=== PATIENT | female | born 1960 | race Caucasian/White ===

== ENCOUNTER 2017-03-06 23:59 | Emergency (ER) | payer OTHER ==
[~2017-03-06 23:59] MED LIST: FAMOTIDINE 20 MG/2 ML VIAL ONE; methylPREDNISolone SOD SUCCI 125 MG/2 ML VIAL ONE
== END 2017-03-07 01:50 | disposition home or self-care (01) ==
LOC: EC 23:59
DX: L27.0 Generalized skin eruption due to drugs and medicaments taken internally (principal); R00.2 Palpitations; T39.315A Adverse effect of propionic acid derivatives, initial encounter; Z88.8 Allergy status to other drugs, medicaments and biological substances
CPT/HCPCS: 96374; 96375; 99283

== ENCOUNTER → 2018-01-20 | Outpatient (CLI) | payer OTHER ==
[2018-01-20 10:53] LABS: Albumin 4.1 g/dL (3.5-5.0); Bilirubin, Delta 0.3 mg/dL (0.0-0.2); Bilirubin,Unconjugated 0.3 mg/dL (0.0-1.1); Total Bilirubin 0.6 mg/dL (0.2-1.3)
[2018-01-20 22:29] LABS: Hemoglobin A1C 5.7 % (4.0-6.0)
== END | disposition home or self-care (01) ==
LOC: LABWHC1 09:45
PROVIDERS: ATTEND Internal Medicine Critical Care Medicine
DX: Z00.00 Encounter for general adult medical examination without abnormal findings (principal); E55.9 Vitamin D deficiency, unspecified; E16.2 Hypoglycemia, unspecified; E06.3 Autoimmune thyroiditis
CPT/HCPCS: 36415; 80061; 80076; 82306; 83036; 84443; 84480

== ENCOUNTER → 2018-01-20 | Outpatient (CLI) | payer OTHER ==
[2018-01-20 10:47] LABS: Basophils # (A) 0.1 k/uL (0-0.2); Basophils % (A) 1 %; Eosinophils # (A) 0.3 k/uL (0-0.7); Eosinophils % (A) 4 %; HCT 43.9 % (34.0-46.0); HGB 14.4 gm/dL (11.4-16.0); Lymphocytes # (A) 1.7 k/uL (1.0-4.8); Lymphocytes % (A) 24 %; MCH 29.8 pg (25.0-35.0); MCHC 32.7 g/dL (31.0-37.0); MCV 91.2 fL (80.0-100.0); Mean Platelet Volume 7.6; Monocytes # (A) 0.5 k/uL (0-1.0); Monocytes % (A) 6 %; Neutrophils # (A) 4.5 k/uL (1.3-7.7); Neutrophils % (A) 63 %; Platelet Count 363 k/uL (150-450); RBC 4.81 m/uL (3.80-5.40); RDW 12.1 % (11.5-15.5); WBC 7.1 k/uL (3.8-10.6)
[2018-01-20 10:54] LABS: Potassium 4.6 mmol/L (3.5-5.1)
== END | disposition home or self-care (01) ==
LOC: LABPAT 09:47
PROVIDERS: ATTEND Orthopaedic Surgery
DX: Z01.812 Encounter for preprocedural laboratory examination (principal); M75.41 Impingement syndrome of right shoulder; Z01.818 Encounter for other preprocedural examination
CPT/HCPCS: 80051; 85025

== ENCOUNTER 2018-01-29 08:27 | Day surgery (SDC) | payer OTHER ==
[2018-01-27 12:12] VITALS: BMI 43.3
--- NOTE | 2018-01-28 16:43 | HP ---
HISTORY AND PHYSICAL Latricia Sevilla is a 57-year-old patient seen with progressive right shoulder pain. Treatment options were discussed. She elected to proceed with right shoulder arthroscopy. Consent regarding the procedure was obtained. PAST MEDICAL HISTORY: Hypothyroidism. PAST SURGICAL HISTORY: Cholecystectomy and hysterectomy. MEDICATIONS: Singular, Synthroid. ALLERGIES: NSAID. SOCIAL HISTORY: Patient denies tobacco use. PHYSICAL EXAMINATION: Evaluation right shoulder flexion is 150 degrees, abduction is 140 degrees, external rotation is 40 degrees with pain and weakness. There is tenderness along the anterior lateral acromion rotator cuff insertion site. Impingement sign is positive at 90 degrees. Drop-arm sign is positive. Distal neurovascular exam is intact. RADIOGRAPHS: Right shoulder radiographs revealed a type 2 anterior acromion, evidence for moderate acromioclavicular joint osteoarthritis. An MRI of the right shoulder revealed impingement with partial rotator cuff tear. IMPRESSION: Right shoulder impingement with partial rotator cuff tear and acromioclavicular joint osteoarthritis. PLAN: Right shoulder arthroscopy, subacromial decompression, possible arthroscopic rotator cuff repair, possible Inés procedure and debridement. Surgery scheduled for 01/29/2018. MMODL / IJN: [id number] /
[~2018-01-29 08:27] MED LIST changes: +DEXAMETHASONE SOD PHOSPHATE 10 MG/ML 1 ML VIAL IV ONE; -FAMOTIDINE 20 MG/2 ML VIAL ONE; +LACTATED RINGERS 1,000 ML IV SCH; +LIDOCAINE 1% 20 ML VIAL (10MG/ML) FOR IV START INTRADERMA PRN; +MIDAZOLAM 2 MG/2 ML VIAL IV PRN; +ONDANSETRON 4 MG/2 ML VIAL IVP ONE; +SCOPOLAMINE 1.5MG/72HR PATCH TRANSDERM ONE; +ceFAZolin IN SWFI 2 GM/20 ML SYRINGE IVP ONE; -methylPREDNISolone SOD SUCCI 125 MG/2 ML VIAL ONE
[2018-01-29 08:54] VITALS: RESP 16
[2018-01-29] MEDS ORDERED: MIDAZOLAM 2 MG/2 ML VIAL ONE (09:48)
[2018-01-29] MEDS ORDERED: fentaNYL (PF) 50 MCG/ML 2 ML AMP ONE (09:48)
[2018-01-29] MEDS ORDERED: PHENYLEPHRINE-0.9% NACL SYG 1 MG/10 ML SYRINGE ONE (09:48)
[2018-01-29] MEDS ORDERED: LIDOCAINE 1% INJ 10MG/ML (20 ML MDV) ONE (09:48)
[2018-01-29] MEDS ORDERED: PROPOFOL 10 MG/ML 20 ML VIAL IV ONE (09:48)
[2018-01-29] MEDS ORDERED: SUCCINYLCHOLINE CHLORIDE 100 MG/5 ML SYR IV ONE (09:48)
[2018-01-29] MEDS ORDERED: ROPIVACAINE 5 MG/ML 30 ML VIAL ONE (09:48)
[2018-01-29] MEDS ORDERED: LIDOCAINE 2%-EPI 1:100,000 20 ML VIAL ONE (09:48)
[2018-01-29] MEDS ORDERED: ePHEDrine SULFATE/0.9% NACL/PF 50 MG/5 ML SYRINGE IV ONE (09:48)
[2018-01-29] MEDS ORDERED: LACTATED RINGERS 1,000 ML IV ONE ×3 (10:41→15:31)
[2018-01-29] MEDS: MORPHINE SULFATE 2 MG/ML SYRINGE IV PRN ×3 (11:28→11:47)
--- NOTE | 2018-01-29 11:32 | P.OP ---
Date of Procedure: 01/29/18 Preoperative Diagnosis: Right shoulder impingement Postoperative Diagnosis: 1. Right shoulder rotator cuff tear 2. Right shoulder impingement 3. Right shoulder partial long head biceps tendon tear 4. Right shoulder superficial labral tear Procedure(s) Performed: 1. Right shoulder arthroscopic rotator cuff repair 2. Right shoulder arthroscopic subacromial decompression 3. Right shoulder arthroscopic biceps tenotomy 4. Right shoulder arthroscopic debridement labral tear Implants: 1-valeris 6.5 peek anchor 1-valeris 5.5 peek anchor Anesthesia: GETA, regional (Interscalene block) Surgeon: Rajeev Bartholomew [employer]1: Keegan Kerr Estimated Blood Loss (ml): 10 Pathology: none sent Condition: stable Disposition: PACU Indications for Procedure: 57-year-old patient seen with progressive right shoulder pain. After treatment options were discussed, she elected to proceed with arthroscopy. Operative Findings: see description of procedure Description of Procedure: Patient underwent a shoulder block by department of anesthesia. The patient was then taken to the operative suite. The patient underwent a general anesthetic by the department of anesthesia. The patient was placed into a lateral position and secured. There was appropriate padding of the bony prominence. Right shoulder was then prepped and draped in normal sterile orthopedic fashion. We placed the extremity in 10 pounds of longitudinal traction. A posterior incision was now made for a posterior working portal site. The trocar and cannula were inserted into the glenohumeral joint. Arthroscopy was initiated. Spinal needle was now inserted anteriorly, to ascertain the anterior working portal site. An incision was now made in that area, a trocar was inserted followed by a probe. There was some superficial tearing of the labrum present. Partial tearing long head biceps tendon with some hyperemia. Mild grade 1 chondromalacia changes. No loose bodies. I performed an arthroscopic biceps tenotomy. I debrided the labral tear down to stable tissue. Residual labrum was stable. Instruments now removed from glenohumeral joint. Utilizing the posterior working portal site, the trocar and cannula were inserted into the subacromial space. Arthroscopy initiated. I made an incision 2 fingerbreadths lateral to the acromion. I introduced my trocar followed by my [employer] ablator. I now began ablating thick subacromial bursal tissue, which exposed the undersurface of the anterior acromion. This was diminished subacromial space. There was a very prominent anterior acromion. A motorized bur was introduced and a subacromial decompression was performed. I also excised some osteophytes off the inferior aspect of the distal clavicle. The AC joint was visualized and noted to be moderately arthritic, not enough toward a Inés procedure. I turned my attention to the rotator cuff. There was a 1.5 cm tear along the anterior aspect of the super spinous. It was freely mobile over the footprint. I debrided the margins on a stable tissue. I abraded the footprint with a motorized bur. I passed 2 everted mattress sutures through good bites of rotator cuff tendon. I went to repair the tendon with a 5.5 lateral anchor and noted very soft bone. We now converted that to a 6.5 anchor which gave us reasonable purchase. We did have a dogear posteriorly. I passed a suture loop through that and then introduced a 5.5 anchor pulling that dogear down and compressing on the footprint nicely. Residual suture limbs were clipped. We had a good stable repair. I injected 1 mL UCT intra-articular. Instruments now removed from the portal sites. All portal sites were approximated with nylon suture. Sterile dressings were applied followed by a shoulder immobilizer. Luis Antonio RAMIREZ assisted with the procedure. The patient was awakened, transferred to a bed, and taken to recovery in stable condition.
[2018-01-29 11:35] VITALS: TEMP 96.9
[2018-01-29] MEDS ORDERED: diphenhydrAMINE 50 MG/ML 1 ML VIAL IVP ONE (11:39)
[2018-01-29] MEDS ORDERED: FAMOTIDINE 20 MG/2 ML VIAL IVP ONE (14:57)
[2018-01-29 15:03] LABS: Glucose,Whole Blood 110 mg/dL (75-99)
[2018-01-29] MEDS ORDERED: ONDANSETRON 4 MG/2 ML VIAL IVP ONE (15:17)
[2018-01-29 16:08] VITALS: BP 176/80; PULSE 58
--- NOTE | 2018-01-29 19:50 | P.ONQ ---
Anesthesiology Proc Note - PNB - Peripheral Nerve Block Performed Right Interscalene Single Time Out Performed: Yes Procedure Start Time: : Procedure Stop Time: :34 Indication: Acute Post-Operative Pain Sedation Type: Sedate with meaningful contact maintained Preparation: Sterile Prep Needle Size: 50mm (2") Needle Gauge: 21 Technique: Ultrasound Injectate: 0.5% Ropivacaine (see comment for volume) (ropi.5% 30cc) Blood Aspirated: No Pain Paresthesia on Injection Noted: No Resistance on Injection: Normal Events: Uneventful and Well Tolerated
== END 2018-01-29 16:45 | disposition home or self-care (01) ==
LOC: OR 08:27
PROVIDERS: ATTEND Orthopaedic Surgery
DX: M75.41 Impingement syndrome of right shoulder (principal); M19.011 Primary osteoarthritis, right shoulder; S46.111A Strain of muscle, fascia and tendon of long head of biceps, right arm, initial encounter; S43.491A Other sprain of right shoulder joint, initial encounter; M94.211 Chondromalacia, right shoulder; X58.XXXA Exposure to other specified factors, initial encounter; E03.9 Hypothyroidism, unspecified; Z79.899 Other long term (current) drug therapy; Z79.890 Hormone replacement therapy; Z88.6 Allergy status to analgesic agent; Z88.8 Allergy status to other drugs, medicaments and biological substances
CPT/HCPCS: 64415; 29822; 29826; 29827; C1713 ×2; C1765; J2250; J1200; J2405; J2001; J3010; J2270; J2795; J2370; J0330; J2704; J0690

== ENCOUNTER 2018-07-27 19:16 | Emergency (ER) | payer OTHER ==
[2018-07-27 19:36] VITALS: BP 165/85; PULSE 68; RESP 18; TEMP 98.1
[2018-07-27] MEDS ORDERED: TOPICAL SKIN ADHESIVE 1 EACH AMP TOPICAL ONE (19:46)
--- NOTE | 2018-07-27 19:55 | ED ---
General Adult HPI - General Chief complaint: Wound/Laceration Stated complaint: finger lac Time Seen by Provider: 07/27/18 19:40 Source: patient, RN notes reviewed Mode of arrival: ambulatory Limitations: no limitations - History of Present Illness Initial comments: Patient's a 58-year-old female presented to the emergency room today with a chief complaint of laceration to the left index finger. Patient does admit that she was cutting a piece of bread with a serrated bread knife earlier today when asked slipped causing this laceration. Patient does admit that she's had some mild bleeding since. Patient states her tetanus is up-to-date. She denies any other complaints or symptoms. - Related Data Home Medications Medication Instructions Recorded Confirmed Levothyroxine Sodium [Synthroid] 125 mcg PO DAILY 11/01/15 01/29/18 Omeprazole/Sodium Bicarbonate 1 each PO BID 11/01/15 01/29/18 [Zegerid 20 mg Capsule] Cholecalciferol (Vitamin D3) 2,000 unit PO DAILY 01/27/18 01/29/18 [Vitamin D3] Montelukast [Singulair] 10 mg PO DAILY 01/27/18 01/29/18 Allergies Allergy/AdvReac Type Severity Reaction Status Date / Time aspirin Allergy Rash/Hives Verified 07/27/18 19:36 NSAIDS (Non-Steroidal Allergy Rash/Hives Verified 07/27/18 19:36 Anti-Inflamma Review of Systems ROS Statement: Those systems with pertinent positive or pertinent negative responses have been documented in the HPI. ROS Other: All systems not noted in ROS Statement are negative. Past Medical History Past Medical History: GERD/Reflux, Thyroid Disorder Additional Past Medical History / Comment(s): sm hiatal hernia, IBS, History of Any Multi-Drug Resistant Organisms: None Reported Past Surgical History: Appendectomy, Cholecystectomy, Hysterectomy Additional Past Surgical History / Comment(s): Rotator cuff right arm Past Anesthesia/Blood Transfusion Reactions: Motion Sickness, Postoperative Nausea & Vomiting (PONV) Past Psychological History: No Psychological Hx Reported Smoking Status: Former smoker Past Alcohol Use History: None Reported Past Drug Use History: None Reported - Past Family History Mother Family Medical History: Cancer Father Family Medical History: Cancer General Exam - General Exam Comments Initial Comments: General: The patient is awake and alert, in no distress, and does not appear acutely ill. Neck: The neck is supple, there is no tenderness or JVD. Musculoskeletal: Full range motion. Sensation intact. Strength 5/5. Neurological: A&O x 3. CN II-XII intact, There are no obvious motor or sensory deficits. Coordination appears grossly intact. Speech is normal. Skin: 1 cm linear laceration to the posterior medial aspect of the left index finger. No active bleeding. Psychiatric: Normal mood and affect. Limitations: no limitations Course Vital Signs 07/27/18 19:35 Temperature 98.1 F Pulse Rate 68 Respiratory 18 Rate Blood Pressure 165/85 O2 Sat by Pulse 95 Oximetry Procedures - Procedures Initial comment: (Finger was cleaned with saline. Wound edges were approximated and closed with skin adhesive. Patient tolerated the procedure well. Medical Decision Making - Medical Decision Making Options were discussed with patient about sutures versus glue. She has opted for glue. Area was cleaned with saline and skin adhesive was applied. She tolerated the procedure well. Patient advised watching for any signs of infection. Advised return for any other concerns. Disposition Clinical Impression: Laceration Disposition: HOME SELF-CARE Condition: Good Instructions: Laceration (ED) Additional Instructions: Please allow the glue to fall off on its own over the next 3-5 days. Please watch for any signs of infection which may include increased pain, swelling, redness, fever or chills. Please return to emergency room for any other concerns. Is patient prescribed a controlled substance at d/c from ED?: No Referrals: Jake Fleton MD [Primary Care Provider] - 1-2 days Time of Disposition: 19:55
== END 2018-07-27 20:18 | disposition home or self-care (01) ==
LOC: EC 19:16
DX: S61.211A Laceration without foreign body of left index finger without damage to nail, initial encounter (principal); K21.9 Gastro-esophageal reflux disease without esophagitis; E07.9 Disorder of thyroid, unspecified; Z87.891 Personal history of nicotine dependence; Z88.6 Allergy status to analgesic agent; Z79.899 Other long term (current) drug therapy; W26.0XXA Contact with knife, initial encounter; Y93.89 Activity, other specified
CPT/HCPCS: 99282

== ENCOUNTER → 2018-11-13 | Outpatient (CLI) | payer OTHER ==
--- NOTE | 2018-11-19 08:48 | MM ---
Reason for exam: additional evaluation requested from prior study. Last mammogram was performed 19 years and 5 months ago. History: Patient is postmenopausal. Family history of breast cancer in mother at age 45 and breast cancer in maternal aunt at age 35. Benign ultrasound-guided cyst aspiration, June 20, 1999. Physical Findings: Nurse did not find any significant physical abnormalities on exam. [facility] Diagnostic Mammo w CAD DOROTHY Bilateral CC and MLO view(s) were taken. Prior study comparison: March 28, 2017, mammogram. March 31, 2012, mammogram. The breast tissue is heterogeneously dense. This may lower the sensitivity of mammography. There is a left upper outer quadrant mass less conspicuous than in 2012. There are benign appearing stable regional upper outer quadrant bilateral calcifications similar to priors dating back to 2011. No suspicious abnormality. No significant new findings when compared with previous films. These results were verbally communicated with the patient and result sheet given to the patient on 11/13/18. ASSESSMENT: Benign, BI-RAD 2 RECOMMENDATION: Routine screening mammogram of both breasts in 1 year.
== END | disposition home or self-care (01) ==
LOC: RADMAMWWP 13:42
PROVIDERS: ATTEND Internal Medicine Critical Care Medicine
DX: R92.8 Other abnormal and inconclusive findings on diagnostic imaging of breast (principal)
CPT/HCPCS: 77066

== ENCOUNTER → 2018-11-18 | Outpatient (CLI) | payer OTHER ==
[2018-11-18 10:30] LABS: Basophils # (A) 0.1 k/uL (0-0.2); Basophils % (A) 1 %; Eosinophils # (A) 0.4 k/uL (0-0.7); Eosinophils % (A) 5 %; HGB 13.7 gm/dL (11.4-16.0); Lymphocytes # (A) 1.8 k/uL (1.0-4.8); Lymphocytes % (A) 25 %; MCH 29.6 pg (25.0-35.0); MCHC 31.8 g/dL (31.0-37.0); MCV 93.2 fL (80.0-100.0); Mean Platelet Volume 7.5; Monocytes # (A) 0.5 k/uL (0-1.0); Monocytes % (A) 7 %; Neutrophils # (A) 4.1 k/uL (1.3-7.7); Neutrophils % (A) 58 %; Platelet Count 418 k/uL (150-450); RBC 4.61 m/uL (3.80-5.40); RDW 12.4 % (11.5-15.5)
[2018-11-18 16:23] LABS: Albumin/Globulin Ratio 1.74 (1.20-2.10); Anion Gap 6.1 mmol/L (4.00-12.00); Calcium 9.2 mg/dL (8.7-10.3); Carbon Dioxide 25.9 mmol/L (21.6-31.8); Globulin 2.3 g/dL (1.6-3.3); Potassium 4.6 mmol/L (3.5-5.5); Total Bilirubin 0.5 mg/dL (0.2-1.2); Total Protein 6.3 g/dL (6.2-8.2)
[2018-11-18 16:31] LABS: T4, Free (Free Thyroxine) 1.9 ng/dL (0.80-1.80)
== END | disposition home or self-care (01) ==
LOC: LABWHC1 08:51
PROVIDERS: ATTEND Internal Medicine Critical Care Medicine
DX: E78.5 Hyperlipidemia, unspecified (principal); E06.3 Autoimmune thyroiditis
CPT/HCPCS: 36415; 80053; 80061; 84439; 84443; 85025

== ENCOUNTER 2018-12-08 11:51 | Emergency (ER) | payer OTHER ==
[2018-12-08 12:12] VITALS: RESP 18
--- NOTE | 2018-12-08 12:33 | ED ---
General Adult HPI - General Chief complaint: Abdominal Pain Stated complaint: abd pain Time Seen by Provider: 12/08/18 12:32 Source: patient, RN notes reviewed Mode of arrival: ambulatory Limitations: no limitations - History of Present Illness Initial comments: 58-year-old female with a past medical history of GERD, thyroid disorder, hiatal hernia, IBS presents to the emergency department for a chief complaint of back and abdominal pain. Patient states she has had low back pain for the past week. She states this is worse with movement. Patient states today it hurt to bend down and put her socks on. Patient denies any fevers or chills. She denies any nausea or vomiting. Patient denies any weakness in the legs or radiating pain into the legs. She denies any bladder or bowel changes but does states she feels like she has pressure over her bladder. She also admits that her stools have been thinner than normal over the past several days. Patient also complains of a lower abdominal pressure. Patient has a history of appendectomy. Patient states his abdominal pain just started today. Patient has no other complaints at this time including shortness of breath, chest pain, abdominal pain, nausea or vomiting, headache, or visual changes. - Related Data Home Medications Medication Instructions Recorded Confirmed Levothyroxine Sodium [Synthroid] 125 mcg PO DAILY 11/01/15 12/08/18 Omeprazole/Sodium Bicarbonate 1 cap PO DAILY 11/01/15 12/08/18 [Zegerid 20 mg Capsule] Cetirizine HCl [Zyrtec] 10 mg PO DAILY 12/08/18 12/08/18 EPINEPHrine (Auto Inject) [Epipen] 0.3 mg IM ONCE PRN 12/08/18 12/08/18 Ergocalciferol (Vitamin D2) 50,000 unit PO FR 12/08/18 12/08/18 [Vitamin D2] Fluticasone Nasal Rosebud [Flonase 1 spray EA NOSTRIL DAILY 12/08/18 12/08/18 Nasal Rosebud] Allergies Allergy/AdvReac Type Severity Reaction Status Date / Time aspirin Allergy Rash/Hives Verified 12/08/18 12:30 NSAIDS (Non-Steroidal Allergy Rash/Hives Verified 12/08/18 12:30 Anti-Inflamma Review of Systems ROS Statement: Those systems with pertinent positive or pertinent negative responses have been documented in the HPI. ROS Other: All systems not noted in ROS Statement are negative. Past Medical History Past Medical History: GERD/Reflux, Thyroid Disorder Additional Past Medical History / Comment(s): sm hiatal hernia, IBS, History of Any Multi-Drug Resistant Organisms: None Reported Past Surgical History: Appendectomy, Cholecystectomy, Hysterectomy Additional Past Surgical History / Comment(s): Rotator cuff right arm Past Anesthesia/Blood Transfusion Reactions: Motion Sickness, Postoperative Nausea & Vomiting (PONV) Past Psychological History: No Psychological Hx Reported Smoking Status: Former smoker Past Alcohol Use History: None Reported Past Drug Use History: None Reported - Past Family History Mother Family Medical History: Cancer Father Family Medical History: Cancer General Exam Limitations: no limitations Course Vital Signs 12/08/18 12/08/18 12:11 16:21 Temperature 98.5 F 97.7 F Pulse Rate 85 70 Respiratory 18 18 Rate Blood Pressure 167/100 181/87 O2 Sat by Pulse 98 94 L Oximetry Medical Decision Making - Medical Decision Making 58-year-old female presents to the emergency department for a chief complaint of back pain and abdominal pain. Back pain has been ongoing for the past week. Patient denies any radiating pain down the legs or weakness in the bilateral legs. She denies any bladder or bowel changes but does like she has pressure over her bladder. Postvoid residual 45 which is minimal. Rectal tone intact. PD pulses 2+ bilaterally. Abdomen has moderate tenderness noted to the lower aspect, no upper abdominal tenderness. CBC and CMP are unremarkable. Urine does not show any evidence of infection. CT of the abdomen and pelvis with contrast shows no acute intra-abdominal process. However there is a grade 1 anterolisthesis of L5 on S1 without pars interarticularis defects as well as mild multilevel degenerative changes. Likely cause of patient's back pain, will be referred to Dr. Barrera. Mild hepatic steatosis and right renal scarring also discussed with patient, no kidney failure evident at this time. Very small hiatal hernia present which patient is aware of. On reevaluation patient is feeling much better. I did discuss these findings with her and she will follow-up with Dr. Barrera for back pain as well as her GI specialist Dr. Galvez for abdominal pain. Discussed returning here if she has any worsening symptoms. - Lab Data Result diagrams: 12/08/18 13:31 12/08/18 13:31 Lab Results 12/08/18 12/08/18 12/08/18 Range/Units 13:31 13:31 13:31 WBC 8.0 (3.8-10.6) k/uL RBC 4.89 (3.80-5.40) m/uL Hgb 15.2 (11.4-16.0) gm/dL Hct 45.0 (34.0-46.0) % MCV 92.0 (80.0-100.0) fL MCH 31.1 (25.0-35.0) pg MCHC 33.8 (31.0-37.0) g/dL RDW 12.4 (11.5-15.5) % Plt Count 393 (150-450) k/uL Neutrophils % 66 % Lymphocytes % 20 % Monocytes % 7 % Eosinophils % 3 % Basophils % 2 % Neutrophils # 5.3 (1.3-7.7) k/uL Lymphocytes # 1.6 (1.0-4.8) k/uL Monocytes # 0.6 (0-1.0) k/uL Eosinophils # 0.2 (0-0.7) k/uL Basophils # 0.1 (0-0.2) k/uL Sodium 141 (137-145) mmol/L Potassium 5.0 (3.5-5.1) mmol/L Chloride 107 (98-107) mmol/L Carbon Dioxide 26 (22-30) mmol/L Anion Gap 8 mmol/L BUN 16 (7-17) mg/dL Creatinine 0.75 (0.52-1.04) mg/dL Est GFR (CKD-EPI)AfAm >90 (>60 ml/min/1.73 sqM) Est GFR (CKD-EPI)NonAf 88 (>60 ml/min/1.73 sqM) Glucose 105 H (74-99) mg/dL Calcium 10.1 (8.4-10.2) mg/dL Total Bilirubin 0.7 (0.2-1.3) mg/dL AST 23 (14-36) U/L ALT 30 (9-52) U/L Alkaline Phosphatase 101 (38-126) U/L Total Protein 7.7 (6.3-8.2) g/dL Albumin 4.5 (3.5-5.0) g/dL Amylase 45 (30-110) U/L Lipase 105 (23-300) U/L Urine Color Light Yellow Urine Appearance Clear (Clear) Urine pH 5.5 (5.0-8.0) Ur Specific Bledsoe 1.007 (1.001-1.035) Urine Protein Negative (Negative) Urine Glucose (UA) Negative (Negative) Urine Ketones Negative (Negative) Urine Blood Negative (Negative) Urine Nitrite Negative (Negative) Urine Bilirubin Negative (Negative) Urine Urobilinogen <2.0 (<2.0) mg/dL Ur Leukocyte Esterase Negative (Negative) Disposition Clinical Impression: Abdominal pain, Anterolisthesis Disposition: HOME SELF-CARE Condition: Good Instructions: Abdominal Pain (ED), Back Pain (ED) Additional Instructions: Take Tylenol [address] or operate machinery while taking Tylenol 3. Please follow up with Dr. Galvez for abdominal pain. Follow-up with Dr. Barrera for back pain. Follow up with her primary care as well. Return to the emergency department if you have any worsening symptoms or symptoms are not resolving. Is patient prescribed a controlled substance at d/c from ED?: No Referrals: Jake Felton MD [Primary Care Provider] - 1-2 days Silvana Galvez MD [STAFF PHYSICIAN] - 1-2 days Yessenia Barrera DO [Doctor of Osteopathic Medicine] - 1-2 days Time of Disposition: 15:57
[2018-12-08] MEDS ORDERED: SODIUM CHLORIDE 0.9% 1,000 ML IV STA (13:01)
[2018-12-08] MEDS ORDERED: ONDANSETRON 4 MG/2 ML VIAL IVP STA (13:02)
[2018-12-08] MEDS ORDERED: MORPHINE SULFATE 4 MG/ML SYRINGE IVP STA (13:02)
[2018-12-08 14:02] LABS: Basophils # (A) 0.1 k/uL (0-0.2); Basophils % (A) 2 %; Eosinophils # (A) 0.2 k/uL (0-0.7); Eosinophils % (A) 3 %; HGB 15.2 gm/dL (11.4-16.0); Lymphocytes # (A) 1.6 k/uL (1.0-4.8); Lymphocytes % (A) 20 %; MCH 31.1 pg (25.0-35.0); MCHC 33.8 g/dL (31.0-37.0); Mean Platelet Volume 7.3; Monocytes # (A) 0.6 k/uL (0-1.0); Monocytes % (A) 7 %; Neutrophils # (A) 5.3 k/uL (1.3-7.7); Neutrophils % (A) 66 %; Platelet Count 393 k/uL (150-450); RBC 4.89 m/uL (3.80-5.40); RDW 12.4 % (11.5-15.5)
[2018-12-08 14:11] LABS: Appearance,Urine Clear (Clear); Bilirubin,Urine Negative (Negative); Blood,Urine Negative (Negative); Color,Urine Light Yellow; Glucose,Urine (UA) Negative (Negative); Ketones,Urine Negative (Negative); Leukocyte Esterase,Urine Negative (Negative); Nitrite,Urine Negative (Negative); PH, Urine 5.5 (5.0-8.0); Protein,Urine Negative (Negative); Specific Gravity,Urine 1.007 (1.001-1.035); Urobilinogen,Urine <2.0 mg/dL (<2.0)
[2018-12-08 14:13] LABS: ALT 30 U/L (9-52); AST 23 U/L (14-36); Albumin 4.5 g/dL (3.5-5.0); Alkaline Phosphatase 101 U/L (38-126); Amylase 45 U/L (30-110); Anion Gap 8 mmol/L; Blood Urea Nitrogen 16 mg/dL (7-17); Calcium 10.1 mg/dL (8.4-10.2); Carbon Dioxide 26 mmol/L (22-30); Chloride 107 mmol/L (98-107); Glucose 105 mg/dL (74-99); Lipase 105 U/L (23-300); Sodium 141 mmol/L (137-145); Total Bilirubin 0.7 mg/dL (0.2-1.3); Total Protein 7.7 g/dL (6.3-8.2)
[2018-12-08] MEDS ORDERED: Acetaminophen-Codeine 300-30mg TAB PO STA (14:55)
--- NOTE | 2018-12-08 14:56 | CT ---
EXAMINATION TYPE: CT abdomen pelvis w con DATE OF EXAM: 12/08/2018 HISTORY: Abdominal pain and back pain for approximately one week CT DLP: 1387.8mGycm Automated Exposure Control for Dose Reduction was Utilized. CONTRAST: CT scan of the abdomen and pelvis is performed with IV Contrast, patient injected with 100 mL of Isov ue 300. COMPARISON: None. FINDINGS: LUNG BASES: No significant abnormality is appreciated. LIVER/GB: Hepatic parenchyma is diffusely hypoattenuated in comparison to that of the spleen, most co mmonly seen in hepatic steatosis. This finding limits evaluation for hepatic masses. No gross evidenc e of hepatic mass is seen. No intrahepatic biliary ductal dilatation. The gallbladder surgically abse nt. PANCREAS: No significant abnormality is seen. SPLEEN: No significant abnormality is seen. ADRENALS: No significant abnormality is seen. KIDNEYS: Cortical scarring is seen of the right upper pole with subsequent minor calyceal dilatation and/or calyceal diverticulum on delayed images. BOWEL: There is a very small hiatal hernia noted. No dilated large or small bowel is seen. No pericol onic or perienteric fat stranding. Appendix is not visualized however no right lower quadrant inflamm atory changes are noted. LYMPH NODES: No greater than 1cm abdominal or pelvic lymph nodes are appreciated. OSSEOUS STRUCTURES: There is grade 1 anterolisthesis of L5 on S1 without pars interarticularis defect s. This may be on a degenerative basis and results in disc uncovering. Minimal degenerative changes o f the remainder the visualized lumbosacral spine are noted. OTHER: Mild atherosclerosis is seen of the abdominal aorta and its branches. There is a very small fa t filled umbilical hernia. IMPRESSION: 1. No acute intra-abdominal process. 2. Mild multilevel degenerative changes of the visualized thoracal lumbar spine in this patient with back pain. There is grade 1 anterolisthesis of L5 on S1 without pars interarticularis defects. 3. Mild hepatic steatosis. 4. Right renal scarring. 5. Very small hiatal hernia.
[2018-12-08] MEDS ORDERED: ACET/COD 300 MG/30 MG STARTER PACK 6 TAB BTL PO STA (15:58)
[2018-12-08 16:22] VITALS: BP 181/87; PULSE 70; TEMP 97.7
== END 2018-12-08 16:22 | disposition home or self-care (01) ==
LOC: EC 11:51
DX: R10.9 Unspecified abdominal pain (principal); M43.17 Spondylolisthesis, lumbosacral region; K76.0 Fatty (change of) liver, not elsewhere classified; K44.9 Diaphragmatic hernia without obstruction or gangrene; K21.9 Gastro-esophageal reflux disease without esophagitis; E07.9 Disorder of thyroid, unspecified; Z79.51 Long term (current) use of inhaled steroids; Z79.899 Other long term (current) drug therapy; Z88.6 Allergy status to analgesic agent; Z87.891 Personal history of nicotine dependence; Z90.49 Acquired absence of other specified parts of digestive tract; Z90.89 Acquired absence of other organs; Z90.710 Acquired absence of both cervix and uterus
CPT/HCPCS: 36415; 93005; 80053; 82150; 83690; 85025; 81003; 74177; 99284; 96360; Q9967

== ENCOUNTER → 2019-04-06 | Outpatient (CLI) | payer OTHER ==
--- NOTE | 2019-04-06 10:29 | US ---
EXAMINATION TYPE: US thyroid st tissue head/neck DATE OF EXAM: 04/06/2019 COMPARISON: NONE CLINICAL HISTORY: E04.9 Goiter. GLAND SIZE: Right Lobe: 6.4 x 3.9 x 6.1 cm Overall Parenchyma: cyst obscures thyroid tissue Left Lobe: 2.7 x 1.1 x 0.7 cm Overall Parenchyma: heterogeneous Isthmus Thickness: 0.3 cm NODULES RIGHT: # of nodules measured on right: 1 1. 6.1 X 3.7 x 5.6 cm anechoic cystic nodule at the mid pole with well-defined margins. This nodul e is wider than tall and shows no intranodular vascularity. No prior LEFT: # of nodules measured on left: 0 ISTHMUS: # of nodules measured in the isthmus: 0 Bilateral neck scanned, no evidence of lymphadenopathy. IMPRESSION: Thyroid gland is diffusely heterogenous and atrophic (large right cyst increases measurements of the right thyroid gland). Findings most commonly related to chronic thyroiditis. The 6 cm cyst appears sm oothly marginated and is likely benign however aspiration with cytology could be performed given its large size versus short-term surveillance.
== END | disposition home or self-care (01) ==
LOC: RADUSWWP 07:39
PROVIDERS: ATTEND Internal Medicine Critical Care Medicine
DX: E03.4 Atrophy of thyroid (acquired) (principal); E04.1 Nontoxic single thyroid nodule
CPT/HCPCS: 76536

== ENCOUNTER 2019-05-11 12:27 | Day surgery (SDC) | payer OTHER ==
[2019-05-11 13:01] VITALS: RESP 16; TEMP 98
[2019-05-11] MEDS ORDERED: ALPRAZolam 0.5 MG TAB PO STA (13:08)
[2019-05-11 14:40] VITALS: BP 138/82; PULSE 69
--- NOTE | 2019-05-11 15:05 | US ---
ULTRASOUND GUIDED FNA THYROID BIOPSY: CLINICAL HISTORY: Large right 6 cm thyroid cyst requested for fine-needle aspiration FINDINGS: The procedure was explained to the patient. The risks, complications, benefits and alternatives were discussed and any questions were answered. Informed consent was obtained. Patient was placed supin e on the ultrasound table and prepped and draped in the usual sterile fashion. Utilizing a 25 gauge needle, single pass was made into the large right thyroid cyst and approximately 44 cc of serous flui d was aspirated and sent to pathology for analysis. There is no solid component. Patient was stable throughout the procedure. Pathology is pending. All elements of maximal barrier technique were utilized. IMPRESSION: 1. Successful ultrasound guided FNA thyroid biopsy.
== END 2019-05-11 14:10 | disposition home or self-care (01) ==
LOC: RADPROMAIN 12:27
PROVIDERS: ATTEND Internal Medicine Endocrinology, Diabetes & Metabolism
DX: E04.1 Nontoxic single thyroid nodule (principal)
CPT/HCPCS: 10005; 88173; 88305

== ENCOUNTER 2020-08-08 16:43 | Emergency (ER) | payer OTHER ==
[2020-08-08] MEDS ORDERED: PANTOPRAZOLE 40 MG/10 ML VIAL IVP STA (17:06)
[2020-08-08] MEDS ORDERED: IOPAMIDOL CONTRAST (ORAL USE) VIAL PO PRN (17:06)
[2020-08-08] MEDS ORDERED: ONDANSETRON 4 MG/2 ML VIAL IVP STA (17:06)
[2020-08-08] MEDS ORDERED: DICYCLOMINE 10 MG/ML 2 ML AMP IM STA (17:06)
[2020-08-08] MEDS ORDERED: SODIUM CHLORIDE 0.9% 1,000 ML IV STA (17:06)
--- NOTE | 2020-08-08 17:11 | ED ---
General Adult HPI - General Chief complaint: Abdominal Pain Stated complaint: abd pain Time Seen by Provider: 08/08/20 16:56 Source: patient, RN notes reviewed Mode of arrival: ambulatory Limitations: no limitations - History of Present Illness Initial comments: Patient is a pleasant 60-year-old female presenting to the emergency Department with complaints of abdominal discomfort. Onset of symptoms was around 4 days ago. Symptoms have been fairly steady since that time. Symptoms are worsened with occasional foods. Discomfort is upper abdomen, epigastric and left upper epigastric. Patient has some mild nausea without vomiting. Patient has had diarrhea around 4 times per day which is not terribly abnormal for her. No dysuria or hematuria. Patient does have history of GERD and hiatal hernia. - Related Data Home Medications Medication Instructions Recorded Confirmed Levothyroxine Sodium [Synthroid] 100 mcg PO DAILY 11/01/15 05/06/19 Omeprazole/Sodium Bicarbonate 1 cap PO DAILY 11/01/15 05/06/19 [Zegerid 20 mg Capsule] EPINEPHrine (Auto Inject) [Epipen] 0.3 mg IM ONCE PRN 12/08/18 05/06/19 Ergocalciferol (Vitamin D2) 50,000 unit PO FR 12/08/18 05/06/19 [Vitamin D2] Fluticasone Nasal [place] [Flonase 1 spray EA NOSTRIL DAILY 12/08/18 05/06/19 Nasal [place]] Montelukast [Singulair] 10 mg PO DAILY 05/06/19 05/11/19 Previous Rx's Medication Instructions Recorded Dicyclomine [Bentyl] 20 mg PO QID PRN #20 tablet 08/08/20 Allergies Allergy/AdvReac Type Severity Reaction Status Date / Time aspirin Allergy Rash/Hives Verified 08/08/20 16:52 NSAIDS (Non-Steroidal Allergy Rash/Hives Verified 08/08/20 16:52 Anti-Inflamma hydromorphone [From Dilaudid] AdvReac Unknown Verified 08/08/20 20:25 Review of Systems ROS Statement: Those systems with pertinent positive or pertinent negative responses have been documented in the HPI. ROS Other: All systems not noted in ROS Statement are negative. Constitutional: Denies: fever Eyes: Denies: eye pain ENT: Denies: ear pain Respiratory: Denies: cough Cardiovascular: Denies: chest pain Endocrine: Denies: fatigue Gastrointestinal: Reports: as per HPI, abdominal pain, nausea, diarrhea. Denies: vomiting Genitourinary: Denies: dysuria Musculoskeletal: Denies: back pain Skin: Denies: rash Neurological: Denies: weakness Past Medical History Past Medical History: GERD/Reflux, Thyroid Disorder Additional Past Medical History / Comment(s): sm hiatal hernia, IBS, History of Any Multi-Drug Resistant Organisms: None Reported Past Surgical History: Appendectomy, Cholecystectomy, Hysterectomy, Tonsil lectomy Additional Past Surgical History / Comment(s): Rotator cuff right arm Past Anesthesia/Blood Transfusion Reactions: Motion Sickness, Postoperative Nausea & Vomiting (PONV) Past Psychological History: Depression Smoking Status: Former smoker Past Alcohol Use History: None Reported Past Drug Use History: None Reported - Past Family History Mother Family Medical History: Cancer Father Family Medical History: Cancer General Exam Limitations: no limitations General appearance: alert, in no apparent distress Head exam: Present: normocephalic Eye exam: Present: normal appearance Neck exam: Present: normal inspection Respiratory exam: Present: normal lung sounds bilaterally Cardiovascular Exam: Present: regular rate, normal rhythm Expanded Peripheral pulses: 2+: Posterior Tibialis (R), Posterior Tibialis (L), Dorsalis Pedis (R), Dorsalis Pedis (L) GI/Abdominal exam: Present: soft, tenderness (Moderate tenderness left upper quadrant), normal bowel sounds. Absent: distended, guarding, rebound, rigid, pulsatile mass Extremities exam: Present: normal inspection Neurological exam: Present: alert Psychiatric exam: Present: normal affect, normal mood Skin exam: Present: normal color Course Vital Signs 08/08/20 08/08/20 08/08/20 16:49 18:30 19:15 Temperature 98.4 F 98.0 F Pulse Rate 94 80 97 Respiratory 18 18 18 Rate Blood Pressure 170/88 173/91 181/94 O2 Sat by Pulse 98 98 100 Oximetry 08/08/20 08/08/20 08/08/20 19:56 20:20 21:00 Temperature Pulse Rate 97 87 89 Respiratory 20 18 18 Rate Blood Pressure 190/118 185/90 153/86 O2 Sat by Pulse 98 99 96 Oximetry EKG Findings - EKG Comments: EKG Findings:: Neuro complex rate of 89. NM 150. QRS 84. QT 366. QTc 445. Normal axis. Normal QRS. No acute ST change. Medical Decision Making - Medical Decision Making Patient reevaluated and resting comfortably in bed. Patient is feeling much better. Abdomen soft and nontender. Patient states she feels the Bentyl helps her and requests a prescription for this. Patient is advised follow-up, including GI follow-up for endoscopy. - Lab Data Result diagrams: 08/08/20 17:25 08/08/20 17:25 Lab Results 08/08/20 08/08/20 08/08/20 Range/Units 17:25 17:25 17:25 WBC 11.6 H (3.8-10.6) k/uL RBC 4.93 (3.80-5.40) m/uL Hgb 15.1 (11.4-16.0) gm/dL Hct 44.8 (34.0-46.0) % MCV 91.0 (80.0-100.0) fL MCH 30.6 (25.0-35.0) pg MCHC 33.6 (31.0-37.0) g/dL RDW 11.7 (11.5-15.5) % Plt Count 449 (150-450) k/uL Neutrophils % 75 % Lymphocytes % 13 % Monocytes % 7 % Eosinophils % 2 % Basophils % 1 % Neutrophils # 8.7 H (1.3-7.7) k/uL Lymphocytes # 1.5 (1.0-4.8) k/uL Monocytes # 0.8 (0-1.0) k/uL Eosinophils # 0.2 (0-0.7) k/uL Basophils # 0.2 (0-0.2) k/uL PT 10.0 (9.0-12.0) sec INR 1.0 (<1.2) APTT 24.7 (22.0-30.0) sec Sodium (137-145) mmol/L Potassium (3.5-5.1) mmol/L Chloride (98-107) mmol/L Carbon Dioxide (22-30) mmol/L Anion Gap mmol/L BUN (7-17) mg/dL Creatinine (0.52-1.04) mg/dL Est GFR (CKD-EPI)AfAm (>60 ml/min/1.73 sqM) Est GFR (CKD-EPI)NonAf (>60 ml/min/1.73 sqM) Glucose (74-99) mg/dL Calcium (8.4-10.2) mg/dL Total Bilirubin (0.2-1.3) mg/dL AST (14-36) U/L ALT (4-34) U/L Alkaline Phosphatase (38-126) U/L Total Protein (6.3-8.2) g/dL Albumin (3.5-5.0) g/dL Amylase (30-110) U/L Lipase (23-300) U/L Urine Color Yellow Urine Appearance Cloudy H (Clear) Urine pH 6.0 (5.0-8.0) Ur Specific [place] 1.027 (1.001-1.035) Urine Protein Trace H (Negative) Urine Glucose (UA) Negative (Negative) Urine Ketones Negative (Negative) Urine Blood Negative (Negative) Urine Nitrite Negative (Negative) Urine Bilirubin Negative (Negative) Urine Urobilinogen 2.0 (<2.0) mg/dL Ur Leukocyte Esterase Trace H (Negative) Urine RBC 4 (0-5) /hpf Urine WBC 4 (0-5) /hpf Ur Squamous Epith Cells 9 H (0-4) /hpf Urine Bacteria Few H (None) /hpf Urine Mucus Occasional H (None) /hpf 08/08/20 Range/Units 17:25 WBC (3.8-10.6) k/uL RBC (3.80-5.40) m/uL Hgb (11.4-16.0) gm/dL Hct (34.0-46.0) % MCV (80.0-100.0) fL MCH (25.0-35.0) pg MCHC (31.0-37.0) g/dL RDW (11.5-15.5) % Plt Count (150-450) k/uL Neutrophils % % Lymphocytes % % Monocytes % % Eosinophils % % Basophils % % Neutrophils # (1.3-7.7) k/uL Lymphocytes # (1.0-4.8) k/uL Monocytes # (0-1.0) k/uL Eosinophils # (0-0.7) k/uL Basophils # (0-0.2) k/uL PT (9.0-12.0) sec INR (<1.2) APTT (22.0-30.0) sec Sodium 138 (137-145) mmol/L Potassium 4.3 (3.5-5.1) mmol/L Chloride 102 (98-107) mmol/L Carbon Dioxide 28 (22-30) mmol/L Anion Gap 8 mmol/L BUN 15 (7-17) mg/dL Creatinine 0.99 (0.52-1.04) mg/dL Est GFR (CKD-EPI)AfAm 71 (>60 ml/min/1.73 sqM) Est GFR (CKD-EPI)NonAf 62 (>60 ml/min/1.73 sqM) Glucose 124 H (74-99) mg/dL Calcium 9.8 (8.4-10.2) mg/dL Total Bilirubin 0.6 (0.2-1.3) mg/dL AST 23 (14-36) U/L ALT 23 (4-34) U/L Alkaline Phosphatase 121 (38-126) U/L Total Protein 7.7 (6.3-8.2) g/dL Albumin 4.4 (3.5-5.0) g/dL Amylase 46 (30-110) U/L Lipase 127 (23-300) U/L Urine Color Urine Appearance (Clear) Urine pH (5.0-8.0) Ur Specific [place] (1.001-1.035) Urine Protein (Negative) Urine Glucose (UA) (Negative) Urine Ketones (Negative) Urine Blood (Negative) Urine Nitrite (Negative) Urine Bilirubin (Negative) Urine Urobilinogen (<2.0) mg/dL Ur Leukocyte Esterase (Negative) Urine RBC (0-5) /hpf Urine WBC (0-5) /hpf Ur Squamous Epith Cells (0-4) /hpf Urine Bacteria (None) /hpf Urine Mucus (None) /hpf Disposition Clinical Impression: Abdominal pain Disposition: HOME SELF-CARE Condition: Stable Instructions (If sedation given, give patient instructions): Abdominal Pain (ED) Additional Instructions: Please follow-up with primary care physician in the next couple days for recheck. Please also follow-up with gastroenterology, consider endoscopy. Return for increased pain, fever or vomiting, worsening or change in symptoms or other concerns. Restriction has been sent to [facility] [facility] Prescriptions: Dicyclomine [Bentyl] 20 mg PO QID PRN #20 tablet PRN Reason: Pain Is patient prescribed a controlled substance at d/c from ED?: No Referrals: Jake Felton MD [Primary Care Provider] - 1-2 days Esau Galvez MD [STAFF PHYSICIAN] - 1-2 days Time of Disposition: 21:16
[2020-08-08 17:56] LABS: Basophils # (A) 0.2 k/uL (0-0.2); Basophils % (A) 1 %; Eosinophils # (A) 0.2 k/uL (0-0.7); Eosinophils % (A) 2 %; HCT 44.8 % (34.0-46.0); HGB 15.1 gm/dL (11.4-16.0); Lymphocytes # (A) 1.5 k/uL (1.0-4.8); Lymphocytes % (A) 13 %; MCH 30.6 pg (25.0-35.0); MCHC 33.6 g/dL (31.0-37.0); Mean Platelet Volume 7.5; Monocytes # (A) 0.8 k/uL (0-1.0); Monocytes % (A) 7 %; Neutrophils # (A) 8.7 k/uL (1.3-7.7); Neutrophils % (A) 75 %; Platelet Count 449 k/uL (150-450); RBC 4.93 m/uL (3.80-5.40); RDW 11.7 % (11.5-15.5); WBC 11.6 k/uL (3.8-10.6)
[2020-08-08 18:01] LABS: Appearance,Urine Cloudy (Clear); Bacteria,Urine Few /hpf; Bilirubin,Urine Negative (Negative); Blood,Urine Negative (Negative); Color,Urine Yellow; Glucose,Urine (UA) Negative (Negative); Ketones,Urine Negative (Negative); Leukocyte Esterase,Urine Trace (Negative); Mucus,Urine Occasional /hpf; Nitrite,Urine Negative (Negative); Protein,Urine Trace (Negative); RBC,Urine 4 /hpf (0-5); Specific Gravity,Urine 1.027 (1.001-1.035); Squamous Epithelial Cell,Urine 9 /hpf (0-4); WBC,Urine 4 /hpf (0-5)
[2020-08-08 18:05] LABS: Partial Thromboplastin Time 24.7 sec (22.0-30.0)
[2020-08-08 18:06] LABS: Albumin 4.4 g/dL (3.5-5.0); Calcium 9.8 mg/dL (8.4-10.2); Potassium 4.3 mmol/L (3.5-5.1); Total Bilirubin 0.6 mg/dL (0.2-1.3); Total Protein 7.7 g/dL (6.3-8.2)
--- NOTE | 2020-08-08 18:43 | CT ---
EXAMINATION TYPE: CT abdomen pelvis w con DATE OF EXAM: 08/08/2020 COMPARISON: 12/08/2018 HISTORY: Upper Abdominal pain with nausea CT DLP: 2011 mGycm Automated exposure control for dose reduction was used. CONTRAST: Performed with IV Contrast, patient injected with 100 mL of Isovue 300. Lung bases are clear. There is no pleural effusion. Heart size is normal. There is no pericardial eff usion. There is small hiatal hernia. Liver spleen stomach pancreas appear normal. There are clips fro m cholecystectomy. The bile ducts are not dilated. There is no adrenal mass. Kidneys have normal size. There is some cortical thinning medial right kidn ey. Ureters are not dilated. Delayed images show normal renal excretion. Bladder distends smoothly. There is no inguinal hernia. There is no free fluid in the pelvis. Appendix is not seen. There is no sign of thickened appendix. There is no mesenteric edema. There is no ascites or free air. There is no bowel obstruction. The lumbar vertebra have normal alignment. Posterior elements are intact. Disc spaces are fairly norm al. There is no compression fracture. The bony pelvis is intact. Hip joints are intact. IMPRESSION: Small hiatal hernia unchanged. No sign of acute abdomen and pelvis. Cortical thinning upper right kid vivian consistent with atrophy or scarring. Unchanged.
[2020-08-08 19:28] VITALS: TEMP 98
[2020-08-08] MEDS ORDERED: HYDROmorphone 1 MG/ML 1 ML SYRINGE IVP STA (19:28)
[2020-08-08 20:24] VITALS: RESP 18
[2020-08-08 21:05] VITALS: BP 153/86; PULSE 89
== END 2020-08-08 21:40 | disposition home or self-care (01) ==
LOC: EC 16:43
DX: R10.9 Unspecified abdominal pain (principal); Z87.891 Personal history of nicotine dependence; R11.0 Nausea; R19.7 Diarrhea, unspecified; Z88.6 Allergy status to analgesic agent; Z88.5 Allergy status to narcotic agent; K21.9 Gastro-esophageal reflux disease without esophagitis; E07.9 Disorder of thyroid, unspecified; K58.0 Irritable bowel syndrome with diarrhea; Z79.890 Hormone replacement therapy; Z79.899 Other long term (current) drug therapy; Z90.49 Acquired absence of other specified parts of digestive tract; Z98.890 Other specified postprocedural states
CPT/HCPCS: 36415; 93005; 80053; 82150; 83690; 85025; 85610; 85730; 81001; 74177; 99284; 96374; 96375 ×2; 96372; 96361 ×4; J0500; J2405; J1170; C9113; Q9967

== ENCOUNTER → 2020-08-18 | Outpatient (CLI) | payer OTHER ==
[2020-08-18 11:29] LABS: Basophils # (A) 0.1 k/uL (0-0.2); Basophils % (A) 1 %; Eosinophils # (A) 0.2 k/uL (0-0.7); Eosinophils % (A) 1 %; HCT 42.3 % (34.0-46.0); HGB 14.4 gm/dL (11.4-16.0); Lymphocytes # (A) 2.2 k/uL (1.0-4.8); Lymphocytes % (A) 18 %; MCH 31.2 pg (25.0-35.0); MCV 91.6 fL (80.0-100.0); Mean Platelet Volume 7.5; Monocytes # (A) 0.5 k/uL (0-1.0); Monocytes % (A) 4 %; Neutrophils % (A) 73 %; Platelet Count 457 k/uL (150-450); RBC 4.61 m/uL (3.80-5.40); RDW 12.2 % (11.5-15.5); WBC 12.4 k/uL (3.8-10.6)
[2020-08-18 16:26] LABS: Albumin 4.1 g/dL (3.80-4.90); Albumin/Globulin Ratio 1.52 (1.60-3.17); Anion Gap 8.4 mmol/L (4.00-12.00); BUN/Creat Ratio 17.78 Ratio (12.00-20.00); Calcium 9.3 mg/dL (8.7-10.3); Carbon Dioxide 26.6 mmol/L (21.6-31.8); Globulin 2.7 g/dL (1.6-3.3); Potassium 4.7 mmol/L (3.5-5.5); Total Bilirubin 0.5 mg/dL (0.3-1.2); Total Protein 6.8 g/dL (6.2-8.2)
[2020-08-18 16:37] LABS: T4, Free (Free Thyroxine) 1.5 ng/dL (0.80-1.80)
== END | disposition home or self-care (01) ==
LOC: LABWHC1 09:22
PROVIDERS: ATTEND Internal Medicine Critical Care Medicine
DX: E06.3 Autoimmune thyroiditis (principal); E55.9 Vitamin D deficiency, unspecified
CPT/HCPCS: 36415; 80053; 82306; 84439; 84443; 85025

== ENCOUNTER 2020-12-13 14:34 | Emergency (ER) | payer OTHER ==
[2020-12-13] MEDS ORDERED: ONDANSETRON ODT 4 MG TAB PO STA (15:10)
[2020-12-13] MEDS ORDERED: MORPHINE SULFATE 4 MG/ML SYRINGE IM STA (15:10)
--- NOTE | 2020-12-13 15:59 | XR ---
EXAMINATION TYPE: XR shoulder complete LT DATE OF EXAM: 12/13/2020 COMPARISON: NONE HISTORY: Pain TECHNIQUE: Shoulder examined in 3 views FINDINGS: The humeral head articulates with the glenoid. The acromio-clavicular junction is normal. There appears to be avulsion which is nondisplaced of the greater tuberosity. Clinical correlation re commended. A follow up study can be performed 7-10 days from acute trauma for continued pain. IMPRESSION: 1. Suspected nondisplaced avulsion of the greater tuberosity left shoulder.
[2020-12-13 16:29] VITALS: RESP 16; TEMP 97.6
[2020-12-13] MEDS ORDERED: ACET/COD 300 MG/30 MG STARTER PACK 6 TAB BTL PO STA (16:32)
[2020-12-13 17:01] LABS: Glucose,Whole Blood 150 mg/dL (75-99)
--- NOTE | 2020-12-13 17:02 | ED ---
General Adult HPI - General Chief complaint: Extremity Injury, Upper Stated complaint: Fall-Left Shoulder Injury Time Seen by Provider: 12/13/20 14:41 Source: patient Mode of arrival: wheelchair Limitations: no limitations - History of Present Illness Initial comments: 60-year-old female with a past medical history of GERD, thyroid disorder presents to the emergency room for a chief complaint of left shoulder pain. Patient states that she fell today injuring her left arm. Patient states she just tripped and fell on her outstretched arm. States she felt a crack in her left shoulder. Patient denies hitting her head. She does not take blood thinners. She did not have a loss of consciousness. Patient denies any difficulty moving the fingers.Patient has no other complaints at this time including shortness of breath, chest pain, abdominal pain, nausea or vomiting, headache, or visual changes. - Related Data Home Medications Medication Instructions Recorded Confirmed Levothyroxine Sodium [Synthroid] 100 mcg PO DAILY 11/01/15 12/13/20 Omeprazole/Sodium Bicarbonate 1 cap PO DAILY 11/01/15 12/13/20 [Zegerid 20 mg Capsule] Ergocalciferol (Vitamin D2) 50,000 unit PO FR 12/08/18 12/13/20 [Vitamin D2] Fluticasone Nasal [place] [Flonase 2 spray EA NOSTRIL DAILY 12/08/18 12/13/20 Nasal [place]] Montelukast [Singulair] 10 mg PO DAILY 05/06/19 12/13/20 Dicyclomine [Bentyl] 20 mg PO QID PRN 12/13/20 12/13/20 Previous Rx's Medication Instructions Recorded HYDROcodone/APAP 5-325MG [[place] 1 tab PO Q6HR PRN #10 tab 12/13/20 5-325] Allergies Allergy/AdvReac Type Severity Reaction Status Date / Time aspirin Allergy Rash/Hives Verified 12/13/20 16:25 NSAIDS (Non-Steroidal Allergy Rash/Hives Verified 12/13/20 16:25 Anti-Inflamma hydromorphone [From Dilaudid] AdvReac Unknown Verified 12/13/20 16:25 Review of Systems ROS Statement: Those systems with pertinent positive or pertinent negative responses have been documented in the HPI. ROS Other: All systems not noted in ROS Statement are negative. Past Medical History Past Medical History: GERD/Reflux, Thyroid Disorder Additional Past Medical History / Comment(s): sm hiatal hernia, IBS, History of Any Multi-Drug Resistant Organisms: None Reported Past Surgical History: Appendectomy, Cholecystectomy, Hysterectomy, Tonsillectomy Additional Past Surgical History / Comment(s): Rotator cuff right arm Past Anesthesia/Blood Transfusion Reactions: Motion Sickness, Postoperative Nausea & Vomiting (PONV) Past Psychological History: Depression Smoking Status: Former smoker Past Alcohol Use History: None Reported Past Drug Use History: None Reported - Past Family History Mother Family Medical History: Cancer Father Family Medical History: Cancer General Exam Limitations: no limitations General appearance: alert, in no apparent distress Head exam: Present: atraumatic Eye exam: Present: normal appearance, PERRL, EOMI. Absent: scleral icterus ENT exam: Present: normal exam, mucous membranes moist Neck exam: Present: normal inspection, full ROM. Absent: tenderness Respiratory exam: Present: normal lung sounds bilaterally. Absent: respiratory distress Cardiovascular Exam: Present: regular rate, normal rhythm, normal heart sounds GI/Abdominal exam: Present: soft, normal bowel sounds. Absent: distended, tenderness Extremities exam: Present: tenderness (Tenderness to proximal humerus near shoulder joint.), normal capillary refill (Capillary refill less than 2 seconds, radial pulse 2+ in the left upper extremity.), other (Sensation intact left upper exam, agricultural service technician strength 5 out of 5.). Absent: full ROM (Patient has pain with movement of the left shoulder, currently holding it against body. Full range motion of the elbow hand and wrist.), pedal edema, joint swelling, calf tenderness Neurological exam: Present: alert Course Vital Signs 12/13/20 12/13/20 12/13/20 14:35 16:28 17:19 Temperature 98.0 F 97.6 F Pulse Rate 68 52 L 52 L Respiratory 18 16 16 Rate Blood Pressure 166/101 110/62 105/65 O2 Sat by Pulse 100 99 99 Oximetry 12/13/20 18:19 Temperature 97.6 F Pulse Rate 73 Respiratory 16 Rate Blood Pressure 116/73 O2 Sat by Pulse 99 Oximetry - Reevaluation(s) Reevaluation #1: 12/13/20 18:22 Patient requesting [facility] referral as she has arty had established care with them. Medical Decision Making - Medical Decision Making HPI physical exam is documented. Neurovascular status intact left upper extremity. X-ray was obtained. There is a suspected nondisplaced avulsion of the greater tuberosity of the left shoulder. Patient was placed in a sling and given Tylenol 3 for home. Will follow up with orthopedics. Will return here for any worsening symptoms. Patient did have a reaction to the morphine. She felt very nauseous and lightheaded. This did resolve. Patient requesting [place] for home as this has been manageable in the past - Lab Data Lab Results 12/13/20 Range/Units 16:59 POC Glucose (mg/dL) 150 H (75-99) mg/dL POC Glu Group Burner Machine ID Arianne Dill Disposition Clinical Impression: Fracture of greater tuberosity of humerus Disposition: HOME SELF-CARE Condition: Good Instructions (If sedation given, give patient instructions): Arm Fracture in Adults (ED) Additional Instructions: Please take [place] for pain. Follow-up with your doctor in one to 2 days. Return to the emergency room for any worsening symptoms. Prescriptions: HYDROcodone/APAP 5-325MG [[place] 5-325] 1 tab PO Q6HR PRN #10 tab PRN Reason: Pain Is patient prescribed a controlled substance at d/c from ED?: Yes When asked, does pt state using other controlled substances?: No If prescribed controlled substance>3 days was MAPS reviewed?: Prescribed <3 Days If opioid is for acute pain is fill amount 7 days or less?: Yes If Rx opioid, was Start Talking consent form obtained?: Yes Referrals: Jake Felton MD [Primary Care Provider] - 1-2 days Rajeev Bartholomew DO [Family Provider] - 1-2 days Time of Disposition: 16:31
[2020-12-13] MEDS ORDERED: ONDANSETRON 4 MG/2 ML VIAL IM STA (17:30)
[2020-12-13 18:48] VITALS: BP 110/72; PULSE 67
== END 2020-12-13 18:48 | disposition home or self-care (01) ==
LOC: EC 14:34
DX: S42.252A Displaced fracture of greater tuberosity of left humerus, initial encounter for closed fracture (principal); T40.2X5A Adverse effect of other opioids, initial encounter; R11.0 Nausea; R42 Dizziness and giddiness; F32.9 Major depressive disorder, single episode, unspecified; K21.9 Gastro-esophageal reflux disease without esophagitis; K58.9 Irritable bowel syndrome, unspecified; E07.9 Disorder of thyroid, unspecified; Z79.890 Hormone replacement therapy; Z79.899 Other long term (current) drug therapy; Z88.6 Allergy status to analgesic agent; Z88.5 Allergy status to narcotic agent; Z87.891 Personal history of nicotine dependence; W01.0XXA Fall on same level from slipping, tripping and stumbling without subsequent striking against object, initial encounter
CPT/HCPCS: 96372 ×2; 99284; 36415; 73030; J2270; J2405

== ENCOUNTER → 2021-02-12 | Outpatient (CLI) | payer OTHER ==
--- NOTE | 2021-02-12 22:24 | MR ---
EXAMINATION TYPE: MR shoulder LT wo con DATE OF EXAM: 02/12/2021 COMPARISON: Radiographs 02/07/2021. HISTORY: Left shoulder pain, S/P fall TECHNIQUE: Multiplanar, multisequence imaging of the left shoulder is performed without contrast. FINDINGS: The study is degraded by motion artifact. Rotator Cuff: There is moderate to high grade partial-thickness tear of the supraspinatus tendon ante rior fibers at the footprint. There is moderate tendinosis of the subscapularis tendon with suggestio n of partial thickness tear of the cranial fibers. The subscapularis, infraspinatus and teres minor t endons are grossly intact. Mild atrophy of the supraspinatus and subscapularis muscles. No significan t muscular edema. Acromioclavicular Joint: Mild to moderate osteoarthritis. Glenohumeral Joint: Moderate osteoarthritis. Labrum: Diminutive size and irregularity of the glenoid labrum, suggestive of chronic tear. Biceps Tendon: The long head of biceps is in normal location within bicipital groove. Bone marrow signal: Mild impacted fracture of the humerus surgical neck with associated moderate pulm onary edema. Other: No additional significant abnormality is appreciated. IMPRESSION: Subacute impacted fracture of the left humeral surgical neck. Moderate to high-grade partial thickness tear of the supraspinatus tendon anterior fibers. Moderate grade partial-thickness tear of the subscapularis tendon cranial fibers. Associated mild atr ophy.
== END | disposition home or self-care (01) ==
LOC: RADMRIMAIN 19:16
PROVIDERS: ATTEND Orthopaedic Surgery
DX: M75.112 Incomplete rotator cuff tear or rupture of left shoulder, not specified as traumatic (principal)

== ENCOUNTER → 2021-04-06 | Outpatient (CLI) | payer OTHER ==
[2021-04-06 12:46] LABS: Basophils # (A) 0.1 k/uL (0-0.2); Basophils % (A) 2 %; Eosinophils # (A) 0.2 k/uL (0-0.7); Eosinophils % (A) 3 %; HCT 44.5 % (34.0-46.0); HGB 14.8 gm/dL (11.4-16.0); Lymphocytes % (A) 28 %; MCH 30.9 pg (25.0-35.0); MCHC 33.2 g/dL (31.0-37.0); MCV 93.2 fL (80.0-100.0); Mean Platelet Volume 7.5; Monocytes # (A) 0.4 k/uL (0-1.0); Monocytes % (A) 6 %; Neutrophils # (A) 4.3 k/uL (1.3-7.7); Neutrophils % (A) 60 %; Platelet Count 406 k/uL (150-450); RBC 4.78 m/uL (3.80-5.40); RDW 12.7 % (11.5-15.5); WBC 7.3 k/uL (3.8-10.6)
[2021-04-06 12:57] LABS: Potassium 4.6 mmol/L (3.5-5.1)
== END | disposition home or self-care (01) ==
LOC: LABPAT 12:08
PROVIDERS: ATTEND Orthopaedic Surgery
DX: Z01.812 Encounter for preprocedural laboratory examination (principal); M75.42 Impingement syndrome of left shoulder
CPT/HCPCS: 80051; 85025

== ENCOUNTER 2021-04-12 05:55 | Day surgery (SDC) | payer OTHER ==
[2021-04-09 09:28] VITALS: BMI 43.0
--- NOTE | 2021-04-11 17:33 | HP ---
HISTORY AND PHYSICAL DATE OF SURGERY: 04/12/2021 Latricia Sevilla is a 60-year-old patient seen with progressive left shoulder pain. We discussed options for treatment. She elected to proceed with arthroscopy. Consent was obtained. PAST MEDICAL HISTORY: Hypothyroidism. PAST SURGICAL HISTORY: Cholecystectomy, hysterectomy. DAILY MEDICATIONS: Synthroid, Singulair. ALLERGIES: NSAIDS. SOCIAL HISTORY: She denies tobacco use. PHYSICAL EVALUATION OF THE LEFT SHOULDER: Flexion is 90, abduction 75. External rotation is 30 with pain and weakness. Tenderness along the anterolateral acromion and rotator cuff insertion site. Impingement is positive at 90. Cross-body adduction sign is negative. Drop-arm sign positive. Distal neurovascular exam intact. RADIOGRAPHS: Radiographs of the left shoulder revealed a healed tuberosity fracture. Left shoulder MRI revealed rotator cuff tear as well as a healing tuberosity fracture. IMPRESSION: 1. Left shoulder impingement with rotator cuff tear. 2. History of left shoulder tuberosity fracture. 3. Hypothyroidism. PLAN: Left shoulder arthroscopy with subacromial decompression, arthroscopic rotator cuff repair and debridement. MMODL / IJN: [id number] /
[~2021-04-12 05:55] MED LIST changes: -DEXAMETHASONE SOD PHOSPHATE 10 MG/ML 1 ML VIAL IV ONE; +DEXAMETHASONE SOD PHOSPHATE 4 MG/ML 1 ML VIAL IV ONE; +LIDOCAINE 1% (10MG/ML) FOR IV START INTRADERMA PRN; -LIDOCAINE 1% 20 ML VIAL (10MG/ML) FOR IV START INTRADERMA PRN; -SCOPOLAMINE 1.5MG/72HR PATCH TRANSDERM ONE; -ceFAZolin IN SWFI 2 GM/20 ML SYRINGE IVP ONE
[2021-04-12 06:31] VITALS: RESP 16; TEMP 97.8
[2021-04-12] MEDS ORDERED: SCOPOLAMINE 1.5MG/72HR PATCH TRANSDERM ONE (07:02)
[2021-04-12] MEDS ORDERED: ePHEDrine SULFATE/0.9% NACL/PF 50 MG/5 ML SYRINGE IV ONE (07:24)
[2021-04-12] MEDS ORDERED: LIDOCAINE 1% INJ 10MG/ML (20 ML MDV) ONE (07:24)
[2021-04-12] MEDS ORDERED: MIDAZOLAM 2 MG/2 ML VIAL ONE (07:24)
[2021-04-12] MEDS ORDERED: ROPIVACAINE 5 MG/ML 30 ML VIAL ONE (07:24)
[2021-04-12] MEDS ORDERED: PROPOFOL 10 MG/ML 20 ML VIAL IV ONE (07:24)
[2021-04-12] MEDS ORDERED: SUCCINYLCHOLINE CHLORIDE 100 MG/5 ML SYR IV ONE (07:24)
--- NOTE | 2021-04-12 09:01 | P.OP ---
Date of Procedure: 04/12/21 Preoperative Diagnosis: Left shoulder impingement Postoperative Diagnosis: 1. Left shoulder rotator cuff tear 2. Left shoulder impingement 3. Left shoulder acromioclavicular joint osteoarthritis 4. Left shoulder partial long head biceps tendon tear 5. Left shoulder superficial labral tear Procedure(s) Performed: 1. Left shoulder arthroscopic rotator cuff repair 2. Left shoulder arthroscopic subacromial decompression 3. Left shoulder arthroscopic Inés procedure 4. Left shoulder arthroscopic biceps tenotomy 5. Left shoulder arthroscopic debridement labral tear Implants: 15.5 Arthrex swivel lock anchor Anesthesia: GETA, regional (Interscalene block) Surgeon: Rajeev Bartholomew Steam Flattener #1: Justin Graham Estimated Blood Loss (ml): 8 Pathology: none sent Condition: stable Disposition: PACU Indications for Procedure: 60-year-old patient seen with progressive left shoulder pain. After treatment options were discussed, she elected to proceed with arthroscopy. Operative Findings: See description of procedure Description of Procedure: Patient underwent an interscalene block by department of anesthesia. The patient was then taken to the operative suite. The patient underwent a general anesthetic by the department of anesthesia. The patient was placed into a lateral position and secured. There was appropriate padding of the bony prominence. Left shoulder was then prepped and draped in normal sterile orthopedic fashion. We placed the extremity in 10 pounds of longitudinal traction. A posterior incision was now made for a posterior working portal site. The trocar and cannula were inserted into the glenohumeral joint. Arthroscopy was initiated. Spinal needle was now inserted anteriorly, to ascertain the anterior working portal site. An incision was now made in that area, a trocar was inserted followed by a probe. There was some superficial tearing of the superior and anterior labrum. There were grade 1 chondromalacia changes of the humeral head. There was hyperemia and partial tearing of the long head biceps tendon. I performed a arthroscopic biceps tenotomy. I debrided the superficial labral tear getting down to stable labral tissue. The residual labrum was probed and found be stable. Instruments now removed from glenohumeral joint. Utilizing the posterior working portal site, the trocar and cannula were inserted into the subacromial space. Arthroscopy initiated. I made an incision 2 fingerbreadths lateral to the acromion. I introduced my trocar followed by my ArthroCare ablator. I now began ablating thick subacromial bursal tissue, which exposed the undersurface of the anterior acromion. There was diminished subacromial space. There was a very prominent anterior acromion. A motorized bur was introduced and a subacromial decompression was performed. I also excised some osteophytes off the inferior aspect of the distal clavicle. The AC joint was visualized and noted to be fairly arthritic. The motorized bur was introduced in the anterior portal site and a Inés procedure was performed without difficulty, decompressing the AC joint nicely. I turned my attention to the rotator cuff. There was a 1.5 cm rotator cuff tear. I debrided the margins getting down to stable tendon tissue. I introduced my motorized bur and abraded the footprint area, getting some petechial bleeding. I now with the assistance of Justin RAMIREZ passed 2 everted mattress sutures utilizing Arthrex fiber tape through good bites of rotator cuff tendon. I now punched a hole in the footprint area for insertion of an anchor. I now passed all 4 limbs of suture through the eyelet of a 5.5 Arthrex swivel lock anchor. I placed the eyelet into the pre-punch hole. I held that in position while Justin RAMIREZ tension all the sutures and deployed the anchor with good fixation noted. All residual suture limbs were now clipped. We had good compression of the tendon along the entire footprint. Instruments now removed from the portal sites. All portal sites were approximated with nylon suture. Sterile dressings were applied followed by a shoulder sling. Justin RAMIREZ assisted in this complex case. The patient was awakened, transferred to a bed, and taken to recovery in stable condition.
[2021-04-12 11:01] VITALS: BP 108/72; PULSE 68
--- NOTE | 2021-04-13 13:59 | P.ANPRN ---
Procedure Note - Anesthesia - Nerve Block Performed Left Interscalene Single Time Out Performed: Yes ([id number]) Date of Procedure: 04/12/21 Procedure Start Time: 06:47 Procedure Stop Time: 06:51 Location of Patient: PreOp Indication: Acute Post-Operative Pain, Requested by Surgeon Specifically requested for management of pain by DrHeidy: Rajeev Bartholomew Sedation Type: Sedate with meaningful contact maintained Preparation: Sterile Prep Position: Supine Catheter: None Needle Types: Pajunk Needle Gauge: 21 Ultrasound used to visualize needle placement: Yes Ultrasound used to observe medication spread: Yes Injectate: 0.5% Ropivacaine (see comment for volume) (30cc) Blood Aspirated: No Pain Paresthesia on Injection Noted: No Resistance on Injection: Normal Image Stored and Saved: Yes Events: Uneventful and Well Tolerated
== END 2021-04-12 11:24 | disposition home or self-care (01) ==
LOC: OR 05:55
PROVIDERS: ATTEND Orthopaedic Surgery
DX: M75.102 Unspecified rotator cuff tear or rupture of left shoulder, not specified as traumatic (principal); M25.812 Other specified joint disorders, left shoulder; M19.012 Primary osteoarthritis, left shoulder; S46.112A Strain of muscle, fascia and tendon of long head of biceps, left arm, initial encounter; S43.432A Superior glenoid labrum lesion of left shoulder, initial encounter; X58.XXXA Exposure to other specified factors, initial encounter; M25.712 Osteophyte, left shoulder; E03.9 Hypothyroidism, unspecified; Z87.81 Personal history of (healed) traumatic fracture; K21.9 Gastro-esophageal reflux disease without esophagitis; Z79.890 Hormone replacement therapy; Z79.899 Other long term (current) drug therapy; Z88.6 Allergy status to analgesic agent; Z88.5 Allergy status to narcotic agent; Z88.8 Allergy status to other drugs, medicaments and biological substances; M94.212 Chondromalacia, left shoulder
CPT/HCPCS: 64415; 76942; 29826; 29827; 29824; C1713 ×2; J2250; J0690; J2405; J2001; J2795; J0330; J2704; J1790

== ENCOUNTER 2021-04-15 01:33 | Emergency (ER) | payer OTHER ==
--- NOTE | 2021-04-15 02:02 | ED ---
Extremity Problem HPI - General Chief complaint: Extremity Problem,Nontraumatic Stated complaint: RT leg swelling/numbness Time Seen by Provider: 04/15/21 01:44 Source: patient, RN notes reviewed Mode of arrival: wheelchair Limitations: no limitations - History of Present Illness Initial comments: 60-year-old white female presents to the emergency room with her complaining of right lower extremity swelling since 10:00 tonight. Patient states that the pain feels like a tightness and worse in the calf. There is positive distal pedal pulses. Patient states that she had left rotator cuff surgery with Dr. Kilpatrick on and no complications. Patient denies shortness of breath or cough. Patient states she took off her compression s tockings and her daughter who is a nurse told her that she might have a blood clot. Patient has a history of IBS and hiatal hernia. Patient denies smoking or alcohol use. Patient states took her pain medications at 2215 this evening. MD Complaint: extremity swelling (Right lower extremity) -: hour(s) (4) Location: right, lower extremity History of Same: No Radiation: none Severity scale (1-10): 1 Quality: other (Tight and tingling) Consistency: constant Improves with: nothing Worsens with: palpation Associated Symptoms: denies other symptoms - Related Data Home Medications Medication Instructions Recorded Confirmed Levothyroxine Sodium [Synthroid] 100 mcg PO DAILY 11/01/15 04/12/21 Ergocalciferol (Vitamin D2) 50,000 unit PO MO 12/08/18 04/12/21 [Vitamin D2] Fluticasone Nasal [place] [Flonase 2 spray EA NOSTRIL BID PRN 12/08/18 04/12/21 Nasal [place]] Montelukast [Singulair] 10 mg PO HS 05/06/19 04/12/21 Dicyclomine [Bentyl] 20 mg PO QID PRN 12/13/20 04/12/21 Acetaminophen [Tylenol Extra 1,000 mg PO DIRECTED PRN 04/09/21 04/12/21 Strength] Omeprazole/Sodium Bicarbonate 1 each PO BID PRN 04/09/21 04/12/21 [Zegerid 20 mg Capsule] Previous Rx's Medication Instructions Recorded Ondansetron [Zofran ODT] 4 mg PO Q8HR PRN #15 tab 12/13/20 HYDROcodone/APAP 7.5-325MG [[place] 1 each PO Q6HR PRN #24 tab 04/12/21 7.5] Allergies Allergy/AdvReac Type Severity Reaction Status Date / Time aspirin Allergy Rash/Hives Verified 04/15/21 01:38 morphine Allergy Blood Verified 04/15/21 01:38 pressure and heart rate dropped after injection NSAIDS (Non-Steroidal Allergy Rash/Hives, Verified 04/15/21 01:38 Anti-Inflamma facial swelling and redness hydromorphone [From Dilaudid] AdvReac made pt Verified 04/15/21 01:38 anxious, scared, felt like heart racing, dizziness. steroids Allergy elevated Uncoded 04/15/21 01:38 blood sugar Review of Systems ROS Statement: Those systems with pertinent positive or pertinent negative responses have been documented in the HPI. ROS Other: All systems not noted in ROS Statement are negative. Past Medical History Past Medical History: GERD/Reflux, Thyroid Disorder Additional Past Medical History / Comment(s): sm hiatal hernia, IBS, History of Any Multi-Drug Resistant Organisms: None Reported Past Surgical History: Appendectomy, Cholecystectomy, Hysterectomy, Orthopedic Surgery Additional Past Surgical History / Comment(s): Rotator cuff right arm and lt shoulder Past Anesthesia/Blood Transfusion Reactions: Motion Sickness, Postoperative Nausea & Vomiting (PONV) Past Psychological History: Depression Smoking Status: Never smoker Past Alcohol Use History: None Reported Past Drug Use History: None Reported - Past Family History Mother Family Medical History: Cancer Father Family Medical History: Cancer General Exam Limitations: no limitations General appearance: alert, in no apparent distress Head exam: Present: atraumatic, normocephalic, normal inspection Eye exam: Present: normal appearance, PERRL, EOMI. Absent: scleral icterus, conjunctival injection, periorbital swelling ENT exam: Present: normal exam, normal oropharynx, mucous membranes moist Neck exam: Present: normal inspection, full ROM. Absent: tenderness, meningismus, lymphadenopathy, thyromegaly Respiratory exam: Present: normal lung sounds bilaterally. Absent: respiratory distress, wheezes, rales, rhonchi, stridor, chest wall tenderness, accessory muscle use, decreased breath sounds Cardiovascular Exam: Present: regular rate, normal rhythm, normal heart sounds. Absent: systolic murmur, diastolic murmur, rubs, gallop, clicks GI/Abdominal exam: Present: soft, normal bowel sounds. Absent: distended, tenderness, guarding, rebound, rigid Left Shoulder Exam: Present: other (gauze and taped dressing with sling in place) Neurosensory exam: Present: 2-point discrimination Vascular: Present: normal capillary refill, radial pulse. Absent: vascular compromise Right Lower Leg exam: Present: tenderness, swelling, Homans' sign. Absent: laceration, ecchymosis, deformity, crepitus, erythema Ankle exam: Present: tenderness, swelling. Absent: abrasion, laceration, ecchymosis, deformity, crepitus, dislocation, erythema Neurovascular tendon exam: Present: no vascular compromise. Absent: pulse deficit, abnormal cap refill, motor deficit, sensory deficit, tendon deficit, extremity cold to touch, pallor, foot drop Back exam: Present: normal inspection, full ROM. Absent: tenderness, CVA tenderness (R), CVA tenderness (L), muscle spasm, paraspinal tenderness, vertebral tenderness, rash noted Neurological exam: Present: alert, oriented X3, CN II-XII intact Psychiatric exam: Present: normal affect, normal mood Skin exam: Present: warm, dry, intact, normal color. Absent: rash Course Vital Signs 04/15/21 01:35 Temperature 97.5 F L Pulse Rate 89 Respiratory 20 Rate Blood Pressure 164/90 O2 Sat by Pulse 97 Oximetry Medical Decision Making - Medical Decision Making Patient has positive distal pedal pulses on the right. Foot is warm and pink. Patient has minimal discomfort 110 pain. Patient denies any shortness of breath or chest pain. Ultrasound of the right lower extremity reveals no DVT there is no popliteal cyst. This is likely lymphedema. patient will be discharged home with follow-up to primary care doctor in 1 week. Case discussed with Dr. Goldsmith who was agreeable to this plan of care. Disposition Clinical Impression: Lymphedema Disposition: HOME SELF-CARE Condition: Good Instructions (If sedation given, give patient instructions): Lymphedema (ED) Additional Instructions: Elevate leg at home, wear compression stockings, follow-up with primary care doctor in 1 week Is patient prescribed a controlled substance at d/c from ED?: No Referrals: Jake Felton MD [Primary Care Provider] - 1-2 days Time of Disposition: 03:12
[2021-04-15] MEDS ORDERED: ENOXAPARIN 100 MG/ML SYRINGE SQ STA (02:16)
--- NOTE | 2021-04-15 02:55 | US ---
EXAM: US Duplex Right Lower Extremity Veins CLINICAL HISTORY: ITS.REASON US Reason: pain TECHNIQUE: Real-time duplex ultrasound scan of the right lower extremity veins integrating B-mode two-dimensional vascular structure, Doppler spectral analysis, color flow Doppler imaging and compression. COMPARISON: No relevant prior studies available. FINDINGS: Deep veins: No DVT in the visualized common femoral, femoral, proximal deep femoral or popliteal veins. The veins demonstrate normal color flow, are normally compressible, with normal phasic flow and/or augmentation response. Superficial veins: No thrombus in the visualized great saphenous vein. Soft tissues: No popliteal cyst. IMPRESSION: No DVT.
[2021-04-15 03:56] VITALS: BP 161/90; PULSE 86; RESP 18; TEMP 97.7
== END 2021-04-15 03:20 | disposition home or self-care (01) ==
LOC: EC 01:33
DX: I89.0 Lymphedema, not elsewhere classified (principal); F32.9 Major depressive disorder, single episode, unspecified; E07.9 Disorder of thyroid, unspecified; K21.9 Gastro-esophageal reflux disease without esophagitis; Z90.89 Acquired absence of other organs; Z90.49 Acquired absence of other specified parts of digestive tract; Z90.710 Acquired absence of both cervix and uterus
CPT/HCPCS: 99283

== ENCOUNTER → 2022-05-02 | Outpatient (CLI) | payer OTHER ==
--- NOTE | 2022-05-03 10:33 | USB ---
Reason for Exam: Additional evaluation requested from prior study. Additional evaluation requested from abnormal screening. Last mammogram was performed 3 year(s) and 6 month(s) ago. Patient History: Menarche at age 12. First Full-Term at age 22. Left ovary removed at age 42. Right ovary removed at age 42. Hysterectomy at age 42. Postmenopausal. Benign Ultrasound-Guided Cyst Aspiration. Maternal aunt had breast cancer, age 35. Mother had breast cancer, age 45. Risk Values: Domi 5 year model risk: 3.0%. NCI Lifetime model risk: 12.4%. Prior Study Comparison: 03/31/2012 Screening Mammogram, Unknown. 03/28/2017 Screening Mammogram, Unknown. 11/13/2018 Bilateral Diagnostic Mammogram, [facility]. Tissue Density: There are scattered fibroglandular densities. Findings: Analyzed By CAD. Mammogram There is persistent rounded densities within the inner upper left breast. There is an area of increased density identified on the current craniocaudal exaggerated lateral view which is persistent on compression.. Technique: Method: Targeted. Findings: The upper outer quadrant of the left breast, the axilla of the left breast and the retroareolar of the left breast were scanned. There is a hypoechoic oval measuring 0.7 x 0.3 x 0.5 cm 3:00 position 5 cm from the nipple may correspond with the mammographic abnormality. There is a 12:00 hypoechoic area with good through transmission measuring 0.7 x 0.6 x 0.4 cm. This may correlate with the mammogram. Short-term follow-up recommended. Overall Assessment: Probably benign, BI-RAD 3 Assessment: MG diagnostic mammo w CAD DOROTHY - Bilateral: Incomplete: need additional imaging evaluation, BI-RAD 0 - Left. US breast workup limited LT - Left: Probably benign, BI-RAD 3. Management: Diagnostic Mammogram of the left breast in 6 months. Diagnostic Breast Ultrasound of the left breast in 6 months. A clinical breast exam by your physician is recommended on an annual basis and results should be correlated with mammographic findings. Results were given to the patient verbally at the time of exam. Electronically signed and approved by: Garth Frausto D.O. Radiologis
== END | disposition home or self-care (01) ==
LOC: RADMAMWWP 14:20
PROVIDERS: ATTEND Internal Medicine Critical Care Medicine
DX: R92.8 Other abnormal and inconclusive findings on diagnostic imaging of breast (principal); Z78.0 Asymptomatic menopausal state; Z80.3 Family history of malignant neoplasm of breast
CPT/HCPCS: 77066

== ENCOUNTER 2022-08-03 23:14 | Emergency (ER) | payer OTHER ==
[2022-08-03 23:31] VITALS: BP 189/95; PULSE 102; RESP 22; TEMP 98
--- NOTE | 2022-08-04 00:31 | XR ---
EXAMINATION TYPE: XR lumbar spine 2 or 3V DATE OF EXAM: 08/03/2022 COMPARISON: NONE HISTORY: Pain TECHNIQUE: 3 views FINDINGS: There is some subluxation deformity at L4-5 and L5-S1. No acute fracture seen. Sacroiliac j oints are intact. No compression fracture. There is 5% depression of the superior endplate of L3 whic h is likely old. IMPRESSION: There is first degree L4-5 and L5-S1 spondylolisthesis with likely L5 spondylolysis. No a cute fracture seen.
[2022-08-04] MEDS ORDERED: ORPHENADRINE 30 MG/ML 2 ML VIAL IM STA (00:44)
--- NOTE | 2022-08-04 00:46 | ED ---
Back Pain HPI - General Chief Complaint: Back Pain/Injury Stated Complaint: Fall Time Seen by Provider: 08/04/22 00:35 Source: patient, family, RN notes reviewed, old records reviewed Limitations: no limitations - History of Present Illness Initial Comments: 61-year-old female presents ambulatory with complaints of low back pain after falling while dancing tonight. States landed onto her butt and then fell onto her back. She states that she does have history of bulging disks in her lumbar spine. She states she did take Tylenol which has improved her pain to a 5 out of 10. She denies any injury. She did not hit her head. Complaint: back injury, fall -: hour(s) (4) Severity scale (1-10): 8 Quality: other (tight) Consistency: constant Improves With: immobilization Worsens With: movement, walking, other (bending) Context: other (fell while dancing onto buttocks) Associated Symptoms: denies other symptoms Treatments Prior to Arrival: acetaminophen - Related Data Home Medications Medication Instructions Recorded Confirmed Levothyroxine Sodium [Synthroid] 100 mcg PO DAILY 11/01/15 04/12/21 Ergocalciferol (Vitamin D2) 50,000 unit PO MO 12/08/18 04/12/21 [Vitamin D2] Fluticasone Nasal [place] [Flonase 2 spray EA NOSTRIL BID PRN 12/08/18 04/12/21 Nasal [place]] Montelukast [Singulair] 10 mg PO HS 05/06/19 04/12/21 Dicyclomine [Bentyl] 20 mg PO QID PRN 12/13/20 04/12/21 Acetaminophen [Tylenol Extra 1,000 mg PO DIRECTED PRN 04/09/21 04/12/21 Strength] Omeprazole/Sodium Bicarbonate 1 each PO BID PRN 04/09/21 04/12/21 [Zegerid 20 mg Capsule] Previous Rx's Medication Instructions Recorded Ondansetron [Zofran ODT] 4 mg PO Q8HR PRN #15 tab 12/13/20 HYDROcodone/APAP 7.5-325MG [[place] 1 each PO Q6HR PRN #24 tab 04/12/21 7.5] Cyclobenzaprine [Flexeril] 5 mg PO TID PRN #15 tablet 08/04/22 Lidocaine 5% Patch [Lidoderm] 1 patch TOPICAL DAILY 14 Days #14 08/04/22 patch Allergies Allergy/AdvReac Type Severity Reaction Status Date / Time aspirin Allergy Rash/Hives Verified 08/03/22 23:31 morphine Allergy Blood Verified 08/03/22 23:31 pressure and heart rate dropped after injection NSAIDS (Non-Steroidal Allergy Rash/Hives, Verified 08/03/22 23:31 Anti-Inflamma facial swelling and redness hydromorphone [From Dilaudid] AdvReac made pt Verified 08/03/22 23:31 anxious, scared, felt like heart racing, dizziness. steroids Allergy elevated Uncoded 08/03/22 23:31 blood sugar Review of Systems ROS Statement: Those systems with pertinent positive or pertinent negative responses have been documented in the HPI. ROS Other: All systems not noted in ROS Statement are negative. Past Medical History Past Medical History: GERD/Reflux, Thyroid Disorder Additional Past Medical History / Comment(s): sm hiatal hernia, IBS, History of Any Multi-Drug Resistant Organisms: None Reported Past Surgical History: Appendectomy, Cholecystectomy, Hysterectomy, Orthopedic Surgery Additional Past Surgical History / Comment(s): Rotator cuff right arm and lt shoulder Past Anesthesia/Blood Transfusion Reactions: Motion Sickness, Postoperative Nausea & Vomiting (PONV) Past Psychological History: Depression Smoking Status: Never smoker Past Alcohol Use History: None Reported Past Drug Use History: None Reported - Past Family History Mother Family Medical History: Cancer Father Family Medical History: Cancer General Exam Limitations: no limitations General appearance: alert, in no apparent distress Head exam: Present: atraumatic, normocephalic Eye exam: Present: normal appearance. Absent: scleral icterus, conjunctival injection, periorbital swelling ENT exam: Present: mucous membranes moist Neck exam: Present: normal inspection. Absent: tenderness, meningismus Respiratory exam: Absent: respiratory distress, accessory muscle use Cardiovascular Exam: Present: tachycardia Back exam: Present: normal inspection, tenderness (Lumbar sacral spine), muscle spasm, paraspinal tenderness (Lumbar sacral spine). Absent: CVA tenderness (R), CVA tenderness (L), rash noted Expanded Back exam: Absent: saddle anesthesia Neurological exam: Present: alert, oriented X3, normal gait Psychiatric exam: Present: normal affect, normal mood Skin exam: Present: warm, dry, normal color. Absent: cyanosis, diaphoretic, petechiae, pallor Course Vital Signs 08/03/22 23:25 Temperature 98 F Pulse Rate 102 H Respiratory 22 Rate Blood Pressure 189/95 O2 Sat by Pulse 97 Oximetry Medical Decision Making - Medical Decision Making Patient fell onto her coccyx while dancing this evening. She is complaining of low back pain radiating down her thighs. She is ambulatory with no focal neurological deficits. She denies any bowel or bladder incontinence. No saddle anesthesia. X-ray shows first-degree L4 5 and L5-S1 spondylolisthesis with a likely L5 spondylosis. No acute fractures are seen. Patient was given a shot of Decadron Norflex and a Lidoderm patch. She was prescribed Flexeril and Lidoderm patches to be taken in addition to her Tylenol at home. She is agreeable to this plan of care. Case discussed with Dr. Goldsmith Disposition Clinical Impression: Acute low back pain Disposition: HOME SELF-CARE Condition: Good Instructions (If sedation given, give patient instructions): Acute Low Back Pain (ED) Additional Instructions: Continue Tylenol and Lidoderm patches for pain. Follow-up with the primary care doctor next week. You can also use ice or heat for pain relief. Return to the emergency room with any new or concerning symptoms. Prescriptions: Cyclobenzaprine [Flexeril] 5 mg PO TID PRN #15 tablet PRN Reason: Muscle Spasm Lidocaine 5% Patch [Lidoderm] 1 patch TOPICAL DAILY 14 Days #14 patch Is patient prescribed a controlled substance at d/c from ED?: No Referrals: Jake Felton MD [Primary Care Provider] - 1-2 days Time of Disposition: 01:33
[2022-08-04] MEDS ORDERED: LIDOCAINE 5% PATCH TOPICAL STA (01:31)
[2022-08-04] MEDS ORDERED: DEXAMETHASONE SOD PHOSPHATE 10 MG/ML 1 ML VIAL IM STA (01:32)
[2022-08-04] MEDS ORDERED: LIDOCAINE 5% PATCH TOPICAL SCH (09:00)
== END 2022-08-04 01:58 | disposition home or self-care (01) ==
LOC: EC 23:14
DX: M54.50 Low back pain, unspecified (principal); K21.9 Gastro-esophageal reflux disease without esophagitis; E07.9 Disorder of thyroid, unspecified; Z88.6 Allergy status to analgesic agent; Z88.5 Allergy status to narcotic agent; Z88.8 Allergy status to other drugs, medicaments and biological substances; Z79.899 Other long term (current) drug therapy; Z79.890 Hormone replacement therapy; W19.XXXA Unspecified fall, initial encounter; Y93.41 Activity, dancing; Y92.89 Other specified places as the place of occurrence of the external cause
CPT/HCPCS: 72100; 99283; 96372; J1100; J2360

== ENCOUNTER → 2022-08-23 | Outpatient (CLI) | payer OTHER ==
--- NOTE | 2022-08-24 03:42 | MR ---
EXAMINATION TYPE: MR lumbar spine wo con DATE OF EXAM: 08/23/2022 COMPARISON: None HISTORY: Low back pain since 08-03-22 due to fall. Multiplanar multi echo imaging of the lumbar spine performed without contrast. There is normal alignment of the vertebra. There is 20% biconcave compression deformity of L3 vertebr al body. There is abnormal increased signal within the body on the STIR images. There is decreased si gnal on the T1 images. There is horizontal line through the body consistent with an acute fracture li ne. There is no paraspinal mass. The sacroiliac joints are intact. No lumbar disc herniation. No spinal stenosis. The lumbar nerve roots appear normal. The neural yumiko flynn appear well maintained. IMPRESSION: Exam shows evidence of an acute compression fracture of the L3 vertebral body which is a change bassam red to 08/08/2020 CT scan and not clearly present on the plain x-ray of 08/03/2022.
== END | disposition home or self-care (01) ==
LOC: RADMRIMAIN 21:00
PROVIDERS: ATTEND Nurse Practitioner Family
DX: S32.030A Wedge compression fracture of third lumbar vertebra, initial encounter for closed fracture (principal)
CPT/HCPCS: 72148

== ENCOUNTER → 2022-09-10 | Outpatient (CLI) | payer OTHER ==
--- NOTE | 2022-09-11 19:55 | CT ---
EXAMINATION TYPE: CT lumbar spine wo con CT DLP: 1820.4 mGycm, Automated exposure control for dose reduction was used. DATE OF EXAM: 09/10/2022 3:50 PM COMPARISON: MRI lumbar spine 08/23/2022. CLINICAL INDICATION:Female, 62 years old with history of M48.50XA COLLAPSED VERTEBRAE; COLLAPSED VERT EBRAE TECHNIQUE: Multiple axial images were obtained from the midportion of T11 through the sacroiliac annamarie nts. Soft tissue and bone windows in coronal and sagittal planes were obtained and reviewed. FINDINGS: Alignment: There are 5 lumbar type vertebral bodies. There is grade I anterolisthesis of L5 on S1. Bone: No demonstration of vertebral compression fracture of th spinal canal e L3 vertebral body 25% h eight loss is acute on prior MRI and 08/23/2022. Mild position of 2 to 3 mm. Discs: T12-L1: No spinal canal or neural foraminal stenosis is identified. L1-L2: No spinal canal or neural foraminal stenosis is identified. L2-L3: No spinal canal or neural foraminal stenosis is identified. L3-L4: Disc bulging without significant spinal canal or neural foraminal stenosis. L4-L5: Disc bulging without significant spinal canal or neural foraminal stenosis. L5-S1: No spinal canal or neural foraminal stenosis is identified. Other: Right nonobstructing renal calculus measuring 3 mm. IMPRESSION: 2. Stable height loss of L3 vertebral body compression fracture with at least mild spinal canal steno sis.
== END | disposition home or self-care (01) ==
LOC: RADCTMAIN 15:03
PROVIDERS: ATTEND Orthopaedic Surgery
DX: M48.50XA Collapsed vertebra, not elsewhere classified, site unspecified, initial encounter for fracture (principal); M48.061 Spinal stenosis, lumbar region without neurogenic claudication
CPT/HCPCS: 72131

== ENCOUNTER → 2022-09-12 | Outpatient (CLI) | payer OTHER ==
[2022-09-12 18:56] LABS: INR 0.99 (0.90-1.11); Prothrombin Time 10.9 sec (9.9-11.9)
[2022-09-12 19:07] LABS: Basophils # (A) 0.08 X 10*3/uL (0.00-0.10); Eosinophils # (A) 0.26 X 10*3/uL (0.04-0.35); Eosinophils % (A) 3.3 %; HCT 44.4 % (37.2-46.3); HGB 14.9 g/dL (12.0-15.0); Immature Grans, Automated 0.1 %; Lymphocytes # (A) 2.26 X 10*3/uL (0.90-5.00); Lymphocytes % (A) 28.8 %; MCH 31.2 pg (27.0-32.0); MCHC 33.6 g/dL (32.0-37.0); MCV 92.9 fL (80.0-97.0); Mean Platelet Volume 10.7 fL (9.5-12.2); Monocytes # (A) 0.74 X 10*3/uL (0.20-1.00); Monocytes % (A) 9.4 %; NRBC Per 100 WBC 0 /100 WBCS (0.0-0.0); Neutrophils # (A) 4.49 X 10*3/uL (1.80-7.70); Neutrophils % (A) 57.4 %; Platelet Count 387 X 10*3/uL (140-440); RBC 4.78 X 10*6/uL (4.10-5.20); RDW 12.3 % (11.5-14.5); WBC 7.84 X 10*3/uL (4.50-10.00)
[2022-09-12 22:24] LABS: African American GFR (CKD) 90.9 (60.0-200.0); Anion Gap 14.9 mmol/L (10.00-18.00); BUN/Creat Ratio 14.63 Ratio (12.00-20.00); Blood Urea Nitrogen 11.7 mg/dL (9.0-27.0); Calcium 9.6 mg/dL (8.7-10.3); Carbon Dioxide 23.1 mmol/L (20.0-27.5); Non-African American GFR(CKD) 78.5 (60.0-200.0); Potassium 4.8 mmol/L (3.5-5.5)
== END | disposition home or self-care (01) ==
LOC: LABPAT 13:30
PROVIDERS: ATTEND Orthopaedic Surgery
DX: Z01.818 Encounter for other preprocedural examination (principal); S32.030A Wedge compression fracture of third lumbar vertebra, initial encounter for closed fracture; X58.XXXA Exposure to other specified factors, initial encounter
CPT/HCPCS: 80048; 85025; 85610; 93005

== ENCOUNTER 2022-09-19 10:50 | Day surgery (SDC) | payer OTHER ==
[2022-09-16 11:50] VITALS: BMI 43.9
[~2022-09-19 10:50] MED LIST changes: +ACETAMINOPHEN TAB 500 MG TAB PO PRN; +GABAPENTIN 300 MG CAP PO PRN; +HYDROmorphone 0.5 MG/0.5 ML SYRINGE IVP PRN; -LIDOCAINE 1% (10MG/ML) FOR IV START INTRADERMA PRN; -MIDAZOLAM 2 MG/2 ML VIAL IV PRN; +ONDANSETRON 4 MG/2 ML VIAL IVP PRN; +TRANEXAMIC ACID IN NACL,ISO-OS 1,000 MG in SALINE 1 100ML.BAG IVPB PRN
[2022-09-19] MEDS: LIDOCAINE 1%-EPI 1:100,000 20 ML VIAL SQ ONE ×2 (12:00→12:05)
[2022-09-19] MEDS ORDERED: IOPAMIDOL M200 10 ML VIAL MISCELLANE ONE ×2 (12:05→12:35)
[2022-09-19] MEDS ORDERED: BUPIVACAINE (PF) 0.5% 30 ML VIAL SQ ONE ×2 (12:05→12:35)
[2022-09-19] MEDS ORDERED: FAMOTIDINE 20 MG/2 ML VIAL IVP ONE (12:11)
[2022-09-19] MEDS ORDERED: SUCCINYLCHOLINE CHLORIDE 200 MG/10 ML VIAL IV ONE (12:31)
[2022-09-19] MEDS ORDERED: fentaNYL (PF) 50 MCG/ML 2 ML AMP ONE (12:31)
[2022-09-19] MEDS ORDERED: LIDOCAINE 2% INJ 20 MG/ML (2 ML VIAL) ONE (12:31)
[2022-09-19] MEDS ORDERED: ROCURONIUM 10 MG/ML (5 ML VIAL) IV ONE (12:31)
[2022-09-19] MEDS ORDERED: MIDAZOLAM 2 MG/2 ML VIAL ONE (12:31)
[2022-09-19] MEDS ORDERED: PROPOFOL 10 MG/ML 20 ML VIAL IV ONE (12:31)
--- NOTE | 2022-09-19 12:42 | P.HPOR ---
History of Present Illness H&P Date: 09/12/22 .D:Date: 09/12/22 : 12:25pm .T:Title: [facility] History and Physical Date of :[birth year] Age: 62 year Height: 5' Weight: 220 lbs BP:128/87 BMI: 42.97 kg/m2 Occupation: Retired VAS: 3 CHIEF COMPLAINT: recheck low back and review lumbar MRI DOI:08/03/2022 DOS: None Duration of current treatment regiment: N/A HISTORY: Xrays No new xrays taken in office Trauma or injury yes Work-Related No Pain description dull, aching. Location posterior Activity Modification yes Hand Dominance right TREATMENTS COMPLETED: 6 weeks of PT completed? Month and Year of last PT date? Current yes How many visits: 1 Did it help: No Physician recommended home exercise completed? Duration of HEP course: None No, cannot complete as exercises exacerbate her symptoms. Medications yes List: Tylenol ES and Flexeril both without relief of her symptoms. Lidoderm patches with mild relief of her symptoms. Alternative interventions Chiropractic: No Massage therapy: No R.I.C.E: yes heat and ice without relief. Brace: No Injections No RFA: No SUBJECTIVE: Ms. Sevilla returns to the office for a recheck of their low back pain. Since the time of the last appointment the patient reports no improvements to her pain. Overall the patient has seen a progressive increase in symptoms since their onset. Ms. Sevilla symptoms are exacerbated with standing, ambulation, and any weightlifting, due to this they notes that it is increasingly difficult for Ms. Sevilla to complete many of their daily tasks. Patient is having severe sleep disturbances as well due to their ongoing pain and associated symptoms. Regarding treatments, the patient has previously trialed all abovementioned treatment modalities without relief of her symptoms. Patient denies trialing any other modalities at this time. Otherwise the patient denies any f/c/sob/cp, no incision concerns, no bladder or bowel retention/incontinence, no perineal numbness/tingling, and ambulates independently. HISTORY: Ms. Sevilla last returned to the office on 08/28/2022 for a recheck of their low back pain and to review her MRI. Since the time of the last appointment the patient reports some mild improvements to her pain Patient reports continued lumbar pain ongoing since 08/03/2022 after a FFS. In addition to their lumbar pain, they do report that it radiates into the bilateral aspects of the groin withoutnumbness and tingling. Overall the patient has seen a progressive increase in symptoms since their onset. Ms. Sevilla symptoms are exacerbated with prolonged standing and ambulation, due to this they notes that it is increasingly difficult for Ms. Sevilla to complete many of their daily tasks. Patient is having severe sleep disturbances as well due to their ongoing pain and associated symptoms. Regarding treatments, the patient has previously trialed all abovementiond treatment modalities without relief of her symptoms. Patient denies trialing any other modalities at this time. Otherwise the patient denies any f/c/sob/cp, no incision concerns, no bladder or bowel retention/incontinence, no perineal numbness/tingling, and ambulates independently. Ms. Sevilla was last seen on 08/12/2022 regarding an evaluation of low back pain. Patient states on 08/03/2022 she was attending a wedding and was out on the dance floor doing the "Twist" when she had a fall. Patient reports low back pain that radiates across back and into bilateral groin area. Patient states her symptoms are exacerbated with prolonged walking, sitting, sitting to standing position or when bending over. Patient reports that her left leg anne. She states she also has stiffness when waking up and when sitting for periods of time. Patient has trialed ice and heat therapy. She denies trialing any other modalities at this time. She is currently taking Tylenol and using lidocaine patches for pain management. Otherwise patient denies any f/c/sob/cp, no bladder or bowel retention/incontinence, no perineal numbness/tingling, and ambulates independently. The patients' past social, medical, family, surgical history, as well as review of systems, have been reviewed. Please refer to the Neurosurgery History and Physical form that has been scanned in to our electronic medical record system. 16 points review of systems completed and as stated in HPI, all other systems r eviewed are negative. Social History: Reviewed, see appropriate section of the chart for details. P3 Social History: Smoking: never a smoker P3 Alcohol: occasional alcohol P3 Family History: Reviewed, see appropriate section of the chart for details. P2 Past Medical History: Reviewed, see appropriate section of the chart for details. [id number] Medications: Rx: Singulair Ref: 0 Rx: Synthroid Ref: 0 Rx: VITAMIN D 1000IU ORAL , Ref: 0 Rx: ZEGRID 20mg ORAL , Ref: 0 Rx: cyclobenzaprine 5 mg tablet Ref: 0 Rx: lidocaine 5 % topical patch Ref: 0 Rx: TylenoL Ref: 0 P1 PHYSICAL EXAMINATION: General: Awake, alert, appropriate for age, in no acute distress. HEENT: No unusual neck masses around region of lateral neck triangle, thyroid, supraclavicular groove Heart: Regular rate and rhythm, normal S1, S2 and no murmur/gallop. Lungs: Clear to auscultation bilaterally with no use of accessory muscles. Extremities: Skin warm and dry without acute lesions, coloration, temperature, skin intact, no tenderness or erythema Integument: Hairy patches: ABSENT Dorsal skin dimples: ABSENT Cafe au lait spots: ABSENT Surgical incisions: NONE Palpation: Please see Pain drawing on Intake sheet for further detail. Midline spinal tenderness: No E6 Cervical Tenderness: No E6 Paralumbar tenderness: No E6 Parathoracic tenderness: No E6 Buttocks tenderness: No E6 Sacroiliac Tenderness: No POSTURAL and MUSCULO-SKELETAL EVALUATION: Coronal Balance: NEUTRAL Recumbent testing: Patient is able to lay flat on back Sagittal Balance: NEUTRAL Shoulder Profile: LEVEL Pelvic Girdle: LEVEL Neck ROM: UNRESTRICTED Lumbar ROM: RESTRICTED Shoulder ROM: Symmetrical Hip ROM: Symmetrical Knee ROM: Symmetrical Hands: Normal appearance, symmetrical Feet: Normal appearance, Symmetrical VASCULAR STATUS : LEFT RIGHT Wrist Pulses INTACT INTACT Pedal Pulses (Dors. pedis & post.tibialis) INTACT INTACT Color NORMAL NORMAL Edema Absent Absent NEUROLOGIC EXAMINATION: Mental Status:Awake and alert, fully oriented, with normal attention, concentration and memory, and fluent, appropriate speech. Cranial Nerves: I: Olfactory not tested. II: Visual acuity normal, no visual field deficit noted with confrontation. III,IV: Normal pupillary reflexes & intact extraocular movements without nystagmus. V,: Intact symmetrical facial sensation. VII: Intact symmetrical facial motor movement VIII: Hearing intact. IX,X: Intact gag, swallow, & normal voice. XI: Sternocleidomastoid, trapezius function intact. XII: Tongue midline with normal movements. L'hermitte's Sign: Negative / absent Spurling'Sign: Absent bilaterally. Cubital percussion test: Absent bilaterally. Flowers-Tinel sign - Carpal region: Absent bilaterally. Straight Leg Raising: Absent bilaterally. Crossed straight leg raise: negative O8 MOTOR EXAM (0-5/5, N/T) UPPER EXTREMITY Shoulder Abduction Biceps Triceps Wrist Extension Hand Intrinsics Rod Pointer Right 5/5 5/5 5/5 5/5 5/5 5/5 Left 5/5 5/5 5/5 5/5 5/5 5/5 LOWER EXTREMITY Hip Flexion Knee Extension Knee Flexion DF PF EHL FHL Right 5/5 5/5 5/5 4+/5 4+/5 4+/5 4+/5 Left 5/5 5/5 5/5 4+/5 4+/5 4+/5 4+/5 REFLEXES(0-4/2, NT)Upper ExtremityLower Extremity Right 2 2 Left 2 2 Pathological Reflexes RIGHT LEFT Flowers's Absent Absent Clonus Absent Absent Babinski Absent Absent # Indicates mechanical impairment Muscle appearance: Symmetrical, without signs of atrophy or dystrophy. Rectal Tone:Deferred Sensory system (0-4, N/T) Test type RU MIK RL LL Joint-Position 2 2 2 2 Vibration 2 2 2 2 Pain & LT sense 2 2 2 2 Dermatomal Deficit: None None None None Gait and Functional Evaluation: Ambulatory aids: Independent Romberg's test: Intact bilaterally Toe heel walk / heel-toe walk intact while maintaining satisfactory balance? No Squatting/straightening w/o assistance to a min of 60 degree knee flexion? No Single leg stance: intact Trendelenburg sign negative bilaterally Hand and finger dexterity intact bilaterally? yes Disdiadochokinesis examination negative bilaterally? yes RADIOGRAPHIC STUDIES: XRay taken on 08/12/22 of Lumbar Spine and Pelvis: moderate multilevel spondylitic change, with preserved alignment. There is a compression deformity of L3, this does look chronic. Grade 1 spondylolisthesis L4-L5, L5-S1. L5 spondylolysis. Multilevel diminished disc height. CT scan from 09/10/2022 of Lumbar Spine without contrast: This demonstrates the acute L3 VCF with 25% compression in superior endplate. The fracture translates posteriorly, but does not involve the posterior elements and there is no retropulsion. There is segmental kyphosis due to the fracture of approx 5 deg. No other fractures noted. There is Grade I spondylolisthesis noted at L5-S1 incidentally and is partially reduced on supine film. No other lesions or fractures. MRI scan from 08/23/2022 of Lumbar Spine: Images Reviewed in office with the patient. L1-2 Mild spondylosis L2-3 Mild spondylosis L3-4 Mild spondylosis L4-5 Grade I spondylolisthesis, stable, mild foraminal stenosis and central stenosis with mild facet overgrowth L5-S1 Grade I, mobile spondylolisthesis partially reduced on this supine film. There is moderate to severe b/l foraminal stenosis with moderate central stenosis. Alignment: PI: NA LL: 48deg Coronal alignment: Maintained Fracture: Acute L3 vertebral compression fracture with superior endplace settling. Compression about 30%. Edema noted on STIR through L3 body showing acute fracture. No extension through posterior elements. No retropulsion. Lesion: None IMPRESSION: It was my pleasure to have seen and examined Latricia. I reviewed the patient's clinical syndrome, physical findings, and imaging studies during the appointment today. It is my impression that the patient has a diagnosis of. 1. Acute L3 VCF, 25% compression 2. L5-S1 grade I spondylolisthesis 3. Mechanical low back pain I outlined the natural course history without intervention and various inter ventional options. PLAN: Based on my findings I suggest the following course of action: - I discussed treatment options with the patient, including operative and non- operative options, and they have elected to proceed with the following surgical procedure: lumbar (L3) Kyphoplasty The indications, risks, benefits, and alternatives to surgery were discussed with the patient at length. Specifically (but not limited to) the risks of infection, stiffness, recurrence of symptoms, need for revision surgery, local numbness, neurovascular injury, and blood clots were discussed. The patient's questions were answered. The decision to proceed was made. Consent will be obtained for the procedure. -Advised patient to continue with supplements, health maintenance, and home exercise programs. Patient expressed understanding and will continue with these modalities. - Ambulate daily - Take medications as directed - Ice and rest for pain and swelling control. Follow- up: 2 weeks post-procedure Patient Education: (Informational booklet, instructions, etc) given at today's appointment: Yes .ED:Patient Education: Y Plan at next visit: review tests and progress Medications Reviewed: YES In our visit today Ms. Sevilla and I have had a chance to go over my understanding of the patient's current condition, the natural course history without intervention and various interventional options. Questions were invited and answered, and the patient wishes to proceed as outlined above. I will be sure to keep you updated afterMs. Sevilla returns here for further follow-up. Thank you again for your referral. Please do not hesitate to contact me if you have any further questions. Signed and authenticated by: Timi Hoyos [facility] [address] [address] This message is confidential, intended only for the named recipient(s) and may contain information that is privileged or exempt from disclosure under applicable law. If you are not the intended recipient(s), you are notified that the dissemination, distribution or copying of this information is strictly prohibited. If you received this message in error, please notify the sender then delete this message. Patient verbalizes understanding of the information discussed. The above note was initiated by Timi Fuchs, physician recording assistant track and field coach for Dr. Timi Maynard. This note has been reviewed by Dr. Maynard, who has made his personal changes and impressions for this document. # SIGNED BY Timi Maynard (GOO)09/13/2022 08:03AM Past Medical History Past Medical History: GERD/Reflux, Thyroid Disorder Additional Past Medical History / Comment(s): Small hiatal hernia, IBS. History of Any Multi-Drug Resistant Organisms: None Reported Past Surgical History: Appendectomy, Cholecystectomy, Hysterectomy, Orthopedic Surgery Additional Past Surgical History / Comment(s): Bilateral rotator cuff repair. Past Anesthesia/Blood Transfusion Reactions: Motion Sickness, Postoperative Nausea & Vomiting (PONV) Past Psychological History: Depression Additional Psychological History / Comment(s): Depression has been much better since taking a Vitamin D Supplement. Smoking Status: Former smoker Past Alcohol Use History: Occasional Additional Past Alcohol Use History / Comment(s): Quit smoking 41 yrs ago. Past Drug Use History: None Reported - Past Family History Mother Family Medical History: Cancer Father Family Medical History: Cancer Medications and Allergies Home Medications Medication Instructions Recorded Confirmed Type Levothyroxine Sodium [Synthroid] 100 mcg PO QAM 11/01/15 09/19/22 History Ergocalciferol (Vitamin D2) 50,000 unit PO MO 12/08/18 09/19/22 History [Vitamin D2] Fluticasone Nasal [place] [Flonase 2 spray EA NOSTRIL BID PRN 12/08/18 09/19/22 History Nasal [place]] Montelukast [Singulair] 10 mg PO HS 05/06/19 09/16/22 History Acetaminophen [Tylenol Extra 1,000 mg PO DIRECTED PRN 04/09/21 09/19/22 History Strength] Omeprazole/Sodium Bicarbonate 1 each PO BID PRN 04/09/21 09/19/22 History [Zegerid 20 mg Capsule] Cyclobenzaprine [Flexeril] 5 mg PO TID PRN #15 tablet 08/04/22 09/16/22 Rx Lidocaine 5% Patch [Lidoderm] 1 patch TOPICAL DAILY 14 Days #14 08/04/22 09/19/22 Rx patch Allergies Allergy/AdvReac Type Severity Reaction Status Date / Time aspirin Allergy Rash/Hives Verified 09/19/22 11:13 morphine Allergy Blood Verified 09/19/22 11:13 pressure and heart rate dropped after injection NSAIDS (Non-Steroidal Allergy Rash/Hives, Verified 09/19/22 11:13 Anti-Inflamma facial swelling and redness hydromorphone [From Dilaudid] AdvReac made pt Verified 09/19/22 11:13 anxious, scared, felt like heart racing, dizziness. Physical Examination Osteopathic Statement: *. No significant issues noted on an osteopathic structural exam other than those noted in the History and Physical/Consult.
--- NOTE | 2022-09-19 13:41 | P.OP ---
Date of Procedure: 09/19/22 Preoperative Diagnosis: 1. L3 VCF, 35% 2. LBP Postoperative Diagnosis: 1. L3 VCF, 35% 2. LBP Procedure(s) Performed: 1. L3 kyphoplasty with biopsy ([id number]) Implants: Cherry cement Anesthesia: GETA Surgeon: Timi Maynard Surgical Scheduler #1: Brittany Fish (was present and assisted in all aspects of the case) Estimated Blood Loss (ml): 5 IV fluids (ml): 200 Urine output (ml): 0 Pathology: other (L3 vertebral body) Condition: stable Disposition: PACU Indications for Procedure: Ms. Sevilla returns for her treatment for low back pain. Since the time of the last appointment the patient reports no improvements to her pain. Overall the patient has seen a progressive increase in symptoms since their onset. Ms. Sevilla symptoms are exacerbated with standing, ambulation, and any weightlifting, due to this they notes that it is increasingly difficult for Ms. Sevilla to complete many of their daily tasks. Patient is having severe sleep disturbances as well due to their ongoing pain and associated symptoms. Regarding treatments, the patient has previously trialed all abovementioned treatment modalities without relief of her symptoms. Patient denies trialing any other modalities at this time. Otherwise the patient denies any f/c/sob/cp, no incision concerns, no bladder or bowel retention/incontinence, no perineal numbness/tingling, and ambulates independently. Description of Procedure: The patient was seen and examined in the preoperative area. All preoperative protocols were followed. Informed consent was obtained risks and benefits of the procedure were discussed at length. Risks including bleeding infection damage to the surrounding tissue and risk of reoperation were discussed with the patient. Risk of anesthesia up to and including was a discussed with the patient. These are outlined in the risk review. They were willing to accept these risks and all of the risks of surgery. The patient was given a weight- based dose of antibiotics in the form of 2 g Ancef. The patient was seen and evaluated by the anesthesia team who deemed them fit for surgery. The site was marked, the patient was willing to proceed with the procedure. The patient was transferred to the operative suite by the Department of anesthesia. They were then drifted off to sleep by the department anesthesia and GETA was performed. The patient tolerated this well. Once confirmation of lines and ventilation the patient was transferred to a [prone James table very carefully]. All bony prominences including wrists, elbows, axilla, chest, hips, and thighs, and feet were padded very well. Special attention was paid to the genitalia and these were padded accordingly. SCDs were placed on bilateral lower extremities and were connected. Arms were well padded and placed [on arm boards up and out in the 90/90 position]. Once in position, again we confirmed good ventilation capabilities and that lines were running appropriately. The patient's lumbar spine was then exposed. 1010s were placed outlining the incision site. Standard alcohol was used to clean the incision site and allowed to dry. C-arm was used to biomark the patient and confirm level for incision which was marked with a skin marker. Operative briefing was performed with all teams and everyone in agreement to proceed. The patient was then prepped and draped in a normal sterile fashion. Timeout was then performed and all parties were in agreement with the procedure to be performed. 18-gauge spinal needle was used to localize the L3 pedicles bilaterally. Local was then used to anesthetize the area and a skin neck was made. Jamshidi's were then passed through the pedicles on L3 bilaterally using biplanar fluoroscopy once the anterior within the vertebral body the drill was used to create a path followed by curette a biopsy needle was then used to biopsy L3 vertebral body bilaterally. We then placed the balloon and inflated it under AP and lateral fluoroscopy which confirmed good placement as well as reduction of the superior endplate. The balloon was then removed bilaterally and we placed cement then bilaterally under pulsed lateral fluoroscopy. Patient was stable throughout this process. Once we had good fill of cement the Jamshidi's removed and final AP and lateral fluoroscopy confirmed good placement of cement as well as good fi ll and reduction of fracture. The wounds were irrigated and then closed with a simple stitch and glue are dressed sterilely with Band-Aids. The patient was transferred back to their hospital bed atraumatically. Patient was then awakened and extubated by the department of anesthesia having tolerated the procedure very well with no complications. They were transferred to the postoperative care unit in stable condition.
[2022-09-19 13:52] VITALS: TEMP 97.1
[2022-09-19] MEDS ORDERED: MEPERIDINE 50 MG/ML SYRINGE IVP ONE ×2 (14:10→14:19)
[2022-09-19 14:31] VITALS: RESP 16
[2022-09-19] MEDS ORDERED: diphenhydrAMINE 50 MG/ML 1 ML VIAL IVP ONE ×2 (15:11→16:00)
[2022-09-19] MEDS ORDERED: diphenhydrAMINE 50 MG/ML 1 ML VIAL ONE ×2 (15:11→16:00)
--- NOTE | 2022-09-19 15:12 | FL ---
EXAMINATION TYPE: FL guidance operating room, XR lumbar spine 2 or 3V DATE OF EXAM: 09/19/2022 FLUOROSCOPY Fluoroscopy time of 1 minute 5 seconds was used during lumbar vertebroplasty. 5 image/s document/s t he procedure.
[2022-09-19 16:10] VITALS: BP 140/85; PULSE 75
== END 2022-09-19 16:51 | disposition home or self-care (01) ==
LOC: OR 10:50
PROVIDERS: ATTEND Orthopaedic Surgery
DX: S32.030A Wedge compression fracture of third lumbar vertebra, initial encounter for closed fracture (principal); G47.9 Sleep disorder, unspecified; M43.16 Spondylolisthesis, lumbar region; M47.816 Spondylosis without myelopathy or radiculopathy, lumbar region; K21.9 Gastro-esophageal reflux disease without esophagitis; E03.9 Hypothyroidism, unspecified; F32.A Depression, unspecified; Z90.49 Acquired absence of other specified parts of digestive tract; Z90.89 Acquired absence of other organs; Z90.710 Acquired absence of both cervix and uterus; Z87.891 Personal history of nicotine dependence; Z86.59 Personal history of other mental and behavioral disorders; Z80.9 Family history of malignant neoplasm, unspecified; Z79.899 Other long term (current) drug therapy; X58.XXXA Exposure to other specified factors, initial encounter
CPT/HCPCS: 86900; 86901; 86850; 88307; 88311; 72100; 22514; C1713; J2250; J0330; J1200; J1100; J2175; J0690; J2405; J3010; J2704; Q9966; J2001

== ENCOUNTER → 2022-10-30 | Outpatient (CLI) | payer OTHER ==
[2022-10-30 13:15] VITALS: BP 139/66; PULSE 84; RESP 18; TEMP 98.6
--- NOTE | 2022-10-30 14:26 | P.PAINPG ---
PQRS Measure Charge Sheet Comment: HISTORY OF PRESENT ILLNESS: 62 yr old female as a referral from Dr Maynard presents today w severe and chronic LBP secondary to spondylosis, DDD and facet arthropathy without myelopathy for evaluation. Pt states pain level is at 7 /10 in intensity, constant, localized in the lower lumbar spine, sore in character w shooting pain towards the BL glutes. Pain is provoked by standing/ walking for periods of 5- 10 min. Pain is alleviated by medications (Tylenol excess, Flexeril), lidocaine patches, heat, 1 session of PT but patient stopped due to the excessive out of pocket cost, chiropractic treatments in the past which are ineffective, home exercise regimen as tolerated, use of a lumbar support brace, IFC unit use, TENS unit use, sitting and rest. PMH: GERD, Hypothyroidism, IBS, HH, MDD PSH: L3 Kyphoplasty (2021), R Cuff of RUE Repair, L RCT Repair, Appendectomy, Cholecystectomy, Hysterectomy SH: Negative x3 FH: Mo- CA. Fa- CA. All: See list Meds: See list REVIEW OF ORGAN SYSTEMS: CONSTITUTIONAL: No fevers or chills. No recent weight loss. NEUROLOGICAL: + numbness and tingling along the distal extremities. No seizure disorders or headaches. MUSCULOSKELETAL: + pain PSYCHIATRIC: Denies current depression or suicidal thoughts. Physical Examinations : Constitutional : Cooperative , not in acute distress . Neurologic : Cranial nerve II to XII intact. No focal neurological deficits. Psychiatric : alert & oriented x 3. Matching mood & appropriate affect. Judgment & insight intact. Musculoskeletal : Cervical Spine Motor strength in the deltoid and biceps: Normal right side. Normal Left side Motor strength biceps and the wrist extensors: Normal right side . Normal left side Motor strength in the triceps muscle: Normal right side. Normal left side Deep tendon reflexes: Normal at the biceps. Normal at Brachioradialis. Normal at triceps Vertebral body tenderness to deep palpation over Cervical facet loading test: positive bilaterally Spurling test: positive bilaterally Neck distraction test: positive bi laterally Ishaan sign: positive bilaterally Lumbar spine Motor strength lower extremities ,thigh and legs 5/5 Right side , 5/5 Left side Deep tendon reflexes : Normal Knee Jerk. Normal Ankle Jerk Vertebral body tenderness over L5 Lumbar facet Loading Test: positive Right / positive Left Range of motion of the lumbar spine Flexion 30 degrees, extension 10 degrees Straight Leg Raise test: Left/ Right positive at degree Richard test: positive right / positive left. Severe tenderness over the Sacroiliac joint on the Right / Left sides Gaenslen test: positive bilaterally Seated flexion test: positive bilaterally. Sacral spine : Severe tenderness over the Sacroiliac joint: right side / left side Range of motion: Flexion of the lumbar spine <60 degrees Range of motion: Extension of the lumbar spine <20 degrees Gaenslen's Test positive Josh's Test positive Richard test: positive right side / left side Thigh Thrust Test Sacral Thrust Test Imaging: CT without contrast of the lumbar spine from 09/10/22 reviewed Assessment/ Plan : Lumbar DDD Recommendation of interlaminar PANKAJ L5-S1 #1. Patient may need a series of injections, up to 3 within a six-month timeframe, optimal pain relief. Risks, benefits of procedure discussed and patient verbalized understanding. Denies aspirin or anti- coagulant use or medical history of diabetes. Protocol for discontinuation/ continuation of medications marisela procedure discussed. All questions answered. I have spent greater than 30 minutes on patient care today. Dr Burgess was available by phone for the evaluation of this patient. The time was used to review the medical records including relevant urine studies and Prescription history (MAPs), review of the available imaging, evaluation and examination of the patient, coordination of care with the medical staff and if applicable referring physicians, as well as creation of the medical record - Pain Location Lower Back Non-Pharmacological Interventions: Heat, Home Exercise, Inactivity, Position/Reposition, Sitting, Stretching, TENS Unit Pharmacological Interventions: PRN Medication PQRS Narrative: Smoking Status Never smoker Home Medications: Ambulatory Orders Levothyroxine Sodium [Synthroid] 100 mcg PO QAM 11/01/15 Ergocalciferol (Vitamin D2) [Vitamin D2] 50,000 unit PO MO 12/08/18 Fluticasone Nasal [place] [Flonase Nasal [place]] 2 spray EA NOSTRIL BID PRN 12/08/18 Montelukast [Singulair] 10 mg PO HS 05/06/19 Acetaminophen [Tylenol Extra Strength] 1,000 mg PO DIRECTED PRN 04/09/21 Omeprazole/Sodium Bicarbonate [Zegerid 20 mg Capsule] 1 each PO BID PRN 04/09/21 Cyclobenzaprine [Flexeril] 5 mg PO TID PRN #15 tablet 08/04/22 Lidocaine 5% Patch [Lidoderm] 1 patch TOPICAL DAILY 14 Days #14 patch 08/04/22 Cyclobenzaprine [Flexeril] 5 mg PO TID #45 tablet 09/19/22 cefaDROXiL [Duricef] 500 mg PO Q12HR 3 Days #6 cap 09/19/22 traMADol HCL 50 mg PO Q6H PRN 7 Days #28 tab 09/19/22 Controlled Substance Measures - Controlled Substance Measures Is patient prescribed a controlled substance at discharge?: No
== END ==
LOC: PNWHC3 12:49
PROVIDERS: ATTEND Specialist
DX: M51.36 Other intervertebral disc degeneration, lumbar region (principal); Z88.6 Allergy status to analgesic agent; Z88.5 Allergy status to narcotic agent
CPT/HCPCS: 99211

== ENCOUNTER → 2022-11-05 | Outpatient (CLI) | payer OTHER ==
--- NOTE | 2022-11-05 10:46 | MM ---
Reason for Exam: Follow-up at short interval from prior study. Last screening mammogram was performed 6 month(s) ago. Patient History: Menarche at age 12. First Full-Term at age 22. Left ovary removed at age 42. Right ovary removed at age 42. Hysterectomy at age 42. Postmenopausal. Benign Ultrasound-Guided Cyst Aspiration. Maternal aunt had breast cancer, age 35. Mother had breast cancer, age 45. Risk Values: Domi 5 year model risk: 3.0%. NCI Lifetime model risk: 12.4%. Prior Study Comparison: 03/28/2017 Screening Mammogram, Unknown. 11/13/2018 Bilateral Diagnostic Mammogram, [facility]. 05/02/2022 Bilateral MG diagnostic mammo w CAD D[facility], [facility]. Tissue Density: Left: The breast tissue is heterogeneously dense. This may lower the sensitivity of mammography. Findings: Analyzed By CAD. Stable chronic nodularity. No suspicious calcifications seen. Overall Assessment: Incomplete: need additional imaging evaluation, BI-RAD 0 Management: Diagnostic Breast Ultrasound of the left breast. A clinical breast exam by your physician is recommended on an annual basis and results should be correlated with mammographic findings. This exam should not preclude additional follow-up of suspicious palpable abnormalities. Results were given to the patient verbally at the time of exam. Electronically signed and approved by: Lan Wright M.D. Radiologis
--- NOTE | 2022-11-05 11:31 | USB ---
Reason for Exam: Follow-up at short interval from prior study. Patient History: Menarche at age 12. First Full-Term at age 22. Left ovary removed at age 42. Right ovary removed at age 42. Hysterectomy at age 42. Postmenopausal. Benign Ultrasound-Guided Cyst Aspiration. Maternal aunt had breast cancer, age 35. Mother had breast cancer, age 45. Risk Values: Domi 5 year model risk: 3.0%. NCI Lifetime model risk: 12.4%. Technique: Method: Targeted. Prior Study Comparison: 03/28/2017 Screening Mammogram, Unknown. 11/13/2018 Bilateral Diagnostic Mammogram, [facility]. 05/02/2022 Bilateral MG diagnostic mammo w CAD D[facility], [facility]. Findings: The upper outer quadrant of the left breast, the axilla of the left breast and the retroareolar of the left breast were scanned. Simple appearing cyst at the 12:00 location left breast 5 cm from the nipple is again noted and measures 4 x 3 mm and is more cystic on today's study. No solid masses are present.. Overall Assessment: Benign, BI-RAD 2 Management: Screening Mammogram of both breasts in 6 months. A clinical breast exam by your physician is recommended on an annual basis and results should be correlated with mammographic findings. This exam should not preclude additional follow-up of suspicious palpable abnormalities. Results were given to the patient verbally at the time of exam. Electronically signed and approved by: Lan Wright M.D. Radiologis
== END | disposition home or self-care (01) ==
LOC: RADUSWWP 10:17
PROVIDERS: ATTEND Internal Medicine Critical Care Medicine
DX: R92.8 Other abnormal and inconclusive findings on diagnostic imaging of breast (principal); Z80.3 Family history of malignant neoplasm of breast; Z78.0 Asymptomatic menopausal state; Z98.890 Other specified postprocedural states
CPT/HCPCS: 77061; 77065

== ENCOUNTER → 2022-12-11 | Outpatient (CLI) | payer OTHER ==
[2022-12-11 14:57] VITALS: BP 134/89; PULSE 85; RESP 18; TEMP 98.3
--- NOTE | 2022-12-11 15:09 | P.PAINPG ---
PQRS Measure Charge Sheet Comment: A 62 yr old female with a history of severe and chronic low back pain secondary to lumbar DDD and spondylosis with facet arthropathy without myelopathy presents today for LBP. Pain level is provoked at 8 /10 in intensity, constant, localized in the lumbar spine, crushing/ tingling in character w shooting towards the RLE. Pain is provoked by standing/ walking for periods of 5 min or more. Pain is alleviated with PT x 6 wks in Aug 2022, home exercise regimen, heat & ice as tolerated, medications (Tyl Arth, Flexeril, Lidoderm), sitting and rest. Pt can not take NSAIDs due to a past anaphylactic reaction, Dilaudid due to tachycardia side effect, or Morphine due to hypotension side effect. Interventional pain procedures completed include Denies Patient is currently on Tylenol Arthritis, Lidoderm 5% & Flexeril from Dr Maynard Patient denies any side effects of the medication(s), denies excessive d rowsiness or sleepiness, denies suicidal ideation and reports that the current pain medication is helping to control the pain and improve activities of daily living. Patient denies any motor or sensory deficits. Patient denies any fever or night sweats, denies any change in the bowel movements or urination. Physical Examination: -Constitutional: Cooperative. Not in acute distress . - Neurologic: Cranial nerve II to XII intact. No focal neurological deficits. - Psychatric: Alert & oriented x 3. Matching mood & appropriate affect. Judgment and insight intact. - Musculoskeletal: Cervical spine: Muscle bulk/ tone/ strength in the bilateral upper extremities normal Vertebral body tenderness to palpation over Spurling test positive Distraction test positive Facet loading test positive Thoracic spine Muscle bulk / tone/ strength in the bilateral paraspinal muscles normal Vertebral body tender to palpation over Facet loading test positive Lumbar spine: Motor bulk/ tone/ strength lower extremities , thigh and legs : 5/5 Deep tendon reflexes : Normal Knee Jerk. Normal Ankle Jerk . Vertebral body tenderness to palpation over L5 Lumbar Facet Loading Test positive Straight Leg Raise: positive at 30 degrees right side/ left side Gaenslen's Test positive Sacral spine : Severe tenderness over the Sacroiliac joint: right side / left side Range of motion: Flexion of the lumbar spine <60 degrees Range of motion: Extension of the lumbar spine <20 degrees Gaenslen's Test positive Richard test: positive right side / left side Thigh Thrust Test Sacral Thrust Test Assessment and plan: Chronic low back pain secondary to lumbar degenerative disc disease, spondylosis with facet arthropathy without myelopathy Recommendation of PANKAJ interlaminar L5-S1. May need a series of injections, up to 3 within a 6 mo period, for optimal pain relief. Risks, benefits of procedure discussed and pt verbalized understanding. Denies anticoagulant use or medical history of diabetes. All patient questions answered I have spent less than 30 minutes on patient care today. Dr Burgess was available by phone for the evaluation of this patient. The time was used to review the medical records including relevant urine studies and Prescription history (MAPs), review of the available imaging, evaluation and examination of the patient, coordination of care with the medical staff and if applicable referring physicians, as well as creation of the medical record PQRS Narrative: Smoking Status Never smoker Hx Alcohol Use (MH) Yes Home Medications: Ambulatory Orders Levothyroxine Sodium [Synthroid] 100 mcg PO QAM 11/01/15 Ergocalciferol (Vitamin D2) [Vitamin D2] 50,000 unit PO MO 12/08/18 Fluticasone Nasal [place] [Flonase Nasal [place]] 2 spray EA NOSTRIL BID PRN 12/08/18 Montelukast [Singulair] 10 mg PO HS 05/06/19 Acetaminophen [Tylenol Extra Strength] 1,000 mg PO DIRECTED PRN 04/09/21 Omeprazole/Sodium Bicarbonate [Zegerid 20 mg Capsule] 1 each PO BID PRN 04/09/21 Cyclobenzaprine [Flexeril] 5 mg PO TID PRN #15 tablet 08/04/22 Lidocaine 5% Patch [Lidoderm] 1 patch TOPICAL DAILY 14 Days #14 patch 08/04/22 Cyclobenzaprine [Flexeril] 5 mg PO TID #45 tablet 09/19/22 cefaDROXiL [Duricef] 500 mg PO Q12HR 3 Days #6 cap 09/19/22 traMADol HCL 50 mg PO Q6H PRN 7 Days #28 tab 09/19/22 Controlled Substance Measures - Controlled Substance Measures Is patient prescribed a controlled substance at discharge?: No
== END ==
LOC: PNWHC3 12:14
PROVIDERS: ATTEND Specialist
DX: M47.816 Spondylosis without myelopathy or radiculopathy, lumbar region (principal); M51.36 Other intervertebral disc degeneration, lumbar region; Z88.6 Allergy status to analgesic agent; Z88.5 Allergy status to narcotic agent
CPT/HCPCS: 99211

== ENCOUNTER → 2023-02-18 | Outpatient (CLI) | payer OTHER ==
--- NOTE | 2023-02-19 15:40 | BD ---
EXAMINATION TYPE: Axial Bone Density DATE OF EXAM: 02/18/2023 CLINICAL HISTORY: 62 years old Female. ICD-10 CODE: M85.88 Height: 59 Weight: 229 FRAX RISK QUESTIONS: History of Fracture in Adulthood: yes, L-3 fx with bone cement 2021, lt shoulder 2020 Secondary Osteoporosis: no Rheumatoid Arthritis: no RISK FACTORS HISTORY OF: Spine Fracture: yes, L3 When: 2021 Surgery to Spine: yes When: 2021 Family History of Osteoporosis: no Active: yes Diet low in dairy products/other sources of calcium: no Postmenopausal woman: yes Lost more than 2 inches in height since high school: no Frequent falls: no Poor Health: no MEDICATIONS: Thyroid Medications: yes Which medication: Synthroid How Lon+ years Additional Medications: yes vit d, singular, reflux, IBS meds, reflux EXAM MEASUREMENTS: Bone mineral densitometry was performed using the [employer] System. Bone mineral density as measured about the Lumbar spine is: ----- L1-L4(G/cm2): 1.093 T Score Values are as follows: ----- L1: -2.9 ----- L2: -3.0 ----- L3: 6.1 ----- L4: -3.4 ----- L1-L4: -0.7 Z Score Values are as follows: ----- L1: -2.5 ----- L2: -2.7 ----- L3: 6.4 ----- L4: -3.1 ----- L1-L4: -0.4 Bone mineral density has: Increased 19.2% since study of: 03/03/2012 Bone mineral density about the R hip (g/cm2): 0.808 Bone mineral density about the L hip (g/cm2): 0.792 T Score values are as follows: -----R Neck: -2.5 -----L Neck: -2.4 -----R Total: -1.6 -----L Total: -1.7 Z Score values are as follows: -----R Neck: -1.9 -----L Neck: -1.7 -----R Total: -1.3 -----L Total: -1.4 Bone mineral density has: Decreased -8.2% since study of: 03/03/2012 FRAX%s: The graph provided illustrates a 17.8% chance for a major osteoporotic fx and a 3.4% chance f or the hips probability for fx in 10 years time. IMPRESSION: Osteopenia (T Score between -2.5 and -1). There is slightly increased risk of fracture and the patient may be considered for treatment. Re-Screen 2-5 years. NOTE: T-SCORE=SD OF THE YOUNG ADULT MEAN.
== END | disposition home or self-care (01) ==
LOC: RADBDWWP 15:40
PROVIDERS: ATTEND Internal Medicine Critical Care Medicine
DX: M48.56XA Collapsed vertebra, not elsewhere classified, lumbar region, initial encounter for fracture (principal); M81.0 Age-related osteoporosis without current pathological fracture; M85.89 Other specified disorders of bone density and structure, multiple sites
CPT/HCPCS: 77080

== ENCOUNTER 2023-03-09 12:55 | Emergency (ER) | payer OTHER ==
[2023-03-09] MEDS ORDERED: LIDOCAINE 5% PATCH TOPICAL STA (13:22)
[2023-03-09] MEDS ORDERED: ACETAMINOPHEN TAB 500 MG TAB PO STA (13:22)
[2023-03-09] MEDS ORDERED: CYCLOBENZAPRINE 10 MG TAB PO STA (13:22)
--- NOTE | 2023-03-09 14:07 | CT ---
EXAMINATION TYPE: CT thoracic spine wo con CT DLP: 1446.2 mGycm, Automated exposure control for dose reduction was used. DATE OF EXAM: 03/09/2023 1:58 PM COMPARISON: None. CLINICAL INDICATION:Female, 62 years old with history of fall, pain; PHH, Fall, pain. History of L3 Fracture TECHNIQUE: Axial images of the thoracic spine were obtained without contrast. Coronal and sagittal re formats were performed. FINDINGS: The thoracic vertebral bodies have preserved heights and alignment. Mild multilevel degene rative disc disease with disc space narrowing, endplate sclerosis, and anterior osteophytosis, and va cuum disc disease. I do not see any evidence of extradural defects nor significant spinal canal narrowing at any thoraci c vertebral body level. Small hiatal hernia. Nonobstructive right renal calculus measuring up to 3 mm. Please refer to dedicated CT lumbar spine the same day for findings. IMPRESSION: 1. No acute fracture of the thoracic spine. 2. Mild multilevel degenerative disease. 3. No spinal canal or neural foraminal stenosis is identified.
--- NOTE | 2023-03-09 14:09 | ED ---
General Adult HPI - General Chief complaint: Fall Stated complaint: Fall/prev back fracture Time Seen by Provider: 03/09/23 13:00 Source: patient, RN notes reviewed, old records reviewed Mode of arrival: wheelchair Limitations: no limitations - History of Present Illness Initial comments: Patient is a 62-year-old female with past medical history remarkable for GERD, thyroid disorder, prior back injuries as well as back surgery including cement injections who follows up with Dr. Maynard who presents to the emergency Department complaining of a trip and fall in the parking lot at [employer]. Patient states she was going down an incline when she lost her balance and fell onto her left side. Is having some back spasming as well as midline lumbar spine pain. Is concerned regarding her lumbar spine. Presents for further evaluation at this time. Denies any abdominal pain, chest pain, shortness of breath. Denies hitting her head or experiencing loss of consciousness. She is not on blood thinners. Denies any paresthesias or paralysis. Denies any urinary or bowel incontinence or retention. Denies any other acute complaints at this time. Denies any saddle anesthesias. Denies any other acute complaints at this time. Presents for further evaluation of this time. - Related Data Home Medications Medication Instructions Recorded Confirmed Levothyroxine Sodium [Synthroid] 100 mcg PO QAM 11/01/15 12/11/22 Ergocalciferol (Vitamin D2) 50,000 unit PO MO 12/08/18 12/11/22 [Vitamin D2] Fluticasone Nasal [place] [Flonase 2 spray EA NOSTRIL BID PRN 12/08/18 12/11/22 Nasal [place]] Montelukast [Singulair] 10 mg PO HS 05/06/19 12/11/22 Acetaminophen [Tylenol Extra 1,000 mg PO DIRECTED PRN 04/09/21 12/11/22 Strength] Omeprazole/Sodium Bicarbonate 1 each PO BID PRN 04/09/21 12/11/22 [Zegerid 20 mg Capsule] Previous Rx's Medication Instructions Recorded Cyclobenzaprine [Flexeril] 5 mg PO TID PRN #15 tablet 08/04/22 Lidocaine 5% Patch [Lidoderm] 1 patch TOPICAL DAILY 14 Days #14 08/04/22 patch Cyclobenzaprine [Flexeril] 5 mg PO TID #45 tablet 09/19/22 cefaDROXiL [Duricef] 500 mg PO Q12HR 3 Days #6 cap 09/19/22 traMADol HCL 50 mg PO Q6H PRN 7 Days #28 tab 09/19/22 Allergies Allergy/AdvReac Type Severity Reaction Status Date / Time aspirin Allergy Rash/Hives Verified 03/09/23 13:02 morphine Allergy Blood Verified 03/09/23 13:02 pressure and heart rate dropped after injection NSAIDS (Non-Steroidal Allergy Rash/Hives, Verified 03/09/23 13:02 Anti-Inflamma facial swelling and redness hydromorphone [From Dilaudid] AdvReac made pt Verified 03/09/23 13:02 anxious, scared, felt like heart racing, dizziness. Review of Systems ROS Statement: Those systems with pertinent positive or pertinent negative responses have been documented in the HPI. Review of Systems: CONST: Denies fever EYES: Denies blurry vision ENT: Denies nasal congestion C/V: Denies Chest pain RESP: Denies shortness of breath GI: Denies abdominal pain : Denies dysuria SKIN: Denies rash. MSK: Endorses lumbar spine pain, back pain NEURO: Denies headache ROS Other: All systems not noted in ROS Statement are negative. Past Medical History Past Medical History: GERD/Reflux, Thyroid Disorder Additional Past Medical History / Comment(s): Small hiatal hernia, IBS. History of Any Multi-Drug Resistant Organisms: None Reported Past Surgical History: Appendectomy, Back Surgery, Cholecystectomy, Hysterectomy, Orthopedic Surgery Additional Past Surgical History / Comment(s): Bilateral rotator cuff repair. Past Anesthesia/Blood Transfusion Reactions: Motion Sickness, Postoperative Nausea & Vomiting (PONV) Past Psychological History: Depression Smoking Status: Former smoker Past Alcohol Use History: Rare Past Drug Use History: None Reported - Past Family History Mother Family Medical History: Cancer Father Family Medical History: Cancer General Exam - General Exam Comments Initial Comments: General: Appears in mild distress secondary to back pain. HEAD: Normal with no signs of head trauma. EYES: EOMI ENT: Hearing grossly intact RESPIRATORY: No respiratory distress C/V: Regular rate and rhythm. S1 and S2 auscultated. Peripheral pulses 2+ and intact throughout. ABD: Abd is soft, nontender, nondistended EXT: Normal range of motion, no obvious deformity no midline cervical tenderness to palpation. Some inferior thoracic as well as lumbar spine tenderness to palpation as well as paraspinal muscle tenderness to palpation on the left. No obvious deformities palpated. SKIN: No rashes or lesions observed on exposed skin. NEURO: Alert and oriented 4. No saddle anesthesias. No focal sensory or strength deficits. Neurovascular intact throughout. Limitations: no limitations Course Vital Signs 03/09/23 03/09/23 12:57 15:05 Temperature 98.4 F 97.6 F Pulse Rate 70 72 Respiratory 20 14 Rate Blood Pressure 159/88 128/68 O2 Sat by Pulse 97 98 Oximetry Medical Decision Making - Medical Decision Making Was pt. sent in by a medical professional or institution (, PA, CLINICAL EVALUATOR, urgent care, hospital, or care home...) When possible be specific @ -No Did you speak to anyone other than the patient for history (EMS, parent, family, police, friend...)? What history was obtained from this source @ -No Did you review nursing and triage notes (agree or disagree)? Why? @ -I reviewed and agree with nursing and triage notes Were old charts reviewed (outside hosp., previous admission, EMS record, old EKG, old radiological studies, urgent care reports/EKG's, care home records)? Report findings @ -Previous visit to Dr. Maynard's office from August of last year was reviewed. Differential Diagnosis (chest pain, altered mental status, abdominal pain women, abdominal pain men, vaginal bleeding, weakness, fever, dyspnea, syncope, headache, dizziness, GI bleed, back pain, seizure, CVA, palpatations, mental health, musculoskeletal)? @ -Muscle strain, muscle sprain, traumatic injury to the lumbar spine, traumatic injury to the thoracic spine, cauda equina syndrome this list is not all-inclusive. EKG interpreted by me (3pts min.). @ -None done X-rays interpreted by me (1pt min.). @ -None done CT interpreted by me (1pt min.). @ -CT imaging of the thoracic and lumbar spine reveals no obvious acute traumatic injury. Chronic findings present including degenerative disease, as well as stable vertebral augmentation of the L3 vertebral spine with the known pression fracture. U/S interpreted by me (1pt. min.). @ -None done What testing was considered but not performed or refused? (CT, X-rays, U/S, labs)? Why? @ -None What meds were considered but not given or refused? Why? @ -None Did you discuss the management of the patient with other professionals (professionals i.e. , ASHLEY, CLINICAL EVALUATOR, lab, RT, psych nurse, nursing home social worker, core driller helper, teacher, environmental conservation officer, hospice case manager)? Give summary @ -No Was smoking cessation discussed for >3mins.? @ -No Was critical care preformed (if so, how long)? @ -No Were there social determinants of health that impacted care today? How? (Homelessness, low income, unemployed, alcoholism, drug addiction, transportation, low edu. Level, literacy, decrease access to med. care, fpc, rehab)? @ -No Was there de-escalation of care discussed even if they declined (Discuss DNR or withdrawal of care, Hospice)? DNR status @ -No What co-morbidities impacted this encounter? (DM, HTN, Smoking, COPD, CAD, Cancer, CVA, ARF, Chemo, Hep., AIDS, mental health diagnosis, sleep apnea, m orbid obesity)? @ -History of prior lumbar compression fracture with spent injection Was patient admitted / discharged? Hospital course, mention meds given and ro torres martinez, prescriptions, significant lab abnormalities, going to OR and other pertinent info. @ -Based on the patient's presentation and physical exam, I'm concerned for muscle strain or spasm to the patient's spine but does have a significant lumbar spine surgery and injury history. We will obtain CT imaging or lumbar spine. She recently medically treated with lidocaine patch, as well as oral Flexeril and Tylenol. She was in agreement this plan. Vital signs within acceptable limits. No concern for cauda equina syndrome at this time as she has no red flag symptoms. CT imaging negative for any acute injury or process. On reevaluation, patient is feeling improved. We did discuss her imaging. I do believe she likely experienced a muscle spasms in the back strain. Patient already has muscle relaxers at home as well as lidocaine patches and does not require any more. She does follow up with Dr. Maynard in the next week. I believe it is safe for her to be discharged at this time with strict return precautions. She expressed understanding was in agreement with this plan. I instructed the patient to follow up with their PCP in the next 1-3 days. I explained that the patient should return to the emergency department if they experience any worsening symptoms. Strict return precautions were discussed with the patient. The patient expressed understanding of these instructions. I answered all questions that the patient had. The patient was discharged home in good condition with their prescriptions and follow up information. Undiagnosed new problem with uncertain prognosis? @ -No Drug Therapy requiring intensive monitoring for toxicity (Heparin, Nitro, Insulin, Cardizem)? @ -No Were any procedures done? @ -No Diagnosis/symptom? @ -Fall, lumbar strain Acute, or Chronic, or Acute on Chronic? @ -Acute Uncomplicated (without systemic symptoms) or Complicated (systemic symptoms)? @ -Uncomplicated Side effects of treatment? @ -none Exacerbation, Progression, or Severe Exacerbation] @ -no Poses a threat to life or bodily function? @ -no Disposition Clinical Impression: Fall, Lumbar strain Disposition: HOME SELF-CARE Condition: Good Instructions (If sedation given, give patient instructions): Fall Prevention for Older Adults (ED), Low Back Strain (ED) Is patient prescribed a controlled substance at d/c from ED?: No Referrals: Jake Felton MD [Primary Care Provider] - 1-2 days Timi Maynard DO [Doctor of Osteopathic Medicine] - 1-2 days Time of Disposition: 14:35
--- NOTE | 2023-03-09 14:13 | CT ---
EXAMINATION TYPE: CT lumbar spine wo con CT DLP: 1165.8 mGycm, Automated exposure control for dose reduction was used. DATE OF EXAM: 03/09/2023 1:58 PM COMPARISON: CT lumbar spine 09/10/2022, lumbar spine radiograph 09/19/2022. CLINICAL INDICATION:Female, 62 years old with history of fall, pain; PHH, Fall, pain. History of L3 Fracture TECHNIQUE: Multiple axial images were obtained from the midportion of T11 through the sacroiliac annamarie nts. Soft tissue and bone windows in coronal and sagittal planes were obtained and reviewed. FINDINGS: Alignment: There are 5 lumbar type vertebral bodies. Similar grade 1 anterolisthesis of L5 on S1. Bone: Postsurgical vertebral augmentation changes of L3 compression fracture. No significant change in height loss with approximately 1 mm retropulsion which is unchanged. No evidence of acute fracture identified. Remaining vertebral bodies demonstrate normal heights. Discs: T12-L1: No spinal canal or neural foraminal stenosis is identified. L1-L2: No spinal canal or neural foraminal stenosis is identified. L2-L3: No spinal canal or neural foraminal stenosis is identified. L3-L4: There is 1 mm of retropulsion without significant central canal stenosis. The neural foramen a re patent bilaterally. L4-L5: Mild broad-based disc bulge with mild effacement of the anterior thecal sac. Bilateral facet arthropathy. Mild bilateral neural foraminal stenosis. L5-S1: Grade 1 anterolisthesis of L5 on S1 redemonstrated with uncovering of the disc. Bilateral face t arthropathy. No significant central canal stenosis. Mild bilateral neural foraminal stenosis. Other: Postcholecystectomy changes. Nonobstructive 3 mm right renal calculus. IMPRESSION: 1. No acute fracture of the lumbar spine. 2. Redemonstration of compression fracture of the L3 vertebral spine status post vertebral augmentati on. 3. Similar grade 1 anterolisthesis of L5 on S1. 4. Mild multilevel degenerative disc disease.
[2023-03-09 15:07] VITALS: BP 128/68; PULSE 72; RESP 14; TEMP 97.6
== END 2023-03-09 15:19 | disposition home or self-care (01) ==
LOC: EC 12:55
DX: S39.012A Strain of muscle, fascia and tendon of lower back, initial encounter (principal); K21.9 Gastro-esophageal reflux disease without esophagitis; E07.9 Disorder of thyroid, unspecified; Z79.890 Hormone replacement therapy; Z79.899 Other long term (current) drug therapy; Z87.891 Personal history of nicotine dependence; Z88.5 Allergy status to narcotic agent; Z88.6 Allergy status to analgesic agent; Z88.8 Allergy status to other drugs, medicaments and biological substances; W01.0XXA Fall on same level from slipping, tripping and stumbling without subsequent striking against object, initial encounter; Y92.481 Parking lot as the place of occurrence of the external cause
CPT/HCPCS: 72128; 72131; 99285

== ENCOUNTER → 2023-04-01 | Outpatient (CLI) | payer OTHER ==
--- NOTE | 2023-04-02 08:51 | MR ---
EXAMINATION TYPE: MR lumbar spine wo con DATE OF EXAM: 04/01/2023 COMPARISON: 08/23/2022 MRI lumbar spine HISTORY: Lower back pain, BLE radiculopathy S/P fall. Hx surgery. CONTRAST: 0 mL intravenous Gadavist. TECHNIQUE: Multiplanar, multisequence images of the lumbar spine were acquired. FINDINGS: L5-S1: There is mild grade 1 spondylolisthesis of L5 into S1. Some disc uncovering is present. No the josé sac contact is evident. Facet hypertrophy is present. Neural foramen are patent. L4-L5: No significant disc bulge or disc herniation. No spinal canal stenosis. No foraminal stenosi s. Facet hypertrophy is present. L3-L4: There is a severe superior endplate compression deformity with 50% loss of vertebral body heig ht. This is old without increased signal on T2-weighted sequences. No posterior wall displacement is evident. No spinal canal stenosis. Findings appear to be present on prior examination. No significant disc bulge or disc herniation. No foraminal stenosis. L2-L3: No significant disc bulge or disc herniation. No spinal canal stenosis. No foraminal stenosi s. L1-L2: No significant disc bulge or disc herniation. No spinal canal stenosis. No foraminal stenosi s. T12-L1: No significant disc bulge or disc herniation. No spinal canal stenosis. No foraminal stenos is. IMPRESSION: 1. Old compression deformity L3. 2. Minimal grade 1 spondylolisthesis of L4 anteriorly on L5.
== END | disposition home or self-care (01) ==
LOC: RADMRIMAIN 11:17
PROVIDERS: ATTEND Orthopaedic Surgery
DX: M43.16 Spondylolisthesis, lumbar region (principal)
CPT/HCPCS: 72148

== ENCOUNTER 2023-04-21 11:14 | Emergency (ER) | payer OTHER ==
--- NOTE | 2023-04-21 12:27 | ED ---
General Adult HPI - General Chief complaint: Recheck/Abnormal Lab/Rx Stated complaint: Rib pain, DAMIAN Time Seen by Provider: 04/21/23 12:06 Source: patient Mode of arrival: ambulatory Limitations: no limitations - History of Present Illness Initial comments: This patient is a 63-year-old woman who presents with complaint of right-sided chest wall pain. The patient states that Friday she had been reaching into a bin to get a frozen turkey and she felt something pop at the base of her ribs on the right side. She states that since that time when she moves or she presses the chest wall, or occasionally with deep breath she has sharp pain. She states when she remains still there is not really much pain. She attempted to go to her physical therapy today but was unable to do anything so she presents here to see if there is an injury. No fever or chills. No cough or dyspnea. -: days(s) Location: chest Quality: aching Consistency: constant Improves with: none Worsens with: movement, other Associated Symptoms: denies other symptoms Treatments Prior to Arrival: none - Related Data Home Medications Medication Instructions Recorded Confirmed Levothyroxine Sodium [Synthroid] 100 mcg PO QAM 11/01/15 12/11/22 Ergocalciferol (Vitamin D2) 50,000 unit PO MO 12/08/18 12/11/22 [Vitamin D2] Fluticasone Nasal [place] [Flonase 2 spray EA NOSTRIL BID PRN 12/08/18 12/11/22 Nasal [place]] Montelukast [Singulair] 10 mg PO HS 05/06/19 12/11/22 Acetaminophen [Tylenol Extra 1,000 mg PO DIRECTED PRN 04/09/21 12/11/22 Strength] Omeprazole/Sodium Bicarbonate 1 each PO BID PRN 04/09/21 12/11/22 [Zegerid 20 mg Capsule] Previous Rx's Medication Instructions Recorded Cyclobenzaprine [Flexeril] 5 mg PO TID PRN #15 tablet 08/04/22 Lidocaine 5% Patch [Lidoderm] 1 patch TOPICAL DAILY 14 Days #14 08/04/22 patch Cyclobenzaprine [Flexeril] 5 mg PO TID #45 tablet 09/19/22 cefaDROXiL [Duricef] 500 mg PO Q12HR 3 Days #6 cap 09/19/22 traMADol HCL 50 mg PO Q6H PRN 7 Days #28 tab 09/19/22 HYDROcodone/APAP 5-325MG [[place] 1 tab PO Q4HR PRN 3 Days #15 tab 04/21/23 5-325] Allergies Allergy/AdvReac Type Severity Reaction Status Date / Time aspirin Allergy Rash/Hives Verified 04/21/23 11:33 morphine Allergy Blood Verified 04/21/23 11:33 pressure and heart rate dropped after injection NSAIDS (Non-Steroidal Allergy Rash/Hives, Verified 04/21/23 11:33 Anti-Inflamma facial swelling and redness hydromorphone [From Dilaudid] AdvReac made pt Verified 04/21/23 11:33 anxious, scared, felt like heart racing, dizziness. Review of Systems ROS Statement: Those systems with pertinent positive or pertinent negative responses have been documented in the HPI. ROS Other: All systems not noted in ROS Statement are negative. Constitutional: Denies: fever, chills, weakness Respiratory: Denies: cough, dyspnea, wheezes, hemoptysis Cardiovascular: Reports: as per HPI, chest pain. Denies: palpitations, edema, syncope Gastrointestinal: Denies: abdominal pain, nausea, vomiting, diarrhea Genitourinary: Denies: dysuria, hematuria Musculoskeletal: Denies: back pain Skin: Denies: rash Past Medical History Past Medical History: GERD/Reflux, Thyroid Disorder Additional Past Medical History / Comment(s): Small hiatal hernia, IBS. History of Any Multi-Drug Resistant Organisms: None Reported Past Surgical History: Appendectomy, Back Surgery, Cholecystectomy, Hysterectomy , Orthopedic Surgery Additional Past Surgical History / Comment(s): Bilateral rotator cuff repair. Past Anesthesia/Blood Transfusion Reactions: Motion Sickness, Postoperative Nausea & Vomiting (PONV) Past Psychological History: Depression Smoking Status: Former smoker Past Alcohol Use History: Rare Past Drug Use History: None Reported - Past Family History Mother Family Medical History: Cancer Father Family Medical History: Cancer General Exam Limitations: no limitations General appearance: alert, in no apparent distress Head exam: Present: atraumatic, normocephalic Eye exam: Present: normal appearance. Absent: scleral icterus, conjunctival injection Neck exam: Present: normal inspection Respiratory exam: Present: normal lung sounds bilaterally, chest wall tenderness. Absent: respiratory distress, wheezes, rales, rhonchi, stridor, accessory muscle use Cardiovascular Exam: Present: regular rate, normal rhythm, normal heart sounds. Absent: systolic murmur, diastolic murmur, rubs, gallop GI/Abdominal exam: Present: soft. Absent: distended, tenderness, guarding, rebound, rigid, mass, pulsatile mass Extremities exam: Present: normal inspection, normal capillary refill. Absent: pedal edema, calf tenderness Back exam: Present: normal inspection. Absent: vertebral tenderness Neurological exam: Present: alert Skin exam: Present: warm, dry, intact, normal color. Absent: rash Course Vital Signs 04/21/23 11:29 Temperature 97.8 F Pulse Rate 66 Respiratory 20 Rate Blood Pressure 182/105 O2 Sat by Pulse 98 Oximetry Medical Decision Making - Medical Decision Making Was pt. sent in by a medical professional or institution (, PA, LINEN GRADER, urgent care, hospital, or fdc...) When possible be specific @ -[No] Did you speak to anyone other than the patient for history (EMS, parent, family, police, friend...)? What history was obtained from this source @ -[No] Did you review nursing and triage notes (agree or disagree)? Why? @ -[I reviewed and agree with nursing and triage notes] Were old charts reviewed (outside hosp., previous admission, EMS record, old EKG, old radiological studies, urgent care reports/EKG's, fdc records)? Report findings @ -[No old charts were reviewed] Differential Diagnosis (chest pain, altered mental status, abdominal pain women, abdominal pain men, vaginal bleeding, weakness, fever, dyspnea, syncope, headache, dizziness, GI bleed, back pain, seizure, CVA, palpatations, mental health, musculoskeletal)? @ -[Differential Musculoskeletal Muscular strain, contusion, fracture, muscle spasm, nerve compression, ... This is not meant to be in all inclusive list EKG interpreted by me (3pts min.). @ -[None X-rays interpreted by me (1pt min.). @ -[The patient had chest and right rib x-ray which I interpreted as showing right rib injury. No pneumothorax. CT interpreted by me (1pt min.). @ -[None done] U/S interpreted by me (1pt. min.). @ -[None done] What testing was considered but not performed or refused? (CT, X-rays, U/S, labs)? Why? @ -[None] What meds were considered but not given or refused? Why? @ -[None] Did you discuss the management of the patient with other professionals (professionals i.e. , PA, LINEN GRADER, lab, RT, psych nurse, geriatric social worker, family lawyer, teacher, guest relations officer, case operator)? Give summary @ -[No] Was smoking cessation discussed for >3mins.? @ -[No] Was critical care preformed (if so, how long)? @ -[No] Were there social determinants of health that impacted care today? How? (Homelessness, low income, unemployed, alcoholism, drug addiction, transportation, low edu. Level, literacy, decrease access to med. care, correction, rehab)? @ -[No] Was there de-escalation of care discussed even if they declined (Discuss DNR or withdrawal of care, Hospice)? DNR status @ -[No] What co-morbidities impacted this encounter? (DM, HTN, Smoking, COPD, CAD, Cancer, CVA, ARF, Chemo, Hep., AIDS, mental health diagnosis, sleep apnea, morbid obesity)? @ -[None] Was patient admitted / discharged? Hospital course, mention meds given and route, prescriptions, significant lab abnormalities, going to OR and other pertinent info. @ -[Discharged Undiagnosed new problem with uncertain prognosis? @ -[No] Drug Therapy requiring intensive monitoring for toxicity (Heparin, Nitro, Insulin, Cardizem)? @ -[No] Were any procedures done? @ -[No] Diagnosis/symptom? @ -[Acute rib fracture Hypertension Acute, or Chronic, or Acute on Chronic? @ -[Acute Uncomplicated (without systemic symptoms) or Complicated (systemic symptoms)? @ -[Uncomplicated Side effects of treatment? @ -[No] Exacerbation, Progression, or Severe Exacerbation? @ -[No] Poses a threat to life or bodily function? How? (Chest pain, [place], [place], pneumonia, PE, COPD, DKA, ARF, appy, cholecystitis, CVA, Diverticulitis, Homicidal, Suicidal, threat to staff... and all critical care pts) @ -[No] Disposition Clinical Impression: Rib fracture, Hypertension Disposition: HOME SELF-CARE Condition: Good Instructions (If sedation given, give patient instructions): Rib Fracture (ED), Hypertension (ED) Prescriptions: HYDROcodone/APAP 5-325MG [[place] 5-325] 1 tab PO Q4HR PRN 3 Days #15 tab PRN Reason: Pain Is patient prescribed a controlled substance at d/c from ED?: Yes Referrals: Jake Felton MD [Primary Care Provider] - 1-2 days
--- NOTE | 2023-04-21 13:08 | XR ---
EXAMINATION TYPE: XR ribs RT w pa chest xray DATE OF EXAM: 04/21/2023 CLINICAL HISTORY: Chest and right rib pain after injury. TECHNIQUE: Single frontal view of the chest is obtained. Frontal and oblique images of the right-side d ribs. COMPARISON: None FINDINGS: There is no focal air space opacity, pleural effusion, or pneumothorax seen. The cardiac silhouette size is within normal limits. The osseous structures are intact. Images of right-sided ribs show no acute displaced fracture. Overlying soft tissue is unremarkable. IMPRESSION: 1. No acute cardiopulmonary process. 2. No acute displaced right-sided rib fracture.
[2023-04-21 14:07] VITALS: BP 168/83; PULSE 60; RESP 16; TEMP 98
== END 2023-04-21 14:01 | disposition home or self-care (01) ==
LOC: EC 11:14
DX: S22.31XA Fracture of one rib, right side, initial encounter for closed fracture (principal); I10 Essential (primary) hypertension; K21.9 Gastro-esophageal reflux disease without esophagitis; E07.9 Disorder of thyroid, unspecified; Z79.890 Hormone replacement therapy; Z79.899 Other long term (current) drug therapy; Z88.5 Allergy status to narcotic agent; Z88.6 Allergy status to analgesic agent; Z87.891 Personal history of nicotine dependence; X50.1XXA Overexertion from prolonged static or awkward postures, initial encounter
CPT/HCPCS: 99284

== ENCOUNTER → 2023-08-28 | Outpatient (CLI) | payer OTHER ==
--- NOTE | 2023-08-29 09:35 | CT ---
EXAMINATION TYPE: CT abdomen w con DATE OF EXAM: 08/28/2023 COMPARISON: X-ray of the RIBS 04/21/2023 HISTORY: Upper right abdominal pain that radiates towards left side x [address] DLP: 1426.8 mGycm Automated exposure control for dose reduction was used. TECHNIQUE: Helical acquisition of images was performed from the lung bases through the top of iliac crest to include entire abdomen. CONTRAST: Performed with Oral Contrast and with IV Contrast, patient injected with 100 cc mL of Isovue 300. FINDINGS: LUNG BASES: No significant abnormality is appreciated. LIVER/GB: Postcholecystectomy changes PANCREAS: No significant abnormality is seen. SPLEEN: No significant abnormality is seen. ADRENALS: No significant abnormality is seen. KIDNEYS: There is left-sided parapelvic cyst. There is a cortical right-sided renal calculus with vol ume loss. Findings compatible prior insult or infection. BOWEL: Small hiatal hernia. Bowel gas pattern nonspecific obstruction. LYMPH NODES: No significant abnormality is seen. OSSEOUS STRUCTURES: Previous vertebral plasty. Facet arthropathy changes bilateral SI joints through out. FREE AIR: No free air is visualized. OTHER: Atherosclerotic change aorta. No free fluid or free air. IMPRESSION: 1. Moderate hydronephrosis. 2. Postcholecystectomy. 3. Chronic appearing cortical loss upper pole right kidney. 4. Small hiatal hernia.
== END | disposition home or self-care (01) ==
LOC: RADCTMAIN 16:08
PROVIDERS: ATTEND Internal Medicine Critical Care Medicine
DX: K44.9 Diaphragmatic hernia without obstruction or gangrene (principal); K91.5 Postcholecystectomy syndrome; N13.30 Unspecified hydronephrosis; N28.89 Other specified disorders of kidney and ureter
CPT/HCPCS: 74160; Q9967

== ENCOUNTER → 2023-10-18 | Outpatient (CLI) | payer OTHER ==
--- NOTE | 2023-10-18 16:41 | MR ---
EXAMINATION TYPE: MR knee LT wo con DATE OF EXAM: 10/18/2023 COMPARISON: None HISTORY: Left knee pain for 10 days. TECHNIQUE: Multiplanar, multisequence imaging of the left knee is performed without IV contrast. FINDINGS: There is no bone contusion or fracture. There is a multiloculated Palacios's cyst and there is diffuse abnormal signal intensity in the surround ing soft tissues posterior to the knee on the T2-weighted images consistent with fluid/inflammation. The findings suggest presence of partial rupture of the Palacios's cyst. There is marked osteophytic change of the patellofemoral compartment where there is near complete los s of the patellar cartilage and mild subchondral bone changes within the patella. There is a tiny annamarie nt effusion. There is moderate osteophytic change of the medial compartment the knee where there is moderate thinn ing of the cartilage and mild displacement of the meniscus medially. There is diffuse degenerative si gnal within the medial meniscus but no discrete tear. There is mild osteophytic change of the lateral compartment the knee where there is mild hypertrophic spurring. There is no discrete lateral menisca l tear. The cruciate and collateral ligaments are intact. The patellar and quadriceps tendons are intact. IMPRESSION: 1. Multiloculated Palacios's cyst with probable partial rupture with infiltration of the surrounding pos terior knee soft tissues with fluid. 2. small joint effusion. 3. Tricompartment osteoarthritis of the knee greatest and severe in the patellofemoral compartment, m oderate in the medial compartment and mild in the lateral compartment. 4. Degenerative signal within the medial meniscus but no discrete tear. No lateral meniscal tear. 5. Cruciate and collateral ligaments intact. 6. No bone contusion or fracture.
== END | disposition home or self-care (01) ==
LOC: RADMRIMAIN 11:00
PROVIDERS: ATTEND Orthopaedic Surgery
DX: M17.12 Unilateral primary osteoarthritis, left knee (principal); M71.22 Synovial cyst of popliteal space [Baker], left knee; M25.462 Effusion, left knee

== ENCOUNTER → 2024-04-23 | Outpatient (CLI) | payer MEDICARE ==
--- NOTE | 2024-04-23 09:53 | MM ---
Reason for Exam: Follow-up at short interval from prior study. Last mammogram was performed 1 year(s) and 11 month(s) ago. Patient History: Menarche at age 12. First Full-Term at age 22. Left ovary removed at age 42. Right ovary removed at age 42. Hysterectomy at age 42. Postmenopausal. Benign Ultrasound-Guided Cyst Aspiration. Maternal aunt had breast cancer, age 35. Mother had breast cancer, age 45. Risk Values: Domi 5 year model risk: 3.2%. NCI Lifetime model risk: 11.7%. Tissue Density: There are scattered areas of fibroglandular density. Findings: Analyzed By CAD. The pattern is symmetrical. Benign vascular calcifications present bilaterally. There are some benign rounded calcifications punctate calcifications scattered bilaterally. No suspicious interval change. No suspicious groups of microcalcifications, spiculated or lobular masses, architectural distortion or other secondary signs of malignancy are mammographically apparent. Overall Assessment: Benign, BI-RAD 2 Management: Screening Mammogram of both breasts in 1 year. A negative mammogram report should not preclude additional follow up of suspicious palpable abnormalities. Patient should continue monthly self breast exam. A clinical breast exam by your physician is recommended on an annual basis and results should be correlated with mammographic findings. Note on Domi scores and lifetime risk: 1. A Domi score greater than 3% is considered moderate risk. If this is the case, consider specialist referral to assess eligibility for a risk reducing agent. 2. If overall lifetime risk for the development of breast cancer is 20% or higher, the patient may qualify for future screening with alternating mammogram and breast MRI. Electronically signed and approved by: Garth Frausto D.O. Radiologis
== END | disposition home or self-care (01) ==
LOC: RADMAMWWP 09:27
PROVIDERS: ATTEND Internal Medicine Critical Care Medicine
DX: R92.323 Mammographic fibroglandular density, bilateral breasts (principal); Z80.3 Family history of malignant neoplasm of breast; Z78.0 Asymptomatic menopausal state; R92.1 Mammographic calcification found on diagnostic imaging of breast
CPT/HCPCS: 77066; G0279; 77062

== ENCOUNTER → 2024-05-13 | Outpatient (CLI) | payer MEDICARE ==
[2024-05-13 10:24] VITALS: BP 187/99; PULSE 60; RESP 16
--- NOTE | 2024-05-13 14:19 | P.PAINPG ---
Objective - Vital Signs Vital signs: Vital Signs Temp Pulse 60 05/13/24 10:19 Resp 16 05/13/24 10:19 BP 187/99 05/13/24 10:19 Pulse Ox 94 L 05/13/24 10:19 FiO2 Intake & Output 05/12/24 05/13/24 05/13/24 18:59 06:59 18:59 Weight 96.162 kg PQRS Measure Charge Sheet Mode of Arrival: Ambulatory Comment: A 64 yr old female with a history of severe and chronic LBP > 2 yr secondary to lumbar DDD, spondylosis and facet arthropathy without myelopathy presents today for evaluation. Pain level is provoked at 8 /10 in intensity, constant, localized in the lumbar spine, predominantly axial, crushing/ tingling in character w occasional shooting towards the RLE. Pain is provoked by standing/ walking for periods of 5 min or more. Pain is alleviated with PT x 1 wk in May 2023 which provoked too much pain, physician guided home exercise regimen daily since May 2023, heat & ice as tolerated, medications, topical, sitting and rest. Pt can not take NSAIDs due to a past anaphylactic reaction, Dilaudid due to tachycardia side effect, or Morphine due to hypotension side effect. Interventional pain procedures completed include Denies Patient is currently on Tylenol Arthritis, Lidoderm 5% & Flexeril from Dr Maynard Patient denies any side effects of the medication(s), denies excessive drowsiness or sleepiness, denies suicidal ideation and reports that the current pain medication is helping to control the pain and improve activities of daily living. Patient denies any motor or sensory deficits. Patient denies any fever or night sweats, denies any change in the bowel movements or urination. Physical Examination: -Constitutional: Cooperative. Not in acute distress . - Neurologic: Cranial nerve II to XII intact. No focal neurological deficits. - Psychatric: Alert & oriented x 3. Matching mood & appropriate affect. Judgment and insight intact. - Musculoskeletal: Cervical spine: Muscle bulk/ tone/ strength in the bilateral upper extremities normal Vertebral body tenderness to palpation over Spurling test positive Distraction test positive Facet loading test positive Thoracic spine Muscle bulk / tone/ strength in the bilateral paraspinal muscles normal Vertebral body tender to palpation over Facet loading test positive Lumbar spine: Motor bulk/ tone/ strength lower extremities , thigh and legs : 5/5 Deep tendon reflexes : Normal Knee Jerk. Normal Ankle Jerk . Vertebral body tenderness to palpation over L4 Jacques test positive BL L4-L5 Lumbar Facet Loading Test positive Straight Leg Raise: positive at 30 degrees right side/ left side Gaenslen's Test positive Sacral spine : Severe tenderness over the Sacroiliac joint: right side / left side Range of motion: Flexion of the lumbar spine <60 degrees Range of motion: Extension of the lumbar spine <20 degrees Gaenslen's Test positive Richard test: positive right side / left side Thigh Thrust Test Sacral Thrust Test Assessment and plan: Chronic low back pain secondary to lumbar degenerative disc disease, spondylosis with facet arthropathy without myelopathy Recommendation of PANKAJ L4-L5 #1. May need a series of injections, up to 3 within a 6 mo period, for optimal pain relief. Risks, benefits of procedure discussed and pt verbalized understanding. Protocol for discontinuation/ continuation of medications marisela procedure discussed. All patient questions answered I have spent less than 30 minutes on patient care today. Dr Burgess was available by phone for the evaluation of this patient. The time was used to review the medical records including relevant urine studies and Prescription history (MAPs), review of the available imaging, evaluation and examination of the patient, coordination of care with the medical staff and if applicable referring physicians, as well as creation of the medical record PQRS Narrative: Smoking Status Never smoker Blood Pressure 187/99 Scale Used Numeric (1 - 10) Hx Alcohol Use (MH) Yes Home Medications: Ambulatory Orders Levothyroxine Sodium [Synthroid] 100 mcg PO QAM 11/01/15 Ergocalciferol (Vitamin D2) [Vitamin D2] 50,000 unit PO MO 12/08/18 Fluticasone Nasal [place] [Flonase Nasal [place]] 2 spray EA NOSTRIL BID PRN 12/08/18 Montelukast [Singulair] 10 mg PO HS 05/06/19 Acetaminophen [Tylenol Extra Strength] 1,000 mg PO DIRECTED PRN 04/09/21 Omeprazole/Sodium Bicarbonate [Zegerid 20 mg Capsule] 1 each PO BID PRN 04/09/21 Cyclobenzaprine [Flexeril] 5 mg PO TID PRN #15 tablet 08/04/22 Lidocaine 5% Patch [Lidoderm] 1 patch TOPICAL DAILY 14 Days #14 patch 08/04/22 Cyclobenzaprine [Flexeril] 5 mg PO TID #45 tablet 09/19/22 cefaDROXiL [Duricef] 500 mg PO Q12HR 3 Days #6 cap 09/19/22 traMADol HCL 50 mg PO Q6H PRN 7 Days #28 tab 09/19/22 HYDROcodone/APAP 5-325MG [[place] 5-325] 1 tab PO Q4HR PRN 3 Days #15 tab 04/21/23 Controlled Substance Measures - Controlled Substance Measures Is patient prescribed a controlled substance at discharge?: No
== END | disposition home or self-care (01) ==
LOC: PNWHC3 09:58
PROVIDERS: ATTEND Specialist
DX: M43.16 Spondylolisthesis, lumbar region (principal); M51.36 Other intervertebral disc degeneration, lumbar region; M47.816 Spondylosis without myelopathy or radiculopathy, lumbar region; M48.061 Spinal stenosis, lumbar region without neurogenic claudication; Z88.6 Allergy status to analgesic agent; Z88.5 Allergy status to narcotic agent; Z88.8 Allergy status to other drugs, medicaments and biological substances
CPT/HCPCS: 99211

== ENCOUNTER 2024-06-17 10:16 | Day surgery (SDC) | payer MEDICARE ==
[2024-06-17 10:36] VITALS: RESP 15; TEMP 98.2
[2024-06-17] MEDS ORDERED: IOPAMIDOL M200 10 ML VIAL ONE (10:59)
[2024-06-17] MEDS ORDERED: methylPREDNISolone ACETATE 80 MG/ML 1 ML VIAL ONE (10:59)
--- NOTE | 2024-06-17 11:07 | P.PCN ---
Date of Procedure: 06/17/24 Procedure(s) Performed: PREOPERATIVE DIAGNOSIS: 1- Lumbar Degenerative Disc Diseases 2-Lumbar spondylosis with Facet arthropathy without myelopathy. 3-compression fracture lumbar spine POSTOPERATIVE DIAGNOSIS: 1-lumbar degenerative disc disease. 2-lumbar spondylosis with facet arthropathy without myelopathy. 3-compression fracture lumbar spine PROCEDURE 1. Lumbar epidural steroid injection under fluoroscopic guidance at the L4-5 level. (Fluoroscopy imaging was available in radiology department) 2. Lumbar epidurogram. ANESTHESIA: Lidocaine 1% 3 and then only. EBL: Minimal PROCEDURE INDICATION: The patient with low back pain and radiculitis symptoms unresponsive to conservative treatment. Fluoroscopy was used to optimize visualization of the needle placement and to maximize safety. PROCEDURE DESCRIPTION / TECHNIQUE: The patient was seen and identified in the preoperative area. Risks, benefits, complications including but not limited to infections ,bleeding ,allergic reaction to the medications ,nerve damage and not complete pain releife , and alternatives were discussed with the patient. The patient agreed to proceed with the procedure and signed the consent, and vital signs were stable. Patient was taken to the OR and time out was completed. The patient was placed in the prone position on procedure table and a pillow was placed under the abdomen to reduce lumbar lordosis. The lumbosacral area was prepped and draped in the usual sterile fashion.ere closely monitored during the procedure. Vital signs was monitered during the entire procedure. Using anterior-posterior fluoroscopy, the L4-5 interlaminar space was identified and the skin over this site was marked and then infiltrated with 1% lidocaine subcutaneously. Subsequently, a 18-gauge 6 inches long Tuohy epidural needle was inserted and advanced toward the epidural space using the ``Loss of resistance technique and guided by AP and lateral fluoroscopy. The correct needle position in the epidural space was verified with the injection of 2 mL of the water soluble contrast dye Isovue 200 contrast and observing an excellent epidurogram with the epidural spread of the dye, after negative aspiration for blood and CSF and in the absence of paresthesias. Again after negative aspiration, a 6 ml mixture containing 60 mg of Depo-medrol ( Preservetive Free ), and 2 ml of preservative free Normal Saline, and 2 ml of preservative free lidocaine 1% solution was injected and a washout of epidurogram was seen. Needle was withdrawn intact, skin was cleansed, and bandages were applied. COMPLICATIONS: None DISPOSITION / PLANS: The patient was placed in a supine position and transferred to the recovery area in a stable condition for observation. There was no evidence of lower extremity motor or sensory deficit after the procedure. Patient was discharged from the recovery room after meeting discharge criteria. Home discharge instructions were given to the patient by the staff. The patient was reexamined prior to discharge. The patient will schedule a follow up in the clinic in 2-4 weeks.
--- NOTE | 2024-06-17 11:26 | FL ---
Fluoroscopy History: BRANDON TAYLOR [place] time 2.6 sec DAP .[id number]
[2024-06-17 11:36] VITALS: BP 148/86; PULSE 62
== END 2024-06-17 11:45 | disposition home or self-care (01) ==
LOC: ORPAIN 10:16
PROVIDERS: ATTEND Specialist
DX: M47.26 Other spondylosis with radiculopathy, lumbar region (principal); M51.16 Intervertebral disc disorders with radiculopathy, lumbar region; M48.56XA Collapsed vertebra, not elsewhere classified, lumbar region, initial encounter for fracture; Z88.6 Allergy status to analgesic agent; Z88.8 Allergy status to other drugs, medicaments and biological substances; Z88.5 Allergy status to narcotic agent
CPT/HCPCS: 62323; Q9966; J1010

== ENCOUNTER → 2024-07-08 | Outpatient (CLI) | payer MEDICARE | LOC: PNWHC3 10:45 | PROVIDERS: ATTEND Specialist | DX: M54.16 Radiculopathy, lumbar region | CPT/HCPCS: 99211 ==

== ENCOUNTER → 2024-08-13 | Outpatient (CLI) | payer MEDICARE ==
[2024-08-13 14:54] LABS: HGB 14.8 g/dL (12.0-15.0); MCH 31.8 pg (27.0-32.0); MCHC 32.9 g/dL (32.0-37.0); MCV 96.6 FL (80.0-97.0); Mean Platelet Volume 10.7 FL (9.5-12.2); NRBC Per 100 WBC 0 X 10*3/uL (0.00-0.01); Platelet Count 381 X 10*3/uL (140-440); RBC 4.66 X 10*6/uL (4.10-5.20); RDW 12.1 % (11.5-14.5); WBC 7.11 X 10*3/uL (4.50-10.00)
[2024-08-13 15:35] LABS: ALT 22 U/L (8-44); AST 19 U/L (13-35); Albumin 4.3 g/dL (3.8-4.9); Albumin/Globulin Ratio 1.48 Ratio (1.60-3.17); Alkaline Phosphatase 105 U/L (41-126); BUN/Creat Ratio 17.33 Ratio (12.00-20.00); Blood Urea Nitrogen 15.6 mg/dL (9.0-27.0); Calcium 9.7 mg/dL (8.7-10.3); Carbon Dioxide 25.6 mmol/L (21.6-31.8); Chloride 102 mmol/L (96-109); Chol/HDL Ratio 3.94 Ratio; Globulin 2.9 g/dL (1.6-3.3); Glucose 148 mg/dL (70-110); LDL Cholesterol,Calculated 139.7 mg/dL (0.0-131.0); Potassium 4.5 mmol/L (3.5-5.5); Sodium 140 mmol/L (135-145); T4, Free (Free Thyroxine) 1.19 ng/dL (0.80-1.80); Total Bilirubin 0.4 mg/dL (0.3-1.2); Total Protein 7.2 g/dL (6.2-8.2)
[2024-08-13 15:38] LABS: NT-Pro-B-Type Natriuretic Pept 45 pg/mL (0-125)
== END | disposition home or self-care (01) ==
LOC: LABWHC1 07:58
PROVIDERS: ATTEND Internal Medicine Critical Care Medicine
DX: Z00.00 Encounter for general adult medical examination without abnormal findings (principal); E11.22 Type 2 diabetes mellitus with diabetic chronic kidney disease; N18.9 Chronic kidney disease, unspecified; D63.1 Anemia in chronic kidney disease; E06.3 Autoimmune thyroiditis; E55.9 Vitamin D deficiency, unspecified; I25.10 Atherosclerotic heart disease of native coronary artery without angina pectoris; I50.9 Heart failure, unspecified; E78.5 Hyperlipidemia, unspecified
CPT/HCPCS: 36415; 80053; 80061; 82306; 83036; 83880; 84439; 84443; 85027; 86141

== ENCOUNTER 2024-08-29 09:55 | Inpatient (IN) | payer MEDICARE ==
--- NOTE | 2024-08-29 10:35 | ED ---
General Adult HPI - General Chief complaint: Recheck/Abnormal Lab/Rx Stated complaint: Neuro Symp Time Seen by Provider: 08/29/24 10:05 Source: patient, RN notes reviewed, old records reviewed Mode of arrival: ambulatory Limitations: no limitations - History of Present Illness Initial comments: 64-year-old female presenting for evaluation of stuttering speech. Patient states symptoms began at approximately 11 PM yesterday evening. She states she has had similar episodes in the past which were related to anxiety. She also noted to twitching on the right side of her face. No facial droop. No limb symptoms. Patient states she was recently diagnosed with diabetes and has had a difficult time adjusting to this diagnosis and the dietary changes. She denies any other stress. Patient states she has had intermittent word finding difficulty over the past several months. She has been seen by cardiology and received an outpatient workup and was recommended to see neurology regarding the symptoms. - Related Data Home Medications Medication Instructions Recorded Confirmed Levothyroxine Sodium [Synthroid] 100 mcg PO QAM 11/01/15 06/17/24 Fluticasone Nasal [place] [Flonase 2 spray EA NOSTRIL DIRECTED PRN 12/08/18 06/17/24 Nasal [place]] Montelukast [Singulair] 10 mg PO HS 05/06/19 06/17/24 Acetaminophen [Tylenol Extra 1,000 mg PO DIRECTED PRN 04/09/21 06/17/24 Strength] ALPRAZolam [Xanax] 0.5 mg PO DAILY PRN 06/09/24 06/17/24 Otc Zegrid 20 mg PO DAILY 06/16/24 06/17/24 Previous Rx's Medication Instructions Recorded Cyclobenzaprine [Flexeril] 5 mg PO TID PRN #15 tablet 08/04/22 Allergies Allergy/AdvReac Type Severity Reaction Status Date / Time aspirin Allergy Rash/Hives Verified 08/29/24 10:02 morphine Allergy Blood Verified 08/29/24 10:02 pressure and heart rate dropped after injection NSAIDS (Non-Steroidal Allergy Rash/Hives, Verified 08/29/24 10:02 Anti-Inflamma facial swelling and redness hydromorphone [From Dilaudid] AdvReac made pt Verified 08/29/24 10:02 anxious, scared, felt like heart racing, dizziness. steroids AdvReac cannot Uncoded 08/29/24 10:02 tolerate high doses Review of Systems ROS Statement: Those systems with pertinent positive or pertinent negative responses have been documented in the HPI. ROS Other: All systems not noted in ROS Statement are negative. Past Medical History Past Medical History: GERD/Reflux, Osteoarthritis (OA), Thyroid Disorder Additional Past Medical History / Comment(s): Small hiatal hernia, IBS, white coat hypertension. Back pain from previous fall. seasonal allergies. hashimotos History of Any Multi-Drug Resistant Organisms: None Reported Past Surgical History: Appendectomy, Cholecystectomy, Hysterectomy, Orthopedic Surgery Additional Past Surgical History / Comment(s): bilateral rotator cuff repair x2, surg. for back fx Past Anesthesia/Blood Transfusion Reactions: Motion Sickness, Postoperative Nausea & Vomiting (PONV) Additional Past Anesthesia/Blood Transfusion Reaction / Comment(s): BP can go low at times. Past Psychological History: Anxiety Smoking Status: Former smoker Past Alcohol Use History: Rare Past Drug Use History: None Reported - Past Family History Mother Family Medical History: Cancer Father Family Medical History: Cancer General Exam Limitations: no limitations General appearance: alert, in no apparent distress Head exam: Present: atraumatic, normocephalic Eye exam: Present: normal appearance, PERRL ENT exam: Present: normal exam Neck exam: Present: normal inspection. Absent: tenderness, meningismus Respiratory exam: Present: normal lung sounds bilaterally. Absent: respiratory distress, wheezes Cardiovascular Exam: Present: regular rate, normal rhythm GI/Abdominal exam: Present: soft. Absent: distended, tenderness, guarding Neurological exam: Present: alert, oriented X3, CN II-XII intact, other (Intermittent facial twitching and intermittent stuttering. No dysarthria. No aphasia. No facial weakness. NIH is 0). Absent: motor sensory deficit Psychiatric exam: Present: anxious Skin exam: Present: warm, dry, intact Course Vital Signs 08/29/24 08/29/24 09:57 12:02 Temperature 98 F Pulse Rate 94 95 Respiratory 20 20 Rate Blood Pressure 172/103 189/103 O2 Sat by Pulse 96 99 Oximetry - Reevaluation(s) Reevaluation #1: 08/29/24 12:09 Patient reevaluated, speech is fluent without stuttering, no dysarthria, no aph leigh. Medical Decision Making - Medical Decision Making Was pt. sent in by a medical professional or institution (ASHLEY Larkin, DIRECTOR OF [employer]S, urgent care, hospital, or [place] health care facility...) When possible be specific @ -No Did you speak to anyone other than the patient for history (EMS, parent, family, police, friend...)? What history was obtained from this source @ -[Patient's who is at bedside Did you review nursing and triage notes (agree or disagree)? Why? @ -I reviewed and agree with nursing and triage notes Were old charts reviewed (outside hosp., previous admission, EMS record, old EKG, old radiological studies, urgent care reports/EKG's, [place] health care facility records)? Report findings @ -[No old charts were reviewed Differential CVA: Ischemic stroke, hemorrhagic stroke, brain tumor, atypical migraine, Wernicke's encephalopathy, seizure, multiple sclerosis, meningitis, encephalitis, hypoglycemia, Guillain-Burkett, electrolytes disturbance, myasthenia gravis.... This is not meant to be an all-inclusive list. EKG interpreted by me (3pts min.). @ -Sinus rhythm rate of 85, WV interval 156, QRS duration 82, QTc [address] segment elevation. X-rays interpreted by me (1pt min.). @ -None done CT interpreted by me (1pt min.). @CT brain negative for intracranial hemorrhage or mass effect U/S interpreted by me (1pt. min.). @ -None done What testing was considered but not performed or refused? (CT, X-rays, U/S, labs)? Why? @ -None What meds were considered but not given or refused? Why? @ -None Did you discuss the management of the patient with other professionals (professionals i.e. ASHLEY Larkin, DIRECTOR OF [employer], lab, RT, psych nurse, social media manager, assessment consultant, teacher, airfield services officer, machine adjuster leader case trim)? Give summary @ -[facility] Was smoking cessation discussed for >3mins.? @ -No Was critical care preformed (if so, how long)? @ -No Were there social determinants of health that impacted care today? How? (Homelessness, low income, unemployed, alcoholism, drug addiction, transportation, low edu. Level, literacy, decrease access to med. care, detention, rehab)? @ -No Was there de-escalation of care discussed even if they declined (Discuss DNR or withdrawal of care, Hospice)? DNR status @ -No What co-morbidities impacted this encounter? (DM, HTN, Smoking, COPD, CAD, Cancer, CVA, ARF, Chemo, Hep., AIDS, mental health diagnosis, sleep apnea, morbid obesity)? @Hypertension diabetes Was patient admitted / discharged? Hospital course, mention meds given and route, prescriptions, significant lab abnormalities, going to OR and other perti nent info. @ -64-year-old female with stuttering speech, facial twitching. Patient has mostly clear speech with intermittent stuttering followed by facial twitching. She states she has had some issues preceding the past several months including word finding difficulty at times and a right upper extremity tremor. She has no prior history of TIA or CVA. She has an NIH of 0 at the time my evaluation. And at the time of reevaluation in the emergency department her speech is fluent without facial twitching. She is not hypertensive. Head CT is negative for acute process. She has normal laboratory testing. She is in sinus rhythm. She will benefit from neurology consultation and MRI. She is admitted to [facility], Dr. Guerrero will admit Undiagnosed new problem with uncertain prognosis? @ -No Drug Therapy requiring intensive monitoring for toxicity (Heparin, Nitro, Insulin, Cardizem)? @ -No Were any procedures done? @ -No Diagnosis/symptom? @ -Stuttering speech and right facial twitching Acute, or Chronic, or Acute on Chronic? @Acute Uncomplicated (without systemic symptoms) or Complicated (systemic symptoms)? @ -Default Side effects of treatment? @ -No Exacerbation, Progression, or Severe Exacerbation? @ -No Poses a threat to life or bodily function? How? (Chest pain, [place], [place], pneumonia, PE, COPD, DKA, ARF, appy, cholecystitis, CVA, Diverticulitis, Homicidal, Suicidal, threat to staff... and all critical care pts) @ -Yes, CVA - Lab Data Result diagrams: 08/29/24 10:50 08/29/24 11:16 Lab Results 08/29/24 08/29/24 08/29/24 Range/Units 10:50 10:50 11:16 WBC 6.7 (3.8-10.6) k/uL RBC 4.63 (3.80-5.40) m/uL Hgb 15.0 (11.4-16.0) gm/dL Hct 43.9 (34.0-46.0) % MCV 94.9 (80.0-100.0) fL MCH 32.4 (25.0-35.0) pg MCHC 34.2 (31.0-37.0) g/dL RDW 12.5 (11.5-15.5) % Plt Count 408 (150-450) k/uL MPV 9.4 Neutrophils % 63 % Lymphocytes % 24 % Monocytes % 7 % Eosinophils % 4 % Basophils % 1 % Neutrophils # 4.2 (1.3-7.7) k/uL Lymphocytes # 1.6 (1.0-4.8) k/uL Monocytes # 0.5 (0-1.0) k/uL Eosinophils # 0.2 (0-0.7) k/uL Basophils # 0.1 (0-0.2) k/uL PT 11.6 (10.0-12.5) sec INR 1.1 (<1.2) APTT 22.4 (22.0-30.0) sec Sodium 141 (137-145) mmol/L Potassium 4.4 (3.5-5.1) mmol/L Chloride 106 (98-107) mmol/L Carbon Dioxide 28 (22-30) mmol/L Anion Gap 7 mmol/L BUN 13 (7-17) mg/dL Creatinine 0.87 (0.52-1.04) mg/dL Est GFR (CKD-EPI)AfAm 81 (>60 ml/min/1.73 sqM) Est GFR (CKD-EPI)NonAf 70 (>60 ml/min/1.73 sqM) Glucose 102 H (74-99) mg/dL Calcium 10.1 (8.4-10.2) mg/dL Magnesium 1.9 (1.6-2.3) mg/dL Total Bilirubin 0.6 (0.2-1.3) mg/dL AST 32 (14-36) U/L ALT 33 (4-34) U/L Alkaline Phosphatase 89 (38-126) U/L Total Protein 7.8 (6.3-8.2) g/dL Albumin 4.8 (3.5-5.0) g/dL Disposition Clinical Impression: TIA (transient ischemic attack), Stuttering Disposition: ADMITTED IP TO THIS HOSP Condition: Stable Is patient prescribed a controlled substance at d/c from ED?: No Referrals: None,Stated [Primary Care Provider] - 1-2 days Time of Disposition: 12:18
[2024-08-29 11:07] LABS: Basophils # (A) 0.1 k/uL (0-0.2); Basophils % (A) 1 %; Eosinophils # (A) 0.2 k/uL (0-0.7); Eosinophils % (A) 4 %; HCT 43.9 % (34.0-46.0); Lymphocytes # (A) 1.6 k/uL (1.0-4.8); Lymphocytes % (A) 24 %; MCH 32.4 pg (25.0-35.0); MCHC 34.2 g/dL (31.0-37.0); MCV 94.9 fL (80.0-100.0); Mean Platelet Volume 9.4; Monocytes # (A) 0.5 k/uL (0-1.0); Monocytes % (A) 7 %; Neutrophils # (A) 4.2 k/uL (1.3-7.7); Neutrophils % (A) 63 %; Platelet Count 408 k/uL (150-450); RBC 4.63 m/uL (3.80-5.40); RDW 12.5 % (11.5-15.5); WBC 6.7 k/uL (3.8-10.6)
[2024-08-29] MEDS: LORazepam 2 MG/ML INJ IV STA (11:18)
[2024-08-29] MEDS: LORazepam 1 MG TAB PO STA (11:24)
--- NOTE | 2024-08-29 11:25 | CT ---
EXAMINATION TYPE: CT brain wo con DATE OF EXAM: 08/29/2024 COMPARISON: None INDICATION: RIGHT FACIAL TWITCHING DLP: 1125.7 mGycm, Automated exposure control for dose reduction was used. CONTRAST: None CT of the brain is performed utilizing 3 mm thick sections through the posterior fossa and 3 mm thick sections through the remaining calvarium. Study is performed within 24 hours of arrival to the hosp [facility]. No abnormal hyperdensity is present to suggest an acute intracranial hemorrhage. No mass lesion is evident. No acute infarcts are evident. Ventricles and sulci are appropriate for the patient age. Paranasal sinuses and mastoid air cells within the [id number] are clear. Right septal spurring is present. Some right septal deviation is present. IMPRESSION: 1. No acute intracranial process. Follow up MRI can be performed as clinically indicated. [facility], Workstation: [facility], 08/29/2024 11:22 AM
[2024-08-29 11:42] LABS: INR 1.1 (<1.2); Partial Thromboplastin Time 22.4 sec (22.0-30.0); Prothrombin Time 11.6 sec (10.0-12.5)
[2024-08-29 11:42] LABS: ALT 33 U/L (4-34); AST 32 U/L (14-36); African American GFR (CKD) 81 (>60 ml/min/1.73 sqM); Albumin 4.8 g/dL (3.5-5.0); Alkaline Phosphatase 89 U/L (38-126); Anion Gap 7 mmol/L; Blood Urea Nitrogen 13 mg/dL (7-17); Calcium 10.1 mg/dL (8.4-10.2); Carbon Dioxide 28 mmol/L (22-30); Chloride 106 mmol/L (98-107); Glucose 102 mg/dL (74-99); Magnesium 1.9 mg/dL (1.6-2.3); Non-African American GFR(CKD) 70 (>60 ml/min/1.73 sqM); Potassium 4.4 mmol/L (3.5-5.1); Sodium 141 mmol/L (137-145); Total Bilirubin 0.6 mg/dL (0.2-1.3); Total Protein 7.8 g/dL (6.3-8.2)
[2024-08-29] MEDS: SODIUM CHLORIDE 0.9% 1,000 ML IV SCH (13:00)
--- NOTE | 2024-08-29 14:04 | US ---
EXAMINATION TYPE: US carotid duplex BILAT DATE OF EXAM: 08/29/2024 COMPARISON: NONE CLINICAL INDICATION: Female, 64 years old with history of Stenosis; Stenosis per order. Diabetes TECHNIQUE: Grayscale, color Doppler and spectral Doppler evaluation of the bilateral carotid systems and vertebral arteries.Indirect Doppler criteria was utilized. FINDINGS: EXAM MEASUREMENTS: RIGHT: Peak Systolic Velocity (PSV) cm/sec ----- Right CCA: 63.6 ----- Right ICA: 121.1 ----- Right ECA: 69.1 ICA/CCA ratio: 1.9 RIGHT: End Diastole cm/sec ----- Right CCA: 14.2 ----- Right ICA: 45.8 ----- Right ECA: 12.0 LEFT: Peak Systolic Velocity (PSV) cm/sec ----- Left CCA: 73.5 ----- Left ICA: 94.1 ----- Left ECA: 68.0 ICA/CCA ratio: 1.3 LEFT: End Diastole cm/sec ----- Left CCA: 20.8 ----- Left ICA: 41.3 ----- Left ECA: 17.5 VERTEBRALS (direction of flow): Right Vertebral: Unable to visualize Left Vertebral: Antegrade Rhythm: Normal [employer] NOTES: Intimal thickening seen bilaterally. Some plaque seen within bilateral bulbs. No e levated velocities. Tortuous right ICA. IMPRESSION: 1. Atheromatous plaquing without significant flow-limiting stenosis based on velocities. Criteria for Assigning % of Stenosis / Diameter reduction (Estimation based on the indirect measurements of the internal carotid artery velocities (ICA PSV). 1. Normal (no stenosis)=ICA PSV < 125 cm/s: ratio < 2.0: ICA EDV<40 cm/s. 2. Less than 50% stenosis=ICA PSV < 125 cm/s: ratio < 2.0: ICA EDV<40 cm/s. 3. 50 to 69% stenosis=ICA PSV of 125 to 230 cm/s: ration 2.0 ? 4.0: ICA EDV 40-100 cm/s. 4. Greater than 70% stenosis to near occlusion= ICA PSV > 230 cm/s: ratio > 4.0: ICA EDV > 100 cm/s. 5. Near occlusion= ICA PSV velocities may be low or undetectable: variable ratio and ICA EDV. 6. Total occlusion=unable to detect flow. [facility], Workstation: [facility], 08/29/2024 2:02 PM
[2024-08-29] MEDS ORDERED: DEXTROSE 50% SYRINGE 50 ML IVP PRN ×2 (15:01)
--- NOTE | 2024-08-29 15:01 | P.HPIM ---
History of Present Illness H&P Date: 08/29/24 Patient is a 64-year-old female with recently diagnosed type 2 diabetes, Alfie's, and lumbar spinal stenosis who presents to the emergency department with complaints of new onset ataxia. On arrival to the ER she underwent extensive evaluation. Initial vital signs were remarkable for a blood pressure of 172/103. Initial laboratory analysis with including CBC, coags, and CMP were unremarkable. Initial CT of the head demonstrated no acute process. Initial EKG showed sinus rhythm at 85 bpm carotid Doppler showed no significant flow- limiting lesions. In the emergency department she was administered Ativan 1 mg p.o. Patient seen and examined at bedside. She reports significant symptoms since the last week in May or first week in June. She reports that she had been having some bradycardic episodes and underwent a nuclear stress test and since that time has been having developing neurologic changes. Initially it was felt to be due to anxiety. She reports twitching on the right side of her face and her right shoulder which was increasing today. This is associated with difficulty speaking. She also reports difficulty thinking of her words and feeling foggy. She reports right sided peripheral visual changes that are black spots. She reports sometimes she has episodes of difficulty speaking with twitching and then feels as though she loses 2 to 3 minutes and is tired and wants to take a nap afterwards. She denies any loss of bowel or bladder control during these episodes. She has no history of neurologic disorder or seizures. Today was the first time she noted difficulty walking. She also reports difficulty with word comprehension. She underwent stress test in May right before these symptoms started and had a lumbar steroid injection 2 weeks prior to that. Per daughter had similar symptoms of twitching after kyphosis surgery She does report that she follows with Dr. Mike send for her spinal stenosis and he felt as though her cervical spine also had changes because she was having some right hand weakness. She was diagnosed with type 2 diabetes 2 weeks ago and started on metformin. Her last TSH was severely abnormal and her Synthroid was increased. She has no other complaints currently. Vital signs reviewed General: nontoxic, no distress, appears at stated age Derm: warm, dry Eyes: EOMI, no lid lag, anicteric sclera, pupils equal round reactive to light ENT: Nose and ears atraumatic Cardiovascular: S1S2 reg, no murmur, no edema Lungs: clear to auscultation bilateral, no rhonchi, no rales, no wheeze, no accessory muscle use Abdominal: soft, nontender to palpation, no guarding Ext: no gross muscle atrophy, no contractures Neuro: Bilateral upper extremity weakness which is equal at 4/5, decreased light sensation in right upper extremity and right face, loss of nasal labial fold on the right, decreased abduction of the right eye, Right tongue deviation. Facial twitching on the right. Psych: Alert, oriented, appropriate affect Assessment/Plan: Right sided facial twitching, dysarthria, and shuffling gait -Check MRI brain, EEG, neurochecks, consult neurology. Case discussed with Dr. Matos. -Will hold off on MRI of the cervical spine as would not explain facial symptoms. -Recheck TSH. -Telemetry Recently diagnosed diabetes -Hold metformin, sliding scale insulin -Alfie's thyroiditis -Recheck TSH -Resume Synthroid Imaging: As per HPI Data Review: As per HPI The patient is admitted with an anticipated greater than 2 midnight stay for evaluation of right sided facial dressing with concern for seizures. Surrogate decision-maker: CODE STATUS: Full DVT prophylaxis: SCDs Anticipated discharge date: Pending clinical course Anticipated discharge place: Pending clinical course This dictation was prepared using [employer] voice recognition software. Though every attempt is made to correct errors during dictation some may still exist. Past Medical History Past Medical History: GERD/Reflux, Osteoarthritis (OA), Thyroid Disorder Additional Past Medical History / Comment(s): Small hiatal hernia, IBS, white coat hypertension. Back pain from previous fall. seasonal allergies. hashimotos History of Any Multi-Drug Resistant Organisms: None Reported Past Surgical History: Appendectomy, Cholecystectomy, Hysterectomy, Orthopedic Surgery Additional Past Surgical History / Comment(s): bilateral rotator cuff repair x2, surg. for back fx Past Anesthesia/Blood Transfusion Reactions: Motion Sickness, Postoperative Nausea & Vomiting (PONV) Additional Past Anesthesia/Blood Transfusion Reaction / Comment(s): BP can go low at times. Past Psychological History: Anxiety Smoking Status: Former smoker Past Alcohol Use History: Rare Past Drug Use History: None Reported - Past Family History Mother Family Medical History: Cancer Father Family Medical History: Cancer Medications and Allergies Home Medications Medication Instructions Recorded Confirmed Type Fluticasone Nasal [place] [Flonase 2 spray EA NOSTRIL HS 12/08/18 08/29/24 History Nasal [place]] Montelukast [Singulair] 10 mg PO HS 05/06/19 08/29/24 History Acetaminophen [Tylenol Arthritis] 650 mg PO HS PRN 08/29/24 08/29/24 History Levothyroxine Sodium [Synthroid] 100 mcg PO DAILY 08/29/24 08/29/24 History metFORMIN HCL [Glucophage] 500 mg PO BID 08/29/24 08/29/24 History Allergies Allergy/AdvReac Type Severity Reaction Status Date / Time aspirin Allergy Rash/Hives Verified 08/29/24 13:07 morphine Allergy Blood Verified 08/29/24 13:07 pressure and heart rate dropped after injection NSAIDS (Non-Steroidal Allergy Rash/Hives, Verified 08/29/24 13:07 Anti-Inflamma facial swelling and redness hydromorphone [From Dilaudid] AdvReac made pt Verified 08/29/24 13:07 anxious, scared, felt like heart racing, dizziness. steroids AdvReac cannot Uncoded 08/29/24 13:07 tolerate high doses Physical Exam Osteopathic Statement: *. No significant issues noted on an osteopathic s tructural exam other than those noted in the History and Physical/Consult. Vitals: Vital Signs Temp Pulse Resp BP Pulse Ox 08/29/24 12:02 95 20 189/103 99 08/29/24 09:57 98 F 94 20 172/103 96 Intake and Output 08/28/24 08/29/24 08/29/24 22:59 06:59 14:59 Other: Weight 96.162 kg Results CBC & Chem 7: 08/29/24 10:50 08/29/24 11:16 Labs: Abnormal Lab Results - Last 24 Hours (Table) 08/29/24 Range/Units 11:16 Glucose 102 H (74-99) mg/dL
[2024-08-29] MEDS: CLOPIDOGREL 75 MG TAB PO STA (16:34)
[2024-08-29 17:36] LABS: Glucose,Whole Blood 139 mg/dL (70-110)
[2024-08-29] MEDS: INSULIN ASPART (NovoLOG) 100 UNIT/ML VIAL SQ SCH (17:58)
[2024-08-29] MEDS: ATORVASTATIN 80 MG TAB PO SCH (20:33)
[2024-08-29] MEDS: ACETAMINOPHEN TAB 325 MG TAB PO PRN (20:37)
[2024-08-29] MEDS: MONTELUKAST 10 MG TAB PO SCH (20:37)
[2024-08-29] MEDS: CYCLOBENZAPRINE 5 MG TAB PO PRN (20:37)
[2024-08-29 21:30] LABS: Glucose,Whole Blood 117 mg/dL (70-110)
[2024-08-29] MEDS: FLUTICASONE NASAL 50MCG/SPRAY 16GM BTL EA NOSTRIL SCH (21:56)
[2024-08-29 23:01] VITALS: RESP 16
--- NOTE | 2024-08-30 00:33 | P.CNNES ---
History of Present Illness Consult date: 08/29/24 Requesting physician: Servando Morales Reason for Consult: Stuttering speech, facial twitching History of Present Illness: Patient is a 64-year-old right-handed female with history of hypertension, diabetes, anxiety disorder came to the hospital this morning at 9:55 AM for facial twitching, tremors and some speech difficulty. Patient states that since she had undergone stress test 2 months ago, she has been having some slurring of words, facial twitching, arm twitching. The symptoms were mild, but got much worse this morning. She wants to make sure, there is nothing "in her", or if it is anxiety or a stroke. She is noticing some slurring of words, facial twitching on the right side, right arm twitching. She has hard to get words out. Patient does have a lot of anxiety. Patient states that she is in the middle of crisis. When asked about what crisis is, patient states that she was just diagnosed with stage II diabetes and she is trying to figure out the diet, Alfie's thyroid disease, and because of these, she "does not want anything amputated". Patient denies depression, but she has been very weepy and cries after this kind of episode. When she starts stuttering. Patient says that after she underwent kyphoplasty of L3 on 08/30/2023, she had similar episode of facial twitching, but was not associated with speech difficulty at that time. The symptoms lasted couple hours and went away. There was no stuttering. Patient denies hypertension. Denies alcohol use. She quit tobacco 43 years ago, was a light smoker. Vital signs on arrival blood pressure 172/103, pulse rate 94 temperature 98.0. Repeat blood pressure 189/103. Blood test shows normal CBC, PT/PTT, normal CMP. EKG shows sinus rhythm. CT head revealed no acute intracranial process. I personally review CT head, agree with the findings. Home medications include Flonase, similar, metformin, levothyroxine and Fle xeril. Review of Systems All pertinent positive and negatives mentioned in the HPI. Otherwise unremarkable. Past Medical History Past Medical History: GERD/Reflux, Osteoarthritis (OA), Thyroid Disorder Additional Past Medical History / Comment(s): Small hiatal hernia, IBS, white coat hypertension. Back pain from previous fall. seasonal allergies. hashimotos History of Any Multi-Drug Resistant Organisms: None Reported Past Surgical History: Appendectomy, Cholecystectomy, Hysterectomy, Orthopedic Surgery Additional Past Surgical History / Comment(s): bilateral rotator cuff repair x2, surg. for back fx Past Anesthesia/Blood Transfusion Reactions: Motion Sickness, Postoperative Nausea & Vomiting (PONV) Additional Past Anesthesia/Blood Transfusion Reaction / Comment(s): BP can go low at times. Past Psychological History: Anxiety Smoking Status: Former smoker Past Alcohol Use History: Rare Past Drug Use History: None Reported - Past Family History Mother Family Medical History: Cancer Father Family Medical History: Cancer Medications and Allergies Home Medications Medication Instructions Recorded Confirmed Type Fluticasone Nasal [place] [Flonase 2 spray EA NOSTRIL HS 12/08/18 08/29/24 History Nasal [place]] Montelukast [Singulair] 10 mg PO HS 05/06/19 08/29/24 History Acetaminophen [Tylenol Arthritis] 650 mg PO HS PRN 08/29/24 08/29/24 History Cyclobenzaprine [Flexeril] 1 tablet PRN 08/29/24 History Levothyroxine Sodium [Synthroid] 100 mcg PO DAILY 08/29/24 08/29/24 History metFORMIN HCL [Glucophage] 500 mg PO BID 08/29/24 08/29/24 History Allergies Allergy/AdvReac Type Severity Reaction Status Date / Time aspirin Allergy Rash/Hives Verified 08/29/24 13:07 morphine Allergy Blood Verified 08/29/24 13:07 pressure and heart rate dropped after injection NSAIDS (Non-Steroidal Allergy Rash/Hives, Verified 08/29/24 13:07 Anti-Inflamma facial swelling and redness hydromorphone [From Dilaudid] AdvReac made pt Verified 08/29/24 13:07 anxious, scared, felt like heart racing, dizziness. steroids AdvReac cannot Uncoded 08/29/24 13:07 tolerate high doses Physical Examination - Vital Signs Vital Signs: Vital Signs Temp Pulse Resp BP Pulse Ox 08/29/24 12:02 95 20 189/103 99 08/29/24 09:57 98 F 94 20 172/103 96 Intake and Output 08/28/24 08/29/24 08/29/24 22:59 06:59 14:59 Other: Weight 96.162 kg Patient is an elderly female, very pleasant, in no acute distress. Patient appears somewhat depressed, as she sometimes cries, becomes emotional. Patient is alert awake oriented to time place and person. Speech and language functions are normal. Patient's sometimes stutters. Patient can name and repeat very well. No aphasia or dysarthria. Attention, concentration and fund of knowledge is adequate. On cranial nerve examination, pupils are equal, round and reacting to light, visual estrella are full on confrontation, with no neglect on double simultaneous stimulation. Extraocular muscles are intact with no nystagmus. Face is symmetric at baseline, and with active testing. Patient sometimes have right facial twitching, which occurs whenever he talk about her facial twitching, then she would twitch a few times. Appears somewhat functional. Patient would protrude the tongue out in the midline, but then deviates to the right, and sometimes she wiggles it [id number]. Appears very functional. Palatal elevation and sensation normal, hearing and shoulder shrug normal, facial sensation normal. On muscle strength testing, there is no pronator drift and the strength is normal in arms and legs distally and proximally. Deep tendon reflexes are symmetric 1+ to 2 and plantars downgoing. Sensory to touch is equal with no neglect on double simultaneous stimulation. Cerebellar function showed no ataxia for [id number] testing. No dysdiadochokinesia. No ataxia for [id number] testing on either side. Tone and bulk of muscles normal. Gait deferred.. On general examination, there is no carotid bruit or murmur, S1-S2 audible. Chest is clear on consultation. Abdomen is soft nontender. No organomegaly, bowel sounds present. Peripheral pulses are present. No peripheral edema. Results - Laboratory Findings CBC and BMP: 08/29/24 10:50 08/29/24 11:16 Abnormal Lab Findings: Abnormal Labs 08/29/24 11:16 Glucose 102 H Assessment and Plan Assessment: * 64-year-old female, presenting with intermittent episodes of right facial tw itching, sometimes slurring, stuttering. Patient does have some inconsistencies in the examination, rule out functional disorder. Rule out TIA versus focal seizure. * Hypertension, not being treated. * Diabetes, recently diagnosed. * Alfie's thyroiditis. * Anxiety disorder Plan: * Agree with current workup including * MRI of the brain, rule out CVA. * EEG, rule out epileptiform activity. * Carotid Doppler revealed atheromatous plaquing without significant flow limiting stenosis. Right vertebral unable to visualize. Left vertebral had antegrade flow. * Check 2-D echo. * Patient has ALLERGY to aspirin. Agree with starting Plavix 75 mg daily. * Hemoglobin A1c 7.4 on 08/13/2024. Patient has been started on metformin recently. IM to address. * Lipid panel with cholesterol 235, LDL 139, HDL 59 and triglycerides 178. Agree with starting high-intensity statins, Lipitor 80 mg. * Check B12, folate. * Dr. Robert Bishop Will resume neurology service on the morning. * Thank you for the consult.
[2024-08-30] MEDS: LEVOTHYROXINE 100 MCG TAB PO SCH (05:50)
[2024-08-30 06:09] LABS: Glucose,Whole Blood 108 mg/dL (70-110)
[2024-08-30] MEDS: CLOPIDOGREL 75 MG TAB PO SCH (08:35)
[2024-08-30 11:30] LABS: Glucose,Whole Blood 131 mg/dL (70-110)
[2024-08-30 11:46] LABS: Chol/HDL Ratio 3.18 Ratio; LDL Cholesterol,Calculated 105.4 mg/dL (0.0-131.0)
[2024-08-30] MEDS: hydrALAZINE HCL 25 MG TAB PO STA (13:07)
[2024-08-30] MEDS: levETIRAcetam 500 MG TAB PO SCH (14:01)
[2024-08-30 16:09] LABS: Glucose,Whole Blood 103 mg/dL (70-110)
--- NOTE | 2024-08-30 17:14 | P.PN ---
Subjective Progress Note Date: 08/30/24 I am Seeing the patient for the first time during this admission. Please refer to Dr. Matos's note for further details It seems according to the patient and her daughter via phone patient is having facial twitching as well as speech difficulty in which she is getting difficulty getting her words out and stuttering for the past few month and worsening. She is having twitching over the right side of the face. She denies of any headache, denies any focal weakness or numbness. She does have underlying history of Alfie's thyroiditis as well as thyroidism, type 2 diabetes that is recently diagnosed. She does have underlying history of depression. Objective - Vital Signs Vital signs: Vital Signs Temp 97.6 F 08/30/24 03:37 Pulse 73 08/30/24 16:01 Resp 16 08/30/24 16:01 BP 173/79 08/30/24 16:01 Pulse Ox 99 08/30/24 16:01 FiO2 Intake & Output 08/29/24 08/30/24 08/30/24 18:59 06:59 18:59 Intake Total 780 Balance 780 Weight 96.162 kg 99.9 kg Intake: Oral 780 Other: Voiding Method Toilet # Voids 1 - Exam General: Lying in bed and is not in acute distress. Neuro: Patient is awake alert oriented to self place and time. Is following simple commands. Appears to have expressive aphasia. No neglect. The pupils are round equal reactive to light. Visual estrella are full to confrontation. Extraocular movements intact. Patient had brief episode of right facial twitching. No facial weakness. Facial sensation is normal to touch. No dysarthria. Tongue is midline moves [id number] without any difficulty Motor strength is 5 out of 5 throughout. Sensation is normal to touch throughout. - Labs CBC & Chem 7: 08/29/24 10:50 08/29/24 11:16 Labs: Abnormal Lab Results - Last 24 Hours (Table) 08/29/24 08/29/24 08/30/24 Range/Units 17:34 21:29 07:10 POC Glucose (mg/dL) 139 H 117 H (70-110) mg/dL Hemoglobin A1c 7.4 H (<=6.0) % Vitamin B12 (200.0-944.0) pg/mL 08/30/24 08/30/24 Range/Units 07:10 11:28 POC Glucose (mg/dL) 131 H (70-110) mg/dL Hemoglobin A1c (<=6.0) % Vitamin B12 177.0 L (200.0-944.0) pg/mL Assessment and Plan Assessment: * 64-year-old female, presenting with intermittent episodes of right facial twitching, with expressive aphasia sometimes slurring, stuttering. Rule seizure vs stroke vs nutritional deficiency (such as B12). I doubt this is TIA. Per Dr. Matos he felt examination was inconsistent and to rule out fun ctional disorder. * Vitamin B12 deficiency of 177 * Very low normal folate of 7.0 * Hypertension, not being treated. * Diabetes, recently diagnosed. * Alfie's thyroiditis. * Anxiety disorder * Depression disorder Plan: * MRI of the brain: pending. I changed from without to with and without. * EEG, rule out epileptiform activity. * Carotid Doppler revealed atheromatous plaquing without significant flow limiting stenosis. Right vertebral unable to visualize. Left vertebral had antegrade flow. * 2-D echo had recent 2D echo at outside facility, therefore will hold off re peat echo from neurological perspective. * I will start the patient on Keppra 500mg bid empirically. I notified the patient and her daughter about side-effects of medication. * Patient has ALLERGY to aspirin. Per Dr. Matos Plavix 75 mg daily. * Hemoglobin A1c 7.4 on 08/13/2024. Patient has been started on metformin recently. IM to address. * Lipid panel with cholesterol 235, LDL 139, HDL 59 and triglycerides 178. Agree with starting high-intensity statins, Lipitor 80 mg. * B12: 177: I spoke with primary attending and he states patient is refuses IM and wants PO. I will defer management to primary team. * folate: 7, I started on folic acid 1mg daily The plan is discussed with patient and her daughter via phone. Also discussed with primary team. Time with Patient: Less than 30
[2024-08-30] MEDS ORDERED: CYANOCOBALAMIN 1,000 MCG/ML 1 ML VIAL IM ONE (17:30)
--- NOTE | 2024-08-30 17:42 | P.PN ---
Subjective Progress Note Date: 08/30/24 Patient is a 64-year-old female with recently diagnosed type 2 diabetes, Alfie's, and lumbar spinal stenosis who presents to the emergency department with complaints of new onset ataxia. On arrival to the ER she underwent extensive evaluation. Initial vital signs were remarkable for a blood pressure of 172/103. Initial laboratory analysis with including CBC, coags, and CMP were unremarkable. Initial CT of the head demonstrated no acute process. Initial EKG showed sinus rhythm at 85 bpm carotid Doppler showed no significant flow- limiting lesions. In the emergency department she was administered Ativan 1 mg p.o. 08/30 Patient was seen and examined. Reports difficulty finding words. Also right sided facial twitching. MRI brain pending. General: non toxic, no distress, appears at stated age Derm: warm, dry Head: atraumatic, normocephalic, symmetric Eyes: EOMI, no lid lag, anicteric sclera Mouth: no lip lesion, mucus membranes moist Cardiovascular: good distal perfusion in all 4 extremities Lungs: breathing comfortably, no accessory muscle use Ext: no gross muscle atrophy, no edema, no contractures Neuro: no focal neuro deficits Psych: Alert, oriented, appropriate affect Based on my assessment of this patient, this patient meets a high complexity level of care. Right sided facial twitching, dysarthria, and shuffling gait -Check MRI brain, EEG, neurochecks, consult neurology. Case discussed with Dr. Bishop. -Low B12 and folic acid. Replacement ordered. -EEG with abnormal activity not seizures, started on Keppra. -Telemetry Recently diagnosed diabetes -Hold metformin, sliding scale insulin Alfie's thyroiditis -Recheck TSH -Resume Synthroid The patient is admitted with an anticipated greater than 2 midnight stay for evaluation of right sided facial dressing with concern for seizures. Surrogate decision-maker: , Daughter CODE STATUS: Full DVT prophylaxis: SCDs Anticipated discharge date: Pending clinical course Anticipated discharge place: Pending clinical course Objective - Vital Signs Vital signs: Vital Signs Temp 97.6 F 08/30/24 03:37 Pulse 73 08/30/24 16:01 Resp 16 08/30/24 16:01 BP 173/79 08/30/24 16:01 Pulse Ox 99 08/30/24 16:01 FiO2 Intake & Output 08/29/24 08/30/24 08/30/24 18:59 06:59 18:59 Intake Total 780 Balance 780 Weight 96.162 kg 99.9 kg Intake: Oral 780 Other: Voiding Method Toilet # Voids 1 - Labs CBC & Chem 7: 08/29/24 10:50 08/29/24 11:16 Labs: Abnormal Lab Results - Last 24 Hours (Table) 08/29/24 08/29/24 08/30/24 Range/Units 17:34 21:29 07:10 POC Glucose (mg/dL) 139 H 117 H (70-110) mg/dL Hemoglobin A1c 7.4 H (<=6.0) % Vitamin B12 (200.0-944.0) pg/mL 08/30/24 08/30/24 Range/Units 07:10 11:28 POC Glucose (mg/dL) 131 H (70-110) mg/dL Hemoglobin A1c (<=6.0) % Vitamin B12 177.0 L (200.0-944.0) pg/mL
[2024-08-30] MEDS: CYANOCOBALAMIN 500 MCG TAB PO SCH (17:44)
[2024-08-30] MEDS: FOLIC ACID 1 MG TAB PO SCH (17:44)
[2024-08-30 20:12] LABS: Glucose,Whole Blood 120 mg/dL (70-110)
--- NOTE | 2024-08-31 03:20 | EEG ---
ELECTROENCEPHALOGRAM REPORT CLINICAL HISTORY: This is a 64-year-old woman with intermittent facial twitching and speech difficulty. The video EEG is obtained to evaluate for seizure epileptiform activity. RELEVANT MEDICATION: The patient is not on any antiseizure medication. EEG TYPE: This is a routine 21-channel EEG with video using the 10/20 electrode placement system. DESCRIPTION: Wakefulness is only obtained. During awake state, the posterior-dominant rhythm consists of [id number] voltage of 12 hertz activity that is well module sustained. There is no physiological stage 2 sleep architecture. There is no focal slowing. Interictal and ictal, there is a questionable suspicious sharply contoured activity over the right temporal, left temporal, but no clear epileptiform discharge or seizure on the EEG. There is myogenic activity over predominantly left temporal, more than the right temporal. ACTIVATION PROCEDURE: Photic stimulation did not evoke a posterior driving response. There is no abnormality during the photic stimulation. Hyperventilation is not performed. CLINICAL CORRELATION: This is an abnormal routine EEG. The background is normal appearance. There is questionable suspicious sharply contoured activity over the right and left temporal that can increase risk for cortical irritability, but there was no clear epileptiform discharge or seizure on the EEG. Clinical correlation is recommended. MMODL / IJN: [id number] / BRIDGER
[2024-08-31 06:11] LABS: Glucose,Whole Blood 119 mg/dL (70-110)
[2024-08-31] MEDS ORDERED: levETIRAcetam IV 1,000 MG in SODIUM CHLORIDE 0.9% 250 ML IVPB ONE (08:46)
[2024-08-31] MEDS: LORazepam 2 MG/ML INJ IV STA (08:56)
--- NOTE | 2024-08-31 10:02 | P.PN ---
Subjective Progress Note Date: 08/31/24 64-year-old female with recently diagnosed type 2 diabetes, Alfie's, and lumbar spinal stenosis who presents to the emergency department with complaints of new onset ataxia. She reports a constellation of symptoms including right sided weakness, right facial twitching and difficulty findings words since she underwent a stress test in January. Symptoms have worsened since then. On arrival to the ER she underwent extensive evaluation. BP 172/103, HR 94, T 98F, RR 20, 96% on RA. CBC, Coag panel, CMP significant for glu 102. Calcium within normal limits. Mag 1.9. Initial CT of the head demonstrated no acute process. Initial EKG showed sinus rhythm at 85 BPM. Carotid Doppler showed no significant flow- limiting lesions. Patient was admitted for further work up and management. Neurology consulted. B12 177 and Folate 7. EEG showed sharp activity over the right and left temporal that can increase the risk for cortical irritability. 08/31 Patient was seen and examined. Patient had a significant episode of aphasia, right sided weakness and facial twitching this morning. She was seen and evaluated at bedside. Answering questions appropriately. With right sided tongue deviation. Orders placed for STAT EEG and Ativan 1 mg IV along with loading dose of Keppra 1g IV. Case discussed with Dr. Bishop as well. MRI brain is pending. BP 131/95, HR 61, RR 16, T 97.7F, 97% on RA. General: non toxic, no distress, appears at stated age Derm: warm, dry Head: atraumatic, normocephalic, symmetric Eyes: EOMI, no lid lag, anicteric sclera Mouth: no lip lesion, mucus membranes moist Cardiovascular: S1S2 reg, no murmur Lungs: CTA bilateral, no rhonchi, no rales, no accessory muscle use Ext: no gross muscle atrophy, no edema, no contractures Neuro: RU and RLE 3-4/5 strength, MIK and LLE 5/5 strength. Right tongue deviation. CN II-XII otherwise grossly intact. Psych: Alert, oriented, appropriate affect Based on my assessment of this patient, this patient meets a high complexity level of care. Right sided facial twitching, aphasia, and right sided weakness CT brain negative for acute findings. Carotid Doppler no significant flow limiting lesions. EEG with sharp activity over the right and left temporal that can increase the risk for cortical irritability. Loading dose of Keppra 1g IV + Ativan 1 mg IV STAT ordered along with EEG STAT. Telemetry monitoring and advanced neurochecks. B12 low at 177 and Folate low at 7. Discussed IM replacement, patient prefers PO. Pending: MRI brain. Recently diagnosed diabetes Insulin sliding scale with accuchecks ACHS and hypoglycemic precautions. Alfie's thyroiditis Resume Synthroid 100 mcg PO QD. Lovenox SQ for DVT prophylaxis. Objective - Vital Signs Vital signs: Vital Signs Temp 97.7 F 08/31/24 08:23 Pulse 61 08/31/24 08:23 Resp 16 08/31/24 08:23 BP 131/95 08/31/24 08:23 Pulse Ox 97 08/31/24 08:23 FiO2 Intake & Output 08/30/24 08/31/24 08/31/24 18:59 06:59 18:59 Intake Total 900 Balance 900 Intake: Oral 900 Other: Voiding Method Toilet # Voids 0 - Labs CBC & Chem 7: 08/29/24 10:50 08/29/24 11:16 Labs: Abnormal Lab Results - Last 24 Hours (Table) 08/30/24 08/30/24 08/30/24 Range/Units 07:10 07:10 11:28 POC Glucose (mg/dL) 131 H (70-110) mg/dL Hemoglobin A1c 7.4 H (<=6.0) % Vitamin B12 177.0 L (200.0-944.0) pg/mL 08/30/24 08/31/24 Range/Units 20:11 06:09 POC Glucose (mg/dL) 120 H 119 H (70-110) mg/dL Hemoglobin A1c (<=6.0) % Vitamin B12 (200.0-944.0) pg/mL
[2024-08-31] MEDS: levETIRAcetam IV 500 MG/5 ML VIAL IVP STA (10:09)
[2024-08-31 11:16] LABS: Glucose,Whole Blood 112 mg/dL (70-110)
--- NOTE | 2024-08-31 16:14 | P.PN ---
Subjective Progress Note Date: 08/31/24 I am following up with the patient and today in the morning she had an episode of right facial twitching according to the nurse as well as a right arm jerking but the patient was alert oriented x 3 responding and episode lasted 15 minutes and after the episode she was somewhat confused according to the nurse. During that early episode she also had stuttering. As a result the patient was given Keppra 1 g once and was given Ativan 1 mg as well as EEG stat is ordered. Patient states that she is doing drastically better currently and she feels her speech is drastically better. agrees that she is doing better currently. Objective - Vital Signs Vital signs: Vital Signs Temp 97.7 F 08/31/24 08:23 Pulse 66 08/31/24 11:23 Resp 16 08/31/24 11:23 BP 176/91 08/31/24 11:23 Pulse Ox 98 08/31/24 11:23 FiO2 Intake & Output 08/30/24 08/31/24 08/31/24 18:59 06:59 18:59 Intake Total 900 180 Balance 900 180 Intake: Oral 900 180 Other: Voiding Method Toilet # Voids 0 1 - Exam General: Lying in bed and is not in acute distress. Neuro: Patient is awake alert oriented to self place and time. Is following simple commands. No aphasia. No neglect. The pupils are round equal reactive to light. Visual estrella are full to con frontation. Extraocular movements intact. No facial weakness. Facial sensation is normal to touch. No dysarthria. Tongue is midline moves [id number] without any difficulty Motor strength is 5 out of 5 throughout. Sensation is normal to touch throughout. - Labs CBC & Chem 7: 08/29/24 10:50 08/29/24 11:16 Labs: Abnormal Lab Results - Last 24 Hours (Table) 08/30/24 08/31/24 08/31/24 Range/Units 20:11 06:09 11:13 POC Glucose (mg/dL) 120 H 119 H 112 H (70-110) mg/dL Assessment and Plan Assessment: * 64-year-old female, presenting with intermittent episodes of right facial twitching, with expressive aphasia sometimes slurring, stuttering. Rule seizure vs stroke vs nutritional deficiency (such as B12). An EEG shows questionable rare suspicious sharply contoured activity over the right and left temporal but no clear epileptiform discharge or seizure. I doubt this is TIA. Per Dr. Matos he felt examination was inconsistent and to rule out functional disorder. Today she had right facial twitching, right upper jerk with stuttering and the episode lasted 15 minutes as a result she was given Ativan 1 mg as well as Keppra 1 g and currently she is doing drastically better. * Vitamin B12 deficiency of 177 * Very low normal folate of 7.0 * Hypertension, not being treated. * Diabetes, recently diagnosed. * Alfie's thyroiditis. * Anxiety disorder * Depression disorder Plan: * MRI of the brain: pending. * EEG on 08/30/2024: The background is normal. There is questionable rare suspicious sharply contoured activity over the right and left temporal which can increase risk for cortical irritability. But there is no clear epile ptiform discharge or seizure on the EEG. * Stat EEG is ordered for today and pending final read. * Carotid Doppler revealed atheromatous plaquing without significant flow limiting stenosis. Right vertebral unable to visualize. Left vertebral had antegrade flow. * 2-D echo had recent 2D echo at outside facility, therefore will hold off repeat echo from neurological perspective. * Continue Keppra 500mg bid empirically which was started on 08/30/2024 and I increased to 750mg bid since had episode today. * Patient has ALLERGY to aspirin. Per Dr. Matos Plavix 75 mg daily. * Hemoglobin A1c 7.4 on 08/13/2024. Patient has been started on metformin recently. IM to address. * Lipid panel with cholesterol 235, LDL 139, HDL 59 and triglycerides 178. Agree with starting high-intensity statins, Lipitor 80 mg. * B12: 177: I spoke with primary attending and he states patient is refuses IM and wants PO. I will defer management to primary team. * folate: 7, I started on folic acid 1mg daily The plan is discussed with patient and her who is at bedside. Also discussed with primary team. Time with Patient: Less than 30
--- NOTE | 2024-08-31 16:20 | MR ---
EXAMINATION TYPE: MR brain wo/w con DATE OF EXAM: 08/31/2024 COMPARISON: CT brain 08/29/2024 HISTORY: Right facial twitching with speech difficulty CONTRAST: Performed utilizing 10 mL intravenous Gadavist gadolinium contrast. TECHNIQUE: Multiplanar, multiecho imaging on a 3.0 Ghazala magnet is performed through the brain. Stud y is performed within 24 hours of arrival to the hospital. The craniovertebral junction is normal. The pituitary is normal. Diffusion-weighted imaging is performed. No abnormal hyperintensity is present to suggest an acute i ntracranial infarct or acute ischemic change. There are multiple scattered punctate areas of hyperintensity on T2 and Inversion Recovery weighted s equences which are non-specific but can be related to chronic white matter microvascular ischemic carlee nges. Differential diagnosis could include vasculitis, multiple sclerosis, Lyme disease. Ventricles and sulci are appropriate for the patient age. No abnormal enhancement evident. IMPRESSION: 1. Chronic appearing scattered multiple bilateral punctate microvascular ischemic type changes. [facility], Workstation: [facility], 08/31/2024 4:18 PM
[2024-08-31 16:25] LABS: Glucose,Whole Blood 203 mg/dL (70-110)
[2024-08-31 16:33] LABS: Glucose,Whole Blood 143 mg/dL (70-110)
[2024-08-31 20:14] LABS: Glucose,Whole Blood 164 mg/dL (70-110)
[2024-08-31 21:24] LABS: ALT 31 U/L (4-34); AST 27 U/L (14-36); Albumin 4.2 g/dL (3.5-5.0); Alkaline Phosphatase 82 U/L (38-126); Bilirubin, Delta 0.2 mg/dL (0.0-0.2); Bilirubin,Unconjugated 0.3 mg/dL (0.0-1.1); Total Bilirubin 0.5 mg/dL (0.2-1.3)
--- NOTE | 2024-09-01 02:37 | EEG ---
ELECTROENCEPHALOGRAM REPORT CLINICAL HISTORY: This is a 64-year-old woman with intermittent facial twitching and today had an episode of facial twitching as well as right arm jerking. The video EEG is obtained to evaluate for seizure epileptiform activity. RELEVANT MEDICATIONS: 1. Keppra. 2. Ativan. EEG TYPE: This is a routine 21-channel EEG with video using the 10/20 electrode placement system. DESCRIPTION: Wakefulness and brief drowsiness are obtained. During awake state, the posterior- dominant rhythm was somewhat hard to assess because of excessive beta activity, but appears 10 to 10.5 hertz activity at some events. There is no physiological stage 2 sleep architecture. There is no focal slowing. There is diffuse excessive beta activity. Interictal and ictal, there is highly suspicious of rare sharp/spike over the left temporal region. No seizures noted during the study. ACTIVATION PROCEDURE: Photic stimulation did not evoke a posterior driving response. There is no abnormality during the photic stimulation. Hyperventilation is not performed. CLINICAL INTERPRETATION: This is an abnormal routine EEG. There is highly suspicious rare left temporal discharges, which can increase risk for focal seizure as well as status epilepticus. Otherwise, no seizures noted during the study. There is no focal slowing. The excessive beta activity is likely due to medication effect (Ativan). Clinical correlation is recommended. MMODL / IJN: [id number] / MTDD
[2024-09-01 02:49] LABS: Rheumatoid Factor, Qnt <15 IU/mL (0-15)
[2024-09-01 05:54] LABS: Glucose,Whole Blood 117 mg/dL (70-110)
[2024-09-01 05:59] LABS: Anti-Smith Ab Interp Negative (Negative); HIV 2 AB Non-Reactive (Non-Reactive); HIV AB P24 Non-Reactive (Non-Reactive); HIV P24 AG Non-Reactive (Non-Reactive)
[2024-09-01 08:29] VITALS: BP 126/81; PULSE 79; TEMP 97.7
[2024-09-01] MEDS: ENOXAPARIN 40 MG/0.4 ML SYRINGE SQ SCH (08:58)
[2024-09-01 11:42] LABS: Glucose,Whole Blood 107 mg/dL (70-110)
--- NOTE | 2024-09-01 12:12 | P.DS ---
Providers Date of admission: 08/29/24 12:15 Expected date of discharge: 09/01/24 Attending physician: Rula Guerrero MD Consults: 08/29/24 12:14 Consult Physician Urgent Consulting Provider: Peyton Matos Consult Reason/Comments: Stuttering speech, facial twitching Do you want consulting provider notified?: Yes Primary care physician: Stated None Hospital Course: 64-year-old female with recently diagnosed type 2 diabetes, Alfie's, and lumbar spinal stenosis who presents to the emergency department with complaints of new onset ataxia. She reports a constellation of symptoms including right sided weakness, right facial twitching and difficulty findings words since she underwent a stress test in January. Symptoms have worsened since then. On arrival to the ER she underwent extensive evaluation. BP 172/103, HR 94, T 98F, RR 20, 96% on RA. CBC, Coag panel, CMP significant for glu 102. Calcium within normal limits. Mag 1.9. CT of the head demonstrated no acute process. EKG showed sinus rhythm at 85 BPM. Carotid Doppler showed no significant flow- limiting lesions. Patient was admitted for further work up and management. Neurology consulted. B12 177 and Folate 7. EEG showed sharp activity over the right and left temporal that can increase the risk for cortical irritability. She was started on Keppra 500 mg PO BID. On 08/31, patient had a significant episode of aphasia, right sided weakness and facial twitching with right sided tongue deviation. Orders placed for STAT EEG and Ativan 1 mg IV along with loading dose of Keppra 1g IV. EEG was not done STAT but did show highly suspicious left temporal discharges. Keppra was increased to 750 mg PO BID. MRI brain w/wo contrast showed chronic appearing scattered multiple bilateral punctate microvascular ischemic type changes, differentials could include vasculitis, MS, Lyme disease, etc. 09/01 Patient was seen and examined. Symptoms improved. Plans of care discussed extensively with patient and family. Discharge Plan: Per [place] law, do not drive or operate heavy machinery until you are 6 months seizure free. Follow up with a Neurologist at a tertiary center for further workup. Follow up with Dr. Felton within 1 week for follow up of labs that were collected here and vitamin B12 replacement. RF, CHAI, SS Ab, Mckeon Ab, SKIDDER LEVER OPERATOR Ab, C3/C4, Syphilis, HIV negative. ANCA, HSV, HTLV, Lyme, Lupus is still pending. I believe her symptoms can be attributed to temporal lobe seizues. Other causes may include B12 deficiency. Her symptoms have improved on Keppra. She also gets fluctuations in her blood pressure which can be elevated during a seizure episode. Other considerations are vasculitis or autoimmune diseases given her history of Alfie's. Plans to continue Keppra on discharge. She is advised to follow up with her PCP Dr. Felton for the pending labs that was collected during this admission. She is advised outpatient follow up with a Neurologist at a tertiary center for MRI of the cer vical/thoracic spine and possibly a lumbar puncture to rule out autoimmune etiologies. Plans to replace B12 with 2000 mcg PO QD. BP 126/81, HR 79, RR 16, T 97.7F, 95% on RA. 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 Patient Condition at Discharge: Stable Plan - Discharge Summary Discharge Rx Participant: Yes New Discharge Prescriptions: New levETIRAcetam [Keppra] 750 mg PO Q12HR #60 tab Folic Acid 1 mg PO DAILY #30 tab Cyanocobalamin [Vitamin B-12] 2,000 mcg PO DAILY #120 tab Continue Fluticasone Nasal Royal [Flonase Nasal Royal] 2 spray EA NOSTRIL HS Montelukast [Singulair] 10 mg PO HS metFORMIN HCL [Glucophage] 500 mg PO BID Levothyroxine Sodium [Synthroid] 100 mcg PO DAILY Acetaminophen [Tylenol Arthritis] 650 mg PO HS PRN PRN Reason: Pain Cyclobenzaprine [Flexeril] 1 tablet PRN PRN Reason: Moderate To Severe Pain (4-10) Discharge Medication List Fluticasone Nasal Royal [Flonase Nasal Royal] 2 spray EA NOSTRIL HS 01/15/19 [History] Montelukast [Singulair] 10 mg PO HS 05/06/19 [History] Acetaminophen [Tylenol Arthritis] 650 mg PO HS PRN 08/29/24 [History] Cyclobenzaprine [Flexeril] 1 tablet PRN 08/29/24 [History] Levothyroxine Sodium [Synthroid] 100 mcg PO DAILY 08/29/24 [History] metFORMIN HCL [Glucophage] 500 mg PO BID 08/29/24 [History] Cyanocobalamin [Vitamin B-12] 2,000 mcg PO DAILY #120 tab 09/01/24 [Rx] Folic Acid 1 mg PO DAILY #30 tab 09/01/24 [Rx] levETIRAcetam [Keppra] 750 mg PO Q12HR #60 tab 09/01/24 [Rx] Follow up Appointment(s)/Referral(s): Jake Felton MD [STAFF PHYSICIAN] - 09/24/24 2:00 pm Activity/Diet/Wound Care/Special Instructions: Per [place] law, do not drive or operate heavy machinery until you are 6 months seizure free. Follow up with a Neurologist at a tertiary center for further workup. Follow up with Dr. Felton within 1 week for follow up of labs that were collected here and vitamin B12 replacement. Discharge Disposition: HOME SELF-CARE
--- NOTE | 2024-09-01 14:23 | P.PN ---
Subjective Progress Note Date: 09/01/24 Following up with the patient and she states she is doing much better compared to a few days ago. Feels her speech and stuttering is drastically improved. Objective - Vital Signs Vital signs: Vital Signs Temp 97.7 F 09/01/24 08:00 Pulse 79 09/01/24 08:00 Resp 16 09/01/24 08:00 BP 126/81 09/01/24 08:00 Pulse Ox 95 09/01/24 08:00 FiO2 Intake & Output 08/31/24 09/01/24 09/01/24 18:59 06:59 18:59 Intake Total 430 0 240 Balance 430 0 240 Weight 98.9 kg Intake: Oral 430 0 240 Other: Voiding Method Toilet # Voids 1 1 - Exam General: Lying in bed and is not in acute distress. Neuro: Patient is awake alert oriented to self place and time. Is following simple commands. No aphasia. No neglect. The pupils are round equal reactive to light. Visual estrella are full to confrontation. Extraocular movements intact. No facial weakness. Facial sensation is normal to touch. No dysarthria. Tongue is midline moves [id number] without any difficulty Motor strength is 5 out of 5 throughout. Sensation is normal to touch throughout. - Labs CBC & Chem 7: 08/29/24 10:50 08/29/24 11:16 Labs: Abnormal Lab Results - Last 24 Hours (Table) 08/31/24 08/31/24 08/31/24 Range/Units 16:23 16:31 20:13 POC Glucose (mg/dL) 203 H 143 H 164 H (70-110) mg/dL 09/01/24 Range/Units 05:50 POC Glucose (mg/dL) 117 H (70-110) mg/dL Assessment and Plan Assessment: * 64-year-old female, presenting with intermittent episodes of right facial twitching, with expressive aphasia sometimes slurring, stuttering. Also yesterday had 15 minute episode of right facial twitching and right arm jerking and appears likely new onset seizure (EEG showed likely suspicious left temporal discharges but no seizure). Did not have any seizures on two routine EEG's--feels her symptoms are drastically better after medication * Vitamin B12 deficiency of 177 * Very low normal folate of 7.0 * Hypertension, not being treated. * Diabetes, recently diagnosed. * Alfie's thyroiditis. * Anxiety disorder * Depression disorder Plan: * EEG on 08/30/2024: The background is normal. There is questionable rare suspicious sharply contoured activity over the right and left temporal which can increase risk for cortical irritability. But there is no clear epileptiform discharge or seizure on the EEG. * Repeat routine EEG on 08/31/2024 is abnormal. There is highly suspicious rare left temporal discharges which can increase risk for focal seizure as well as status epilepticus. Otherwise, no seizure noted during the study. There is no focal slowing. The excessive beta activity is likely due to medication effect (Ativan). * Patient was started on this hospital visit on Keppra 500 mg twice daily and yesterday I increased to 750 mg twice daily. Clinically patient feels drastically better with medication as well as the use of Ativan yesterday. Inform patient is tolerating the medication well. * Patient was notified that per the [place] DMV because of seizures, to avoid driving for 6 months until seizure-free. Avoid heights, avoid swimming consider or using heavy machinery. * CHAI is negative, SSA/SSB are negative, anti-Mckeon antibody is negative, rheumatoid factor is less than 15, ESR is 20, HIV is nonreactive, Lyme is negative, Treponema pallidum antibody is nonreactive * Pending C ANCA, herpes 1/2, HTLV, lupus anticoagulant. * MRI of the brain: Chronic appearing scattered multiple bilateral punctate microvascular ischemic type changes. In the body report it is reported differential diagnosis could be include vasculitis, multiple sclerosis or Lyme disease. I * Highly recommend MRI of the cervical spine and thoracic spine with and without to rule out multiple sclerosis as well as lumbar puncture since the patient stated that she has been having chronic shooting pain whenever she coughs and she feels it is the neck goes to the chest and arms and this can be considered as an outpatient since this is a chronic issue. Also patient is on Plavix so cannot lumbar puncture since has to be off of it for 5 days * Carotid Doppler revealed atheromatous plaquing without significant flow limiting stenosis. Right vertebral unable to visualize. Left vertebral had antegrade flow. * 2-D echo had recent 2D echo at outside facility, therefore will hold off repeat echo from neurological perspective. * Patient has ALLERGY to aspirin. Per Dr. Matos Plavix 75 mg daily. * Hemoglobin A1c 7.4 on 08/13/2024. Patient has been started on metformin recently. IM to address. * Lipid panel with cholesterol 235, LDL 139, HDL 59 and triglycerides 178. Agree with starting high-intensity statins, Lipitor 80 mg. * B12: 177: I spoke with primary attending and he states patient is refuses IM and wants PO. I will defer management to primary team. * folate: 7, I started on folic acid 1mg daily. * Recommend the patient to follow-up with a neurologist as an outpatient within 2 weeks. The plan is discussed with patient and her who is at bedside. Also discussed with primary team. Patient is doing clinically better and there is no further neurological workup. Is cleared from a neurologic perspective. Time with Patient: Less than 30
[2024-09-02 12:53] LABS: C-ANCA <1:20 Titer (<1:20)
[2024-09-02 14:04] LABS: APTT 34 Sec(s) (<43); Dilute Russell Viper Venom 32 Sec(s) (<44)
== END 2024-09-01 13:26 | disposition home or self-care (01) | DRG 101 ==
LOC: EC 09:55 → 3SCARD 12:15 → OBSVTOIN 08-31 18:11
PROVIDERS: ADMIT Internal Medicine; ATTEND Internal Medicine
PROC: 4A10X4Z Monitoring of Central Nervous Electrical Activity, External Approach (ICD-10-PCS; principal; 2024-08-31)
DX: R56.9 Unspecified convulsions (principal); R47.01 Aphasia; M48.061 Spinal stenosis, lumbar region without neurogenic claudication; K14.8 Other diseases of tongue; R27.0 Ataxia, unspecified; F32.A Depression, unspecified; I10 Essential (primary) hypertension; F41.9 Anxiety disorder, unspecified; E53.8 Deficiency of other specified B group vitamins; K58.9 Irritable bowel syndrome, unspecified; Z79.84 Long term (current) use of oral hypoglycemic drugs; E06.3 Autoimmune thyroiditis; E11.9 Type 2 diabetes mellitus without complications; K21.9 Gastro-esophageal reflux disease without esophagitis; M19.90 Unspecified osteoarthritis, unspecified site; M48.00 Spinal stenosis, site unspecified; Z88.5 Allergy status to narcotic agent; Z88.6 Allergy status to analgesic agent; Z79.890 Hormone replacement therapy; Z87.891 Personal history of nicotine dependence; Z90.710 Acquired absence of both cervix and uterus; Z79.899 Other long term (current) drug therapy; Z91.81 History of falling; Z90.49 Acquired absence of other specified parts of digestive tract
CPT/HCPCS: 36415; 70450; 70553; 80053; 80061; 80076; 82330; 82607; 82746; 83036; 83735; 85025; 85610; 85613; 85652; 85730; 86038; 86160; 86235; 86255; 86431; 86618; 86780; 86790; 87390; 87529; 93005; 93880; 95816; 95819; 99285

== ENCOUNTER → 2025-01-17 | Outpatient (CLI) | payer MEDICARE ==
[2025-01-17 10:45] LABS: ALT 16 U/L (8-44); AST 14 U/L (13-35); Albumin 4.2 g/dL (3.8-4.9); Albumin/Globulin Ratio 1.68 Ratio (1.60-3.17); Alkaline Phosphatase 88 U/L (41-126); BUN/Creat Ratio 21.75 Ratio (12.00-20.00); Blood Urea Nitrogen 17.4 mg/dL (9.0-27.0); Calcium 9.2 mg/dL (8.7-10.3); Carbon Dioxide 26.3 mmol/L (21.6-31.8); Chloride 104 mmol/L (96-109); Chol/HDL Ratio 3.25 Ratio; Globulin 2.5 g/dL (1.6-3.3); Glucose 120 mg/dL (70-110); LDL Cholesterol,Calculated 107.1 mg/dL (0.0-131.0); Potassium 4.4 mmol/L (3.5-5.5); Sodium 140 mmol/L (135-145); T4, Free (Free Thyroxine) 1.62 ng/dL (0.80-1.80); Total Bilirubin 0.4 mg/dL (0.3-1.2); Total Protein 6.7 g/dL (6.2-8.2)
[2025-01-17 18:16] LABS: Microalbumin Creatinine Ratio <7 mg/g Cr (0-30)
== END | disposition home or self-care (01) ==
LOC: LABWHC1 07:40
PROVIDERS: ATTEND Internal Medicine
DX: E03.9 Hypothyroidism, unspecified (principal); E11.65 Type 2 diabetes mellitus with hyperglycemia
CPT/HCPCS: 36415; 80053; 80061; 82043; 82570; 83036; 84439; 84443

== ENCOUNTER → 2025-01-25 | Outpatient (CLI) | payer MEDICARE ==
--- NOTE | 2025-01-25 16:09 | US ---
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 FINDINGS: GLAND SIZE: Right Lobe: 2.5 x 1.1 x 0.9 cm Overall Parenchyma: heterogeneous Left Lobe: 2.6 x 1.2 x 0.9 cm Overall Parenchyma: heterogeneous Isthmus Thickness: 0.3 cm NODULES RIGHT: # of nodules measured on right: 0 LEFT: # of nodules measured on left: 0 ISTHMUS: # of nodules measured in the isthmus: 0 Bilateral neck scanned, no evidence of lymphadenopathy. Thyroid gland small in size, heterogeneous, h ypoechoic, lobulated, without evidence of definite nodules. IMPRESSION: Atrophic heterogenous thyroid gland without discrete nodules. [facility], , 01/25/2025 4:07 PM
== END | disposition home or self-care (01) ==
LOC: RADUSWWP 15:36
PROVIDERS: ATTEND Internal Medicine
DX: E04.1 Nontoxic single thyroid nodule (principal); E03.4 Atrophy of thyroid (acquired)
CPT/HCPCS: 76536